=== PATIENT | male | born 1940 | race Caucasian/White ===

== ENCOUNTER 2020-02-09 12:39 | Outpatient (CLI) | payer MEDICARE, OTHER, SELFPAY ==
--- NOTE | ~2020-02-09 | MR_ITS ---
EXAMINATION: MR cervical spine wo con EXAM DATE: 02/09/2020 14:46 INDICATION: Tingling down both arms, progressing. Neck and arm pain. TECHNIQUE: Multi-sequential, multiplanar MR images of the cervical spine were obtained without contra st. Axial T2, axial T2 MERGE sequence. Sagittal T1, T2, T2 fat saturation images also obtained. The re are no prior studies for comparison. FINDINGS: Fused C5-6 vertebral bodies with reversal of normal cervical lordosis. There is moderate d isc disease at C6-7 and mild to moderate C7-T1. The spinal cord signal intensity and intrinsic morpho logy is normal. Cervicomedullary junction is normal in appearance. There are no suspicious marrow sig nal abnormalities. Paraspinal soft tissue is unremarkable. Level by level evaluation: C2-C3: Disc does not extend beyond the endplate margin. Uncovertebral joint arthropathy: None. Facet joint arthropathy: Moderate right, mild to moderate left. Neural foraminal stenosis: Mild to moderate right. Central canal stenosis: No stenosis. C3-C4: There is a mild diffuse disc bulge. Uncovertebral joint arthropathy: Mild to moderate right, mild left. Facet joint arthropathy: Severe right, mild left. Neural foraminal stenosis: Moderate to severe right, mild to moderate left. Central canal stenosis: Minimal. C4-C5: Disc does not extend beyond the endplate margin. Uncovertebral joint arthropathy: Mild to moderate bilateral. Facet joint arthropathy: Severe right, mild left. Neural foraminal stenosis: Mild to moderate right, mild left. Central canal stenosis: No stenosis. C5-C6: This level is fused. Uncovertebral joint arthropathy: Fused, but moderate hypertrophy on the left and mild on the right. Facet joint arthropathy: Mild. Neural foraminal stenosis: Mild left. Central canal stenosis: No stenosis. C6-C7: There is a moderate diffuse disc bulge. Uncovertebral joint arthropathy: Severe. Facet joint arthropathy: Mild to moderate. Neural foraminal stenosis: Moderate to severe bilateral. Central canal stenosis: Mild to moderate . Central canal measures 6-7 mm in mid sagittal AP diameter . C7-T1: There is a moderate diffuse disc bulge. Uncovertebral joint arthropathy: Severe right, moderate to severe left. Facet joint arthropathy: Moderate bilateral. Neural foraminal stenosis: Severe right, moderate to severe left. Central canal stenosis: Mild. IMPRESSION: 1. Advanced arthropathy contributing to significant multilevel neural foraminal stenosis. Reviewed, dictated and finalized at location B. IMPRESSION: 1. Advanced arthropathy contributing to significant multilevel neural foramina l stenosis.
== END 2020-02-09 12:40 | disposition home or self-care (01) ==
LOC: ANHIMG 12:43
PROVIDERS: PCP Internal Medicine
DX: M54.2 Cervicalgia (principal)
CPT/HCPCS: 72141

== ENCOUNTER 2020-05-25 13:34 | Emergency (ER) | payer MEDICARE, OTHER, SELFPAY ==
[2020-05-25 13:46] VITALS: BP 161/87; PULSE 85; RESP 20; TEMP 36.8; O2SAT 99
--- NOTE | 2020-05-25 14:12 | ED.SKABFB ---
HPI - Skin/Abscess/Foreign Bdy General Chief complaint: Skin/Abscess/Foreign Body Stated complaint: rash Time Seen by Provider: 05/25/20 14:05 Source: patient Mode of arrival: ambulatory Limitations: no limitations History of Present Illness HPI narrative: Patient is an 80-year-old male who presents complaining of rash to chest intermittently x2 months, with increased itching starting early a.m. Patient also reports small patch of rash to the left lower leg. He reports using lotion this a.m. without relief. He denies using new soaps, detergents, or lotions. He denies all other complaints. MD complaint: rash Related Data Home Medications Medication Instructions Recorded Confirmed albuterol sulfate 90 mcg/actuation 1 inhalation INHALATION Q4H 07/20/19 03/12/20 aerosol inhaler aspirin 81 mg tablet,delayed 81 mg PO DAILY 07/20/19 03/12/20 release azelastine 137 mcg (0.1 %) nasal 137 mcg NASAL Q12H 07/20/19 03/12/20 spray aerosol clopidogrel 75 mg tablet 75 mg PO DAILY 07/20/19 03/12/20 febuxostat 40 mg tablet 40 mg PO DAILY 07/20/19 03/12/20 nitroglycerin 0.4 mg sublingual 0.4 mg SUBLINGUAL Q5M PRN 07/20/19 03/12/20 tablet pantoprazole 40 mg tablet,delayed 40 mg PO QAM 07/20/19 03/12/20 release pregabalin 75 mg capsule 75 mg PO BID 07/20/19 03/12/20 vit C 250 mg-E 200 unit-zinc 40 1 tablet PO BID 07/20/19 03/12/20 mg-copper 1 sa-lchmuq-ovvxgb capsule metoprolol succinate 50 mg 25 mg PO BID tablet 12/13/19 03/12/20 tablet,extended release 24 hr midodrine 2.5 mg tablet 2.5 mg PO BID tablet 12/13/19 03/12/20 polymyxin B sulfate 10,000 2 drop OPHTHALMIC (EYE) ONCE ml 12/13/19 03/12/20 unit-trimethoprim 1 mg/mL eye drops vbqfuiwxwrzue-hezlsihd-srorloe 500 1 tablet PO .at bedtime PRN tablet 02/08/20 03/12/20 mg-25 mg-15 mg tablet tamsulosin 0.4 mg capsule 0.8 mg PO DAILY cap 02/08/20 03/12/20 Allergies Allergy/AdvReac Type Severity Reaction Status Date / Time Eanoevg-Fxc-Xnv Reductase Allergy Unknown Muscle Verified 05/25/20 14:12 Inhibitor Twitching zolpidem Allergy Unknown Mental Verified 05/25/20 14:12 Status change meperidine AdvReac Unknown Nausea and Verified 05/25/20 14:12 Vomiting Review of Systems Review of Systems: Narrative: CONSTITUTIONAL: Denies fever, chills, or sweats. EYES: Denies visual changes, redness, or discharge. ENT: Denies rhinorrhea, congestion, sore throat, or otalgia. CARDIOVASCULAR: Denies chest pain, palpitations, or edema. RESPIRATORY: Denies cough or dyspnea. GASTROINTESTINAL: Denies abdominal pain, nausea, vomiting, or diarrhea. GENITOURINARY: Denies dysuria or hematuria. SKIN: Reports rash and itching to chest MUSCULOSKELETAL: Denies back pain, joint pain, or myalgia. NEUROLOGIC: Denies headache, numbness, dizziness, or weakness. PSYCHIATRIC: Denies anxiety or depression. [facility] Past Medical History Medical History Heart attack 2012 History of left heart catheterization 2011,2018,2019 History of stroke 2019 Hypothyroidism (acquired) Torn rotator cuff Vitamin D deficiency, unspecified Surgical History Surgical History History of appendectomy 1962 History of back surgery 1986, 1990 History of heart bypass surgery Triple bypass 2018 History of throat surgery History of tonsillectomy Status post trigger finger release Family History Family History Mother Family history of diabetes mellitus in first degree relative Diabetes mellitus Kidney disease Father Family history of congestive heart failure Macular degeneration Sibling Macular degeneration Social History Social History Smoking status: Never smoker Second hand tobacco smoke exposure: No Alcohol intake: current Exam Narrative:
== END 2020-05-25 14:34 | disposition home or self-care (01) ==
LOC: EXPTROY 14:35 → EXPTRAD 06-04 11:45
PROVIDERS: Emergency Provider Nurse Practitioner; PCP Internal Medicine
DX: L25.9 Unspecified contact dermatitis, unspecified cause (principal); I25.2 Old myocardial infarction; Z86.73 Personal history of transient ischemic attack (TIA), and cerebral infarction without residual deficits; E03.9 Hypothyroidism, unspecified; Z95.1 Presence of aortocoronary bypass graft; Z79.82 Long term (current) use of aspirin
CPT/HCPCS: 73030; 99213; G0463

== ENCOUNTER → 2020-06-04 13:34 | Outpatient (CLI) | payer MEDICARE, OTHER, SELFPAY ==
--- NOTE | ~2020-06-04 | XR_ITS ---
CORRECTED REPORT Moved from [id number] to [id number]. 06/11/2020 isaura EXAMINATION: XR shoulder LT min 2V DATE: 06/04/2020 11:55 INDICATION: Left shoulder pain. TECHNIQUE: 4 views of left shoulder were obtained. COMPARISON: None. FINDINGS: Bone alignment is normal. No fracture. There is mild osteoarthritis of glenohumeral joint and severe osteoarthritis of acromioclavicular joint. Median sternotomy wires and mediastinal surgical clips are seen, likely from prior coronary artery bypass grafting. There is a vascular stent in the mediastinum. IMPRESSION: 1. Polyarticular osteoarthritis. Reviewed, dictated and finalized at location A. AMIN MESSINA
== END ==
PROVIDERS: PCP Internal Medicine; Visit Provider Internal Medicine
DX: M19.012 Primary osteoarthritis, left shoulder (principal)
CPT/HCPCS: 73030

== ENCOUNTER 2020-07-16 17:28 | Inpatient (IN) | payer MEDICARE, OTHER, SELFPAY ==
[2020-07-16] VITALS (7 sets, daily range): BP systolic 146–169; BP diastolic 75–86; PULSE 93–108; RESP 20–24; TEMP 36.2–37.8; O2SAT 90–100; BMI 27.3
--- NOTE | ~2020-07-16 | XR_ITS ---
EXAMINATION: XR chest 1V portable DATE: 07/19/2020 18:07 INDICATION: COVID positive. Shortness of breath. TECHNIQUE: frontal view of the chest was obtained. COMPARISON: Chest radiograph dated 07/16/2020 FINDINGS: Improved expansion of the lungs with resolution of prior airspace opacities. No new opacities, pulmon vibha edema, pleural effusion or pneumothorax. The cardiomediastinal silhouette is normal. Median tolliver otomy wires and mediastinal surgical clips are seen, likely from prior coronary artery bypass graftin g. Left pectoral implantable monitor tech. IMPRESSION: 1. Resolution of prior airspace opacities. No evident acute cardiopulmonary disease. Reviewed, dictated and finalized at location A. T DESK ADMIN IMPRESSION: 1. Resolution of prior airspace opacities. No evident acute cardiopulmonary dis ease.
--- NOTE | ~2020-07-16 | XR_ITS ---
EXAMINATION: XR chest 1V portable DATE: 07/16/2020 18:06 INDICATION: COVID positive. Shortness of breath. TECHNIQUE: frontal view of the chest was obtained. COMPARISON: Chest radiograph dated 01/01/[address] dated 02/22/2019 FINDINGS: Subtle airspace opacities in the left mid and lower and right lower lung zones. No pleural effusion o r pneumothorax. The cardiomediastinal silhouette is normal. Median sternotomy wires and mediastinal s urgical clips are seen, likely from prior coronary artery bypass grafting. Left pectoral implantable consumer marketing specialist. IMPRESSION: 1. Subtle opacities in the left mid and bilateral lower lung zones which could represent pneumonia, a telectasis or mild pulmonary edema. Reviewed, dictated and finalized at location A. UAL CLASSROOM MANAGER IMPRESSION: 1. Subtle opacities in the left mid and bilateral lower lung zones which could represent pneumonia, atelectasis or mild pulmonary edema.
--- NOTE | 2020-07-16 17:35 | ECG_ITS ---
Measurements Intervals [place] Rate: 94 P: 10 AL: 172 QRS: -55 QRSD: 98 T: 20 QT: 333 QTc: 418 Interpretive Statements SINUS RHYTHM POSSIBLE LEFT ATRIAL ENLARGEMENT RSR' IN V1 OR V2, CONSIDER RIGHT VENTRICULAR HYPERTROPHY OR RIGHT VCD LEFT ANTERIOR FASCICULAR BLOCK POOR R WAVE PROGRESSION, ANTERIOR LEADS ABNORMAL ECG Electronically Signed On 07-17-2020 6:59:13 RANGE ECOLOGIST by James Sanchez D.O.
--- NOTE | 2020-07-16 18:03 | ED.GENADULT ---
HPI - General Adult General Chief complaint: Shortness of Breath/Dyspnea Stated complaint: covid +, sob Time Seen by Provider: 07/16/20 17:49 Source: patient History of Present Illness HPI narrative: Patient is a 80 y/o male complaining of severe cough starting 2 weeks ago. He states that he has been taking [place] cough drop which did not help. He is not coughing up anything. He also has intermittent fever and SOB. He tested positive for COVID on 07/10. Related Data Home Medications Medication Instructions Recorded Confirmed albuterol sulfate 90 mcg/actuation 1 inhalation INHALATION Q4H 07/20/19 07/05/20 aerosol inhaler aspirin 81 mg tablet,delayed 81 mg PO DAILY 07/20/19 07/05/20 release azelastine 137 mcg (0.1 %) nasal 137 mcg NASAL Q12H 07/20/19 07/05/20 spray aerosol clopidogrel 75 mg tablet 75 mg PO DAILY 07/20/19 07/05/20 febuxostat 40 mg tablet 40 mg PO DAILY 07/20/19 07/05/20 nitroglycerin 0.4 mg sublingual 0.4 mg SUBLINGUAL Q5M PRN 07/20/19 07/05/20 tablet pantoprazole 40 mg tablet,delayed 40 mg PO QAM 07/20/19 07/05/20 release pregabalin 75 mg capsule 75 mg PO BID 07/20/19 07/05/20 metoprolol succinate 50 mg 25 mg PO BID tablet 12/13/19 07/05/20 tablet,extended release 24 hr polymyxin B sulfate 10,000 2 drop OPHTHALMIC (EYE) ONCE ml 12/13/19 07/05/20 unit-trimethoprim 1 mg/mL eye drops ijhywvcafzbsv-uovuvhsc-pjtakdl 500 1 tablet PO .at bedtime PRN tablet 02/08/20 07/05/20 mg-25 mg-15 mg tablet tamsulosin 0.4 mg capsule 0.4 mg PO DAILY cap 02/08/20 07/05/20 acetaminophen 500 mg PO DAILY 05/25/20 07/05/20 insulin aspart U-100 [Novolog 1 sliding scale dose SUBCUT 05/25/20 07/05/20 U-100 Insulin aspart] USEASDIRECTD insulin glargine 34 unit SUBCUT QPM 05/25/20 07/05/20 vit C,H-Uq-hkssw-lutein-zeaxan 1 tablet PO BID 05/25/20 07/05/20 [PreserVision AREDS-2] vitamin B complex [B 1 tablet PO DAILY 05/25/20 07/05/20 Complex-Vitamin B12] midodrine 5 mg tablet 5 mg PO BID tablet 06/04/20 07/05/20 ticagrelor 60 mg tablet 60 mg PO Q12H 07/05/20 07/05/20 Allergies Allergy/AdvReac Type Severity Reaction Status Date / Time Qwqgrqd-Jlj-Ctf Reductase Allergy Unknown Muscle Verified 07/05/20 10:27 Inhibitor Twitching zolpidem Allergy Unknown Mental Verified 07/05/20 10:27 Status change meperidine AdvReac Unknown Nausea and Verified 07/05/20 10:27 Vomiting Review of Systems Constitutional: Constitutional: Denies chills, Reports fever(s), Denies headache(s) and Denies weakness Eyes: Eyes: Denies blurry vision ENT: Denies headache(s) and Denies neck pain Cardiovascular: Cardiovascular: Denies chest pain and Reports dyspnea Respiratory: Respiratory: Reports cough and Reports dyspnea Gastrointestinal: Gastrointestinal: Denies abdominal pain, Denies diarrhea, Denies nausea and Denies vomiting Genitourinary: Genitourinary: Denies hematuria and Denies dysuria Musculoskeletal: Musculoskeletal: Denies back pain and Denies neck pain Neurologic: Denies headache(s) and Denies weakness PMFSH Past Medical History Medical History Heart attack 2012 History of left heart catheterization 2011,2018,2019 History of stroke 2019 Hypothyroidism (acquired) Torn rotator cuff Vitamin D deficiency, unspecified Surgical History Surgical History History of appendectomy 1963 History of back surgery 1986, 1990 History of heart bypass surgery Triple bypass 2018 History of throat surgery History of tonsillectomy Status post trigger finger release Family History Family History Mother Family history of diabetes mellitus in first degree relative Diabetes mellitus Kidney disease Father Family history of congestive heart failure Macular degeneration Sibling Macular degeneration Social History Social History (Review
[2020-07-16 18:27] LABS: Basophils Percent Auto 0.3 % (0.2-1.2); Eosinophils Percent Auto 0.8 % (0-4.4); Hemoglobin 15.4 g/dL (14.0-18.0); Immature Granulocyte Absolute 0.04 K/mm3 (0.00-0.031); Lymphocytes Absolute Auto 0.49 K/mm3 (0.9-3.2); Lymphocytes Percent Auto 12.6 % (18.3-44.2); Mean Corpuscular HGB Conc 32.1 g/dl (32-36); Mean Corpuscular Hemoglobin 27.5 pg (26-34); Mean Corpuscular Volume 85.6 fl (80-100); Mean Platelet Volume 9.4 fl (7.4-10.4); Monocytes Absolute Auto 0.4 K/mm3 (0.1-0.6); Monocytes Percent Auto 9.5 % (2.6-8.5); Neutrophils Percent Auto 75.8 % (45.5-73.1); Platelet Count Result 137 k/mm3 (150-375); Red Blood Count 5.61 M/mm3 (4.6-6.20); Red Cell Distribution Width 19.3 % (11.5-14.5); White Blood Count 3.9 K/mm3 (4.5-10.0)
[2020-07-16 18:36] LABS: Alanine Aminotransferase 19 U/L (4-50); Albumin Level 4.5 g/dL (3.5-5.1); Alkaline Phosphatase 87 U/L (38-126); Anion Gap 12 mmol/L (8-16); Aspartate Amino Transferase 41 U/L (17-59); Bilirubin,Total 0.5 mg/dL (0.2-1.3); Blood Urea Nitrogen 38 mg/dL (9-20); Calcium 8.8 mg/dL (8.4-10.2); Carbon Dioxide 20 mmol/L (22-30); Chloride 103 mmol/L (98-107); Estimated CRCL calculation 18 ml/min; Estimated Glomerular Filt Rate 19; Glucose 136 mg/dL (75-110); Potassium 5.4 mmol/L (3.4-5.0); Sodium 135 mmol/L (137-145)
[2020-07-16 18:59] LABS: Alveolar/Arterial O2 Gradient 48.2 mmHg; Base Excess ABG -8.3 mEq/l (+/-2.0); Fractional Inspired Oxygen 21 %; HCO3 ABG 14.6 mEq/l (22.0-26.0); Oxygen Content ABG 18.7 %vol (16.0-22.0); Oxygen Saturation ABG 94.7 % (95.0-100.0); Oxyhemoglobin 91.6 % THb (90.0-100.0); PCO2 ABG 24.8 mmHg (35.0-45.0); PO2 ABG 71.8 mmHg (80.0-100.0); PO2 FiO2 Ratio Arterial Blood 3.42 %; Total Hemoglobin 14.5 g/dL (12.0-18.0); pH ABG 7.389 (7.350-7.450)
[2020-07-16 19:00] LABS: Device ROOM AIR; Modified Allen's Test Pass; Site Drawn RIGHT RADIAL
--- NOTE | 2020-07-16 19:05 | PC.NURSE ---
report to litzy davis at this time, he has assumed pt care.
[2020-07-16] MEDS: SODIUM CHLORIDE 0.9% IV 1,000 ML 999 ML IV CONT (19:41)
--- NOTE | 2020-07-16 20:50 | PM.IMHP ---
H&P: HPI History of Present Illness Date/Time: 07/16/20 20:50 Chief complaint: Covid pneumonia Narrative: Freddy Ferguson is a 80 year old male with PMHx significant for CAD s/p CABG in 2018, recent PTCI earlier in June of this year, patient attended a wedding a week ago patient states that ever since he has not been feeling well, has had generalized weakness, dry cough, loss of sense of smell and taste, sob, fevers, chills, poor appetite. Patient tested positive for Covid 19 novel virus. Preliminary work up was significant for chest xr with infiltrates. Review of Systems Review of Systems: Narrative: Generalized malaise, generalized weakness, loss of taste and smell. Constitutional: Comments: Fevers, rigors, chills. Eyes: Comments: no vision changes. ENT: Comments: no ear ache, no throat pain. Cardiovascular: Comments: no chest pain. Respiratory: Comments: cough, sob. Gastrointestinal: Comments: n/v/diarrhea, poor appetite. Musculoskeletal: Comments: muscle aches and pains. Integumentary/Breasts: Comments: no rashes. Neurologic: Comments: no sensory motr deficit. Hematologic/Lymphatic: Comments: no LAP. PMFSH Past Medical History Medical History Heart attack 2012 History of left heart catheterization 2011,2018,2019 History of stroke 2019 Hypothyroidism (acquired) Torn rotator cuff Vitamin D deficiency, unspecified Surgical History Surgical History History of appendectomy 1963 History of back surgery 1990 History of heart bypass surgery Triple bypass 2018 History of throat surgery History of tonsillectomy Status post trigger finger release Family History Family History Mother Family history of diabetes mellitus in first degree relative Diabetes mellitus Kidney disease Father Family history of congestive heart failure Macular degeneration Sibling Macular degeneration Social History Social History Smoking status: Never smoker Second hand tobacco smoke exposure: No Alcohol intake: current Gender identity (if verbalized by the patient): Male Meds Home Medications and Allergies Home Medications Medication Instructions Recorded Confirmed Type albuterol sulfate 90 mcg/actuation 1 inhalation INHALATION Q4H PRN 07/20/19 07/16/20 History aerosol inhaler aspirin 81 mg tablet,delayed 81 mg PO DAILY 07/20/19 07/16/20 History release azelastine 137 mcg (0.1 %) nasal 137 mcg NASAL Q12H 07/20/19 07/17/20 History spray aerosol clopidogrel 75 mg tablet 75 mg PO DAILY 07/20/19 07/17/20 History febuxostat 40 mg tablet 40 mg PO DAILY 07/20/19 07/17/20 History nitroglycerin 0.4 mg sublingual 0.4 mg SUBLINGUAL Q5M PRN 07/20/19 07/17/20 History tablet pantoprazole 40 mg tablet,delayed 40 mg PO QAM 07/20/19 07/17/20 History release pregabalin 75 mg capsule 75 mg PO BID 07/20/19 07/17/20 History polyethylene glycol 3350 17 gram 17 gm PO DAILY #1530 each 09/05/19 07/17/20 Rx oral powder packet metoprolol succinate 50 mg 25 mg PO BID tablet 12/13/19 07/17/20 History tablet,extended release 24 hr polymyxin B sulfate 10,000 2 drop OPHTHALMIC (EYE) ONCE ml 12/13/19 07/17/20 History unit-trimethoprim 1 mg/mL eye drops cyanocobalamin (vitamin B-12) 3,000 mcg PO DAILY 90 Days #90 cap 12/20/19 07/17/20 Rx 3,000 mcg capsule svpztnhwesofk-rlmeohcc-koaivtt 500 1 tablet PO .at bedtime PRN tablet 02/08/20 07/16/20 History mg-25 mg-15 mg tablet tamsulosin 0.4 mg capsule 0.4 mg PO DAILY cap 02/08/20 07/17/20 History acetaminophen 500 mg PO DAILY 05/25/20 07/16/20 History insulin aspart U-100 [Novolog 1 sliding scale dose SUBCUT 05/25/20 07/17/20 History U-100 Insulin aspart] USEASDIRECTD insulin glargine 34 unit SUBCUT QPM 05/25/20 07/17/20 History vi
--- NOTE | 2020-07-16 22:00 | ADMGEN ---
This patient, Freddy Ferguson, was admitted to [facility] Surg Room 317-01. Patient/family oriented to hospital policies and general routines including ID bracelet, bed and alarms, visiting hours, pain management, procedures, bathroom and other care routines, personal items, smoking policy, room service/diet, and visiting hours. Information on how to activate the Rapid Response Team has been discussed. Patient/Family are encouraged to report perceived risks to care and to ask questions if they do not understand what they are told or what they should do.
[2020-07-16 23:52] LABS: Alanine Aminotransferase 16 U/L (4-50)
[2020-07-17] VITALS (8 sets, daily range): BP systolic 117–136; BP diastolic 57–77; PULSE 68–91; RESP 16–20; TEMP 36.2–36.8; O2SAT 95–97
[2020-07-17 02:31] LABS: Glucose Point of Care 113 (65-105)
[2020-07-17 06:45] LABS: Alanine Aminotransferase 15 U/L (4-50)
[2020-07-17 06:47] LABS: Sodium 134 mmol/L (137-145)
[2020-07-17 06:50] LABS: Anion Gap 10 mmol/L (8-16); Blood Urea Nitrogen 34 mg/dL (9-20); Calcium 7.8 mg/dL (8.4-10.2); Carbon Dioxide 17 mmol/L (22-30); Chloride 107 mmol/L (98-107); Estimated CRCL calculation 22 ml/min; Estimated Glomerular Filt Rate 25; Glucose 86 mg/dL (75-110); Potassium 4.8 mmol/L (3.4-5.0)
[2020-07-17] MEDS: SODIUM CHLORIDE 0.9% IV 1,000 ML 75 ML IV CONT ×2 (07:07→21:34)
[2020-07-17 09:24] LABS: Hemoglobin A1C 5.9 % (<5.7)
[2020-07-17] MEDS: METOPROLOL SUCCINATE EXT REL 25 MG TABCR PO ×2 (10:19→21:35)
[2020-07-17] MEDS: POLYMYXIN/TRIMETHOPRIM OPHTH 10 ML DROPS 2 DROP EACH EYE (10:20)
[2020-07-17] MEDS: polyethylene glycoL 3350 17 GM POWD.PACK PO (10:20)
[2020-07-17] MEDS: TICAGRELOR 60 MG TABLET PO ×2 (10:21→21:35)
[2020-07-17] MEDS: PANTOPRAZOLE 40 MG TABLET PO (10:21)
[2020-07-17] MEDS: TAMSULOSIN HCL 0.4 MG CAPSULE PO (10:21)
[2020-07-17] MEDS: CYANOCOBALAMIN 1,000 MCG TABLET 3000 MCG PO (10:21)
[2020-07-17] MEDS: VITAMIN B COMPLEX CAPSULE 1 CAP PO (10:22)
[2020-07-17] MEDS: MIDODRINE HCL 2.5 MG TABLET 5 MG PO ×2 (10:22→17:16)
[2020-07-17] MEDS: OPTI-GEN TAB 1 TABLET PO ×2 (10:22→17:16)
[2020-07-17] MEDS: ASPIRIN 81 MG ENTERIC TABLET PO (10:22)
[2020-07-17] MEDS: LEVOTHYROXINE SODIUM 25 MCG TABLET PO (10:22)
[2020-07-17] MEDS: ENOXAPARIN 30 MG/0.3 ML SYRINGE SUB-Q (10:23)
[2020-07-17] MEDS: AZELASTINE HCL NASAL 0.1% 137 MCG/SPR 30 ML BTL 1 SPRAY NASAL ×2 (10:23→21:36)
[2020-07-17] MEDS: DEXAMETHASONE 2 MG TABLET 6 MG PO (10:23)
[2020-07-17] MEDS: ACETAMINOPHEN 500 MG TABLET PO (10:26)
[2020-07-17] MEDS: PREGABALIN (*CRX) 75 MG CAPSULE PO ×2 (10:26→17:15)
[2020-07-17 12:05] LABS: Glucose Point of Care 152 (65-105)
--- NOTE | 2020-07-17 15:55 | PM.IMPN ---
Progress Note: A&P Assessment and Plan (1) COVID-19 virus infection: Code(s): U07.1 - COVID-19 Status: Acute Assessment and Plan: Chest xr with infiltrates, patient with significant PMHx for CAD, T2DM, CABG, recent PTCI. Started on Remdesivir + Dexamethasone (2) Ischemic cardiomyopathy: Code(s): I25.5 - Ischemic cardiomyopathy Status: Acute Assessment and Plan: Continue home meds Stable (3) Chronic atrial fibrillation: Onset Date: 03/08/19 Code(s): I48.20 - Chronic atrial fibrillation, unspecified Status: Acute Assessment and Plan: Rate controlled Not on anticoagulation (4) Chronic diastolic heart failure with preserved ejection fraction: Code(s): I50.32 - Chronic diastolic (congestive) heart failure Status: Acute Assessment and Plan: Stable (5) Chronic gout, unspecified, without tophus (tophi): Code(s): M1A.9XX0 - Chronic gout, unspecified, without tophus (tophi) Status: Chronic Assessment and Plan: Stable (6) Chronic kidney disease, stage 3 (moderate): Onset Date: 03/08/19 Code(s): N18.3 - Chronic kidney disease, stage 3 (moderate) Status: Chronic Assessment and Plan: creat is 2.5 (7) JACK (acute kidney injury): Code(s): N17.9 - Acute kidney failure, unspecified Status: Acute Assessment and Plan: continue hydration, creat is 2.4 Subjective Date/time seen: 07/17/20 15:55 Interval history: 80 year old male with PMHx significant for CAD s/p CABG in 2018, recent PTCI earlier in June of this year, patient attended a wedding a week ago patient states that ever since he has not been feeling well, has had generalized weakness, dry cough, loss of sense of smell and taste, sob, fevers, chills, poor appetite. Patient tested positive for Covid 19 novel virus. Chest hurts and dry cough. no headache. Review of Systems Review of Systems: All systems reviewed & are unremarkable except as noted in HPI and below Exam Narrative: Exam Narrative: pleasant man elderly comfortable off oxygen Resp: Effort & Inspection: normal respiratory effort GI: Inspection: normal to inspection Skin: General skin exam: normal color Lesions: no lesions Rashes: no rashes Neuro: General: patient oriented x3 and CN's II-XI intact bilaterally Cranial nerves: Yes CN's II-XII intact bilaterally and Yes Equal, round and reactive pupils present Cognition (Neuro): normal cognition Speech: normal speech Gait exam (Neuro): Normal gait present Motor exam (neuro): 5/5 motor strength present throughout Extrem: General: other (excoriations on both legs with bandages on ) Objective Data Vital Signs Vital Signs: Vital Signs - 24 hr 07/16/20 17:32 07/16/20 17:51 07/16/20 18:30 Temperature 36.2 C L Pulse Rate 105 H 104 H 93 Respiratory Rate 24 H 20 Blood Pressure 146/81 H 169/86 H Pulse Oximetry 93 90 100 07/16/20 19:02 07/16/20 20:49 07/16/20 22:00 Temperature 37.8 C H Pulse Rate 94 96 97 Respiratory Rate 21 H 22 H 20 Blood Pressure 155/81 H 157/86 H 147/75 H Pulse Oximetry 96 98 96 07/16/20 22:30 07/17/20 00:00 07/17/20 04:00 Temperature 36.8 C 36.6 C Pulse Rate 108 H 91 82 Respiratory Rate 20 20 Blood Pressure 133/77 136/70 Pulse Oximetry 96 95 07/17/20 08:00 07/17/20 10:19 07/17/20 12:00 Temperature 36.3 C L 36.3 C L Pulse Rate 80 82 82 Respiratory Rate 16 18 Blood Pressure 122/66 130/63 Pulse Oximetry 96 97 Intake/Output Intake/Output: Intake & Output 07/14/20 07/15/20 07/16/20 07/17/20 23:59 23:59 23:59 23:59 Intake Total 1000 440 Output Total 300 Balance 1000 140 Meds/Results Medications: Active Medications Generic Name Dose Route Start Last Admin Trade Name Freq PRN Reason Stop Dose Admin Acetaminophen 650 mg 07/16/20 20:52 Acetaminophen 325 Mg Tablet PO Q4H PRN Mild Pain (1-3) or Fever Acetaminoph
[2020-07-17] MEDS: INSULIN GLARGINE (*BKC) 100 UNITS/ML 34 UNITS SUB-Q (17:12)
[2020-07-17] MEDS: LORATADINE 5 MG TABLET PO (17:17)
[2020-07-17 18:18] LABS: Glucose Point of Care 164 (65-105)
[2020-07-17 21:53] LABS: Glucose Point of Care 187 (65-105)
[2020-07-18] VITALS (8 sets, daily range): BP systolic 133–147; BP diastolic 68–83; PULSE 59–103; RESP 16–20; TEMP 36.3–36.7; O2SAT 96–99
[2020-07-18] MEDS: LEVOTHYROXINE SODIUM 25 MCG TABLET PO (05:54)
[2020-07-18 07:12] LABS: Alanine Aminotransferase 19 U/L (4-50)
[2020-07-18] MEDS: DEXAMETHASONE 2 MG TABLET 6 MG PO (07:59)
[2020-07-18 08:12] LABS: Glucose Point of Care 144 (65-105)
[2020-07-18] MEDS: ERGOCALCIFEROL 50,000 UNIT CAPSULE 50000 UNITS PO (08:14)
[2020-07-18] MEDS: PANTOPRAZOLE 40 MG TABLET PO (08:15)
[2020-07-18] MEDS: VITAMIN B COMPLEX CAPSULE 1 CAP PO (08:15)
[2020-07-18] MEDS: CYANOCOBALAMIN 1,000 MCG TABLET 3000 MCG PO (08:15)
[2020-07-18] MEDS: OPTI-GEN TAB 1 TABLET PO ×2 (08:16→16:24)
[2020-07-18] MEDS: POLYMYXIN/TRIMETHOPRIM OPHTH 10 ML DROPS 2 DROP EACH EYE (08:17)
[2020-07-18] MEDS: TAMSULOSIN HCL 0.4 MG CAPSULE PO (08:17)
[2020-07-18] MEDS: ENOXAPARIN 30 MG/0.3 ML SYRINGE SUB-Q (08:17)
[2020-07-18] MEDS: ASPIRIN 81 MG ENTERIC TABLET PO (08:17)
[2020-07-18] MEDS: TICAGRELOR 60 MG TABLET PO ×2 (08:18→20:50)
[2020-07-18] MEDS: MIDODRINE HCL 2.5 MG TABLET 5 MG PO ×2 (08:18→16:24)
[2020-07-18] MEDS: METOPROLOL SUCCINATE EXT REL 25 MG TABCR PO ×2 (08:18→20:50)
[2020-07-18] MEDS: polyethylene glycoL 3350 17 GM POWD.PACK PO (08:19)
[2020-07-18] MEDS: AZELASTINE HCL NASAL 0.1% 137 MCG/SPR 30 ML BTL 1 SPRAY NASAL ×2 (08:43→20:50)
[2020-07-18] MEDS: ACETAMINOPHEN 500 MG TABLET PO (09:12)
[2020-07-18] MEDS: PREGABALIN (*CRX) 75 MG CAPSULE PO ×2 (09:13→16:24)
[2020-07-18 11:47] LABS: Glucose Point of Care 187 (65-105)
[2020-07-18 16:39] LABS: Glucose Point of Care 184 (65-105)
--- NOTE | 2020-07-18 16:48 | PM.IMPN ---
Progress Note: A&P Assessment and Plan (1) COVID-19 virus infection: Code(s): U07.1 - COVID-19 Status: Acute Assessment and Plan: Chest xr with infiltrates, patient with significant PMHx for CAD, T2DM, CABG, recent PTCI. Dexamethasone, Remdesivir was never started because creat was high, creat is high today 2.5 add albuterol and tessalon perles (2) Ischemic cardiomyopathy: Code(s): I25.5 - Ischemic cardiomyopathy Status: Acute Assessment and Plan: Continue home meds Stable (3) Chronic atrial fibrillation: Onset Date: 03/08/19 Code(s): I48.20 - Chronic atrial fibrillation, unspecified Status: Acute Assessment and Plan: Rate controlled Not on anticoagulation (4) Chronic diastolic heart failure with preserved ejection fraction: Code(s): I50.32 - Chronic diastolic (congestive) heart failure Status: Acute Assessment and Plan: Stable (5) Chronic gout, unspecified, without tophus (tophi): Code(s): M1A.9XX0 - Chronic gout, unspecified, without tophus (tophi) Status: Chronic Assessment and Plan: Stable (6) Chronic kidney disease, stage 3 (moderate): Onset Date: 03/08/19 Code(s): N18.3 - Chronic kidney disease, stage 3 (moderate) Status: Chronic Assessment and Plan: creat is 2.5, continue fluids. no perpherial edema ok to continue (7) JACK (acute kidney injury): Code(s): N17.9 - Acute kidney failure, unspecified Status: Acute Assessment and Plan: continue hydration, creat is 2.4 Subjective Date/time seen: 07/18/20 16:48 Interval history: 80 year old male with PMHx significant for CAD s/p CABG in 2018, recent PTCI earlier in June of this year, patient attended a wedding a week ago patient states that ever since he has not been feeling well, has had generalized weakness, dry cough, loss of sense of smell and taste, sob, fevers, chills, poor appetite. Patient tested positive for Covid 19 novel virus. Dry cough, tired and weak Review of Systems Review of Systems: All systems reviewed & are unremarkable except as noted in HPI and below Exam Narrative: Exam Narrative: pleasant man elderly looks unwell, pt has a wet cough Resp: Effort & Inspection: normal respiratory effort GI: Inspection: normal to inspection Skin: General skin exam: normal color Lesions: no lesions Rashes: no rashes Wounds: no wounds Neuro: General: patient oriented x3 and CN's II-XI intact bilaterally Cranial nerves: Yes CN's II-XII intact bilaterally and Yes Equal, round and reactive pupils present Cognition (Neuro): normal cognition Speech: normal speech Gait exam (Neuro): Normal gait present Motor exam (neuro): 5/5 motor strength present throughout Extrem: General: normal to inspection, full ROM and no pedal edema Objective Data Vital Signs Vital Signs: Vital Signs - 24 hr 07/17/20 20:00 07/17/20 21:35 07/18/20 00:00 Temperature 36.6 C 36.7 C Pulse Rate 68 72 64 Respiratory Rate 20 20 Blood Pressure 117/66 147/74 H Pulse Oximetry 96 99 07/18/20 04:00 07/18/20 08:00 07/18/20 08:18 Temperature 36.7 C 36.6 C Pulse Rate 63 67 65 Respiratory Rate 20 18 Blood Pressure 142/76 H 145/75 H Pulse Oximetry 97 99 07/18/20 12:00 Temperature 36.6 C Pulse Rate 66 Respiratory Rate 18 Blood Pressure 136/83 Pulse Oximetry 98 Intake/Output Intake/Output: Intake & Output 07/15/20 07/16/20 07/17/20 07/18/20 23:59 23:59 23:59 23:59 Intake Total 1000 2230 1440 Output Total 420 600 Balance 1000 1810 840 Meds/Results Medications: Active Medications Generic Name Dose Route Start Last Admin Trade Name Freq PRN Reason Stop Dose Admin Acetaminophen 650 mg 07/16/20 20:52 Acetaminophen 325 Mg Tablet PO Q4H PRN Mild Pain (1-3) or Fever Acetaminophen 500 mg 07/17/20 09:00 07/18/20 09:12 Acetaminophen 500 Mg Tablet PO 500 mg DAILY PAULINO
[2020-07-18] MEDS: guaiFENesin 200 MG/10 ML UDC PO (17:03)
[2020-07-18] MEDS: LORATADINE 5 MG TABLET PO (17:05)
[2020-07-18] MEDS: INSULIN GLARGINE (*BKC) 100 UNITS/ML 34 UNITS SUB-Q (17:10)
[2020-07-18] MEDS: SODIUM CHLORIDE 0.9% IV 1,000 ML 75 ML IV CONT (17:11)
[2020-07-18] MEDS: BENZONATATE 100 MG CAPSULE PO (20:55)
[2020-07-18 22:37] LABS: Glucose Point of Care 180 (65-105)
[2020-07-19] VITALS (8 sets, daily range): BP systolic 125–149; BP diastolic 71–87; PULSE 62–76; RESP 16–20; TEMP 36.2–37.1; O2SAT 92–100
[2020-07-19] MEDS: LEVOTHYROXINE SODIUM 25 MCG TABLET PO (06:03)
[2020-07-19] MEDS: SODIUM CHLORIDE 0.9% IV 1,000 ML 75 ML IV CONT ×2 (06:07→16:59)
[2020-07-19 06:24] LABS: Hematocrit 38.8 % (42.0-52.0); Hemoglobin 12.5 g/dL (14.0-18.0); Mean Corpuscular HGB Conc 32.2 g/dl (32-36); Mean Corpuscular Hemoglobin 27.1 pg (26-34); Mean Platelet Volume 10.1 fl (7.4-10.4); Platelet Count Result 150 k/mm3 (150-375); Red Blood Count 4.62 M/mm3 (4.6-6.20); Red Cell Distribution Width 18.9 % (11.5-14.5); White Blood Count 10.4 K/mm3 (4.5-10.0)
[2020-07-19 06:41] LABS: Alanine Aminotransferase 16 U/L (4-50); Anion Gap 11 mmol/L (8-16); Blood Urea Nitrogen 39 mg/dL (9-20); Calcium 8.3 mg/dL (8.4-10.2); Carbon Dioxide 15 mmol/L (22-30); Chloride 111 mmol/L (98-107); Estimated CRCL calculation 28 ml/min; Estimated Glomerular Filt Rate 32; Glucose 128 mg/dL (75-110); Potassium 4.9 mmol/L (3.4-5.0); Sodium 137 mmol/L (137-145)
[2020-07-19] MEDS: VITAMIN B COMPLEX CAPSULE 1 CAP PO (09:39)
[2020-07-19] MEDS: MIDODRINE HCL 2.5 MG TABLET 5 MG PO ×2 (09:39→16:57)
[2020-07-19] MEDS: PANTOPRAZOLE 40 MG TABLET PO (09:39)
[2020-07-19] MEDS: OPTI-GEN TAB 1 TABLET PO ×2 (09:39→16:58)
[2020-07-19] MEDS: METOPROLOL SUCCINATE EXT REL 25 MG TABCR PO ×2 (09:39→21:03)
[2020-07-19] MEDS: CYANOCOBALAMIN 1,000 MCG TABLET 3000 MCG PO (09:40)
[2020-07-19] MEDS: BENZONATATE 100 MG CAPSULE PO ×3 (09:40→16:57)
[2020-07-19] MEDS: DEXAMETHASONE 2 MG TABLET 6 MG PO (09:40)
[2020-07-19] MEDS: TICAGRELOR 60 MG TABLET PO ×2 (09:41→21:03)
[2020-07-19] MEDS: ASPIRIN 81 MG ENTERIC TABLET PO (09:41)
[2020-07-19] MEDS: TAMSULOSIN HCL 0.4 MG CAPSULE PO (09:41)
[2020-07-19] MEDS: ENOXAPARIN 30 MG/0.3 ML SYRINGE SUB-Q (09:42)
[2020-07-19] MEDS: polyethylene glycoL 3350 17 GM POWD.PACK PO (09:42)
[2020-07-19] MEDS: PREGABALIN (*CRX) 75 MG CAPSULE PO ×2 (09:43→16:58)
[2020-07-19] MEDS: ACETAMINOPHEN 500 MG TABLET PO (09:43)
[2020-07-19] MEDS: POLYMYXIN/TRIMETHOPRIM OPHTH 10 ML DROPS 2 DROP EACH EYE (09:44)
[2020-07-19] MEDS: AZELASTINE HCL NASAL 0.1% 137 MCG/SPR 30 ML BTL 1 SPRAY NASAL ×2 (09:44→21:02)
[2020-07-19] MEDS: INSULIN ASPART (*BKC) 100 UNITS/ML SUB-Q (12:17)
[2020-07-19 13:07] LABS: Glucose Point of Care 234 (65-105)
--- NOTE | 2020-07-19 15:43 | PM.IMPN ---
Progress Note: A&P Assessment and Plan (1) COVID-19 virus infection: Code(s): U07.1 - COVID-19 Status: Acute Assessment and Plan: Chest xr with infiltrates, patient with significant PMHx for CAD, T2DM, CABG, recent PTCI. Dexamethasone, Remdesivir was never started because creat was high, creat is high today 2.0 add albuterol and tessalon perles I do not think there is a need for remdesivir (2) Ischemic cardiomyopathy: Code(s): I25.5 - Ischemic cardiomyopathy Status: Acute Assessment and Plan: Continue home meds Stable (3) Chronic atrial fibrillation: Onset Date: 03/08/19 Code(s): I48.20 - Chronic atrial fibrillation, unspecified Status: Acute Assessment and Plan: Rate controlled Not on anticoagulation (4) Chronic diastolic heart failure with preserved ejection fraction: Code(s): I50.32 - Chronic diastolic (congestive) heart failure Status: Acute Assessment and Plan: Stable (5) Chronic gout, unspecified, without tophus (tophi): Code(s): M1A.9XX0 - Chronic gout, unspecified, without tophus (tophi) Status: Chronic Assessment and Plan: Stable (6) Chronic kidney disease, stage 3 (moderate): Onset Date: 03/08/19 Code(s): N18.3 - Chronic kidney disease, stage 3 (moderate) Status: Chronic Assessment and Plan: creat is 2.0, stop fluids to avoid overload. (7) JACK (acute kidney injury): Code(s): N17.9 - Acute kidney failure, unspecified Status: Resolved Assessment and Plan: creat is 2, i believe this is near his baseline Subjective Date/time seen: 07/19/20 15:43 Interval history: 80 year old male with PMHx significant for CAD s/p CABG in 2018, recent PTCI earlier in June of this year, patient attended a wedding a week ago patient states that ever since he has not been feeling well, has had generalized weakness, dry cough, loss of sense of smell and taste, sob, fevers, chills, poor appetite. Patient tested positive for Covid 19 novel virus. Pt is still coughing, dry cough. sats have been good, pt not needing oxygen but feels unwell with persistent cough Review of Systems Review of Systems: All systems reviewed & are unremarkable except as noted in HPI and below Exam Narrative: Exam Narrative: pleasant man elderly looks unwell, pt has a wet cough Resp: Effort & Inspection: normal respiratory effort GI: Inspection: normal to inspection Skin: General skin exam: normal color Lesions: no lesions Rashes: no rashes Wounds: no wounds Neuro: General: patient oriented x3 and CN's II-XI intact bilaterally Cranial nerves: Yes CN's II-XII intact bilaterally and Yes Equal, round and reactive pupils present Cognition (Neuro): normal cognition Speech: normal speech Gait exam (Neuro): Normal gait present Motor exam (neuro): 5/5 motor strength present throughout Extrem: General: normal to inspection, full ROM and no pedal edema Objective Data Vital Signs Vital Signs: Vital Signs - 24 hr 07/18/20 16:00 07/18/20 20:00 07/18/20 20:50 Temperature 36.6 C 36.3 C L Pulse Rate 103 H 63 68 Respiratory Rate 16 18 Blood Pressure 133/68 140/70 Pulse Oximetry 96 99 07/19/20 00:00 07/19/20 04:00 07/19/20 08:00 Temperature 36.5 C 36.2 C L 36.6 C Pulse Rate 74 69 72 Respiratory Rate 18 16 18 Blood Pressure 137/76 138/78 125/81 Pulse Oximetry 97 96 92 07/19/20 09:50 Temperature Pulse Rate Respiratory Rate Blood Pressure Pulse Oximetry 92 Intake/Output Intake/Output: Intake & Output 07/16/20 07/17/20 07/18/20 07/19/20 23:59 23:59 23:59 23:59 Intake Total 1000 2230 2310 1450 Output Total 420 1450 700 Balance 1000 1810 860 750 Meds/Results Medications: Active Medications Generic Name Dose Route Start Last Admin Trade Name Freq PRN Reason Stop Dose Admin Acetaminophen 650 mg 07/16/20 20:52 Acetaminophen 325 Mg Tablet PO Q4H
[2020-07-19] MEDS: LORATADINE 5 MG TABLET PO (16:58)
[2020-07-19] MEDS: INSULIN GLARGINE (*BKC) 100 UNITS/ML 34 UNITS SUB-Q (17:59)
[2020-07-19 21:58] LABS: Glucose Point of Care 206 (65-105)
[2020-07-19 23:23] LABS: Glucose Point of Care 180 (65-105)
[2020-07-19 23:23] LABS: Glucose Point of Care 119 (65-105)
[2020-07-20] VITALS: BP 160/75; PULSE 75; RESP 20; TEMP 36.7; O2SAT 96
[2020-07-20 04:00] VITALS: BP 148/92; PULSE 79; RESP 20; TEMP 36.4; O2SAT 96
[2020-07-20] MEDS: LEVOTHYROXINE SODIUM 25 MCG TABLET PO (05:24)
[2020-07-20 08:00] VITALS: BP 157/74; PULSE 63; RESP 18; TEMP 36.4; O2SAT 94; O2SAT 99
[2020-07-20] MEDS: ASPIRIN 81 MG ENTERIC TABLET PO (08:17)
[2020-07-20] MEDS: PREGABALIN (*CRX) 75 MG CAPSULE PO (08:17)
[2020-07-20] MEDS: OPTI-GEN TAB 1 TABLET PO (08:17)
[2020-07-20] MEDS: CYANOCOBALAMIN 1,000 MCG TABLET 3000 MCG PO (08:17)
[2020-07-20] MEDS: BENZONATATE 100 MG CAPSULE PO ×2 (08:17→13:15)
[2020-07-20] MEDS: MIDODRINE HCL 2.5 MG TABLET 5 MG PO (08:17)
[2020-07-20] MEDS: ENOXAPARIN 30 MG/0.3 ML SYRINGE SUB-Q (08:18)
[2020-07-20] MEDS: AZELASTINE HCL NASAL 0.1% 137 MCG/SPR 30 ML BTL 1 SPRAY NASAL (08:18)
[2020-07-20] MEDS: ACETAMINOPHEN 500 MG TABLET PO (08:18)
[2020-07-20] MEDS: PANTOPRAZOLE 40 MG TABLET PO (08:18)
[2020-07-20] MEDS: TAMSULOSIN HCL 0.4 MG CAPSULE PO (08:18)
[2020-07-20] MEDS: TICAGRELOR 60 MG TABLET PO (08:18)
[2020-07-20] MEDS: METOPROLOL SUCCINATE EXT REL 25 MG TABCR PO (08:18)
[2020-07-20] MEDS: polyethylene glycoL 3350 17 GM POWD.PACK PO (08:19)
[2020-07-20] MEDS: VITAMIN B COMPLEX CAPSULE 1 CAP PO (08:19)
[2020-07-20] MEDS: DEXAMETHASONE SOD PHOS INJ 4 MG/ML VIAL 6 MG IV PUSH (08:19)
[2020-07-20] MEDS: POLYMYXIN/TRIMETHOPRIM OPHTH 10 ML DROPS 2 DROP EACH EYE (08:19)
[2020-07-20 09:41] LABS: Alanine Aminotransferase 23 U/L (4-50); Anion Gap 9 mmol/L (8-16); Blood Urea Nitrogen 39 mg/dL (9-20); Calcium 8.6 mg/dL (8.4-10.2); Carbon Dioxide 19 mmol/L (22-30); Chloride 111 mmol/L (98-107); Estimated CRCL calculation 32 ml/min; Estimated Glomerular Filt Rate 39; Glucose 134 mg/dL (75-110); Potassium 5.1 mmol/L (3.4-5.0); Sodium 139 mmol/L (137-145)
[2020-07-20 09:49] LABS: Glucose Point of Care 110 (65-105)
[2020-07-20 12:00] VITALS: BP 129/62; PULSE 72; RESP 18; TEMP 36.7; O2SAT 100
[2020-07-20 13:03] LABS: Glucose Point of Care 171 (65-105)
[2020-07-20] MEDS: guaiFENesin 200 MG/10 ML UDC PO (13:15)
--- NOTE | 2020-07-20 13:35 | PM.DS ---
DS: Admitting Diagnosis Admitting Diagnosis Admitting Diagnosis: Covid pneumonia DS: Discharge Diagnosis Discharge Diagnosis (1) COVID-19 virus infection: Code(s): U07.1 - COVID-19 Status: Acute Assessment and Plan: Chest xr with infiltrates, patient with significant PMHx for CAD, T2DM, CABG, recent PTCI. Dexamethasone, Remdesivir was never started because creat was high, creat is high today 1.7, pt is already on albuterol and tessalon perles. I do not think there is a need for remdesivir at this stage as pt has never needed oxygen continue oral steroids, and albuterol at home. CXR from yesterday shows significant improvement from admission CXR. Pt never needed oxygen, pt is stable for discharge. (2) Ischemic cardiomyopathy: Code(s): I25.5 - Ischemic cardiomyopathy Status: Acute Assessment and Plan: Continue home meds. Stable (3) Chronic atrial fibrillation: Onset Date: 03/08/19 Code(s): I48.20 - Chronic atrial fibrillation, unspecified Status: Acute Assessment and Plan: Rate controlled. Not on anticoagulation (4) Chronic diastolic heart failure with preserved ejection fraction: Code(s): I50.32 - Chronic diastolic (congestive) heart failure Status: Acute Assessment and Plan: Stable (5) Chronic gout, unspecified, without tophus (tophi): Code(s): M1A.9XX0 - Chronic gout, unspecified, without tophus (tophi) Status: Chronic Assessment and Plan: Stable (6) Chronic kidney disease, stage 3 (moderate): Onset Date: 03/08/19 Code(s): N18.3 - Chronic kidney disease, stage 3 (moderate) Status: Chronic Assessment and Plan: Creat is 1.7 today (7) JACK (acute kidney injury): Code(s): N17.9 - Acute kidney failure, unspecified Status: Resolved Assessment and Plan: Creat is improved from fluid hydration DS: Summary Time Spent with Patient Time attestation: Total time spent providing and/or coordinating discharge services:40 minutes on day of discharge Exam Narrative: Exam Narrative: pleasant man elderly, look unwell, mild cough, on RA Const: Orientation/consciousness: patient oriented x3 Eyes: Pupils: Equal, round and reactive pupils present Resp: Effort & Inspection: normal respiratory effort GI: Inspection: normal to inspection Skin: General skin exam: normal color Lesions: no lesions Rashes: no rashes Wounds: no wounds Neuro: General: patient oriented x3 and CN's II-XI intact bilaterally Cranial nerves: Yes CN's II-XII intact bilaterally and Yes Equal, round and reactive pupils present Cognition (Neuro): normal cognition Speech: normal speech Gait exam (Neuro): Normal gait present Motor exam (neuro): 5/5 motor strength present throughout Extrem: General: normal to inspection, full ROM and no pedal edema DS: Data Data Completed and Pending Labs on day of discharge: Labs from last 24 hours 07/20/20 07/20/20 07/20/20 11:53 08:06 06:07 Sodium 139 Potassium 5.1 H Chloride 111 H Carbon Dioxide 19 L Anion Gap 9 BUN 39 H Creatinine 1.70 H Estim Creat Clear Calc 32 Estimated GFR 39 L Glucose 134 H POC Capillary Glucose 171 H 110 Calcium 8.6 ALT 23 07/20/20 07/19/20 07/19/20 06:07 20:59 17:48 Sodium Potassium Chloride Carbon Dioxide Anion Gap BUN Creatinine Estim Creat Clear Calc Estimated GFR Glucose POC Capillary Glucose 206 H 180 H Calcium ALT Cancelled 07/19/20 07:56 Sodium Potassium Chloride Carbon Dioxide Anion Gap BUN Creatinine Estim Creat Clear Calc Estimated GFR Glucose POC Capillary Glucose 119 H Calcium ALT Discharge Plan Discharge Attending physician on discharge: Debra Montalvo Discharging Clinician: Debra Montalvo Anticipated Discharge Date/Time: 07/20/20 16:00 Patient Disposition: Home, Self-
--- NOTE | 2020-07-20 15:54 | PC.NURSE ---
Pt has been discharged. Pt has had IV removed, and discharge paperwork reviewed. Opportunity for questions provided. Pt exhibited good understanding of discharge instructions. Pt was assisted to the front of the building by staff.
== END 2020-07-20 16:08 | disposition home or self-care (01) | DRG 177 ==
LOC: ANHED 18:41 → ANH3MEDSUR 20:28
PROVIDERS: Admitting Provider Internal Medicine; Emergency Provider Emergency Medicine; PCP Internal Medicine; Visit Provider Family Medicine
DX: U07.1 COVID-19 (principal); J12.89 Other viral pneumonia; N17.9 Acute kidney failure, unspecified; I13.0 Hypertensive heart and chronic kidney disease with heart failure and stage 1 through stage 4 chronic kidney disease, or unspecified chronic kidney disease; I50.32 Chronic diastolic (congestive) heart failure; I48.20 Chronic atrial fibrillation, unspecified; I25.10 Atherosclerotic heart disease of native coronary artery without angina pectoris; N18.30 Chronic kidney disease, stage 3 unspecified; M10.9 Gout, unspecified
CPT/HCPCS: 36415; 36600; 71045; 80048; 80053; 82805; 83036; 84460; 85025; 85027; 93005; 96360; 97110; 97116; 97161; 97166; 97530; 99285; A9270; G0378; J1100; J1650; J1815; J7030; J8540

== ENCOUNTER 2020-09-03 08:52 | Outpatient (CLI) | payer MEDICARE, OTHER, SELFPAY ==
--- NOTE | ~2020-09-03 | MR_ITS ---
EXAMINATION: MR shoulder RT wo con DATE: 09/03/2020 10:11 INDICATION: Right shoulder derangement presenting with right shoulder pain. TECHNIQUE: Magnetic resonance imaging (MRI) of the right shoulder was performed without intravenous c ontrast. Sequences included axial PD-weighted FS FSE, coronal oblique PD-weighted FS FSE, coronal obl ique T2-weighted FS FSE, sagittal PD-weighted FS FSE, and sagittal T1-weighted SE. COMPARISON: 04/20/2019 FINDINGS: Coracoacromial arch: The acromion undersurface is curved in morphology (type II). The coracoacromial ligament is normal. S evere acromioclavicular osteoarthritis. Rotator cuff: Moderate supraspinatus and severe infraspinatus tendinopathy without discrete tear. The teres minor t endon is normal. Mild subscapularis tendinopathy. No interval change in a complete tear involving the cephalad two thirds of the lesser tuberosity footplate of the subscapularis tendon. The bursal side of the tendon remains intact and contiguous with the transverse humeral ligament. The caudal third of the subscapularis tendon as well as its muscular attachments remain intact. Interval development of mild atrophy without fatty replacement of the subscapularis muscle belly. Biceps tendon, glenoid labrum and glenohumeral cartilage: Complete tear versus tiny none meeting of the long head of the biceps tendon with the tear/tenotomy m argin retracted to just inferior to the intertubercular groove. Glenoid humeral cartilage remains rel atively preserved. Again seen is a linear tear at the 9-10:00 position of the posterior labrum. There has been progression of the irregular degenerative tearing of the superior to posterior superior gle noid labrum. Fluid: Decrease in size of a now small glenohumeral joint effusion. No loose osteochondral bodies. Persisten t mild increased fluid signal in the subacromial/subdeltoid bursa consistent with mild bursitis. Bones: Bone alignment is normal. No fracture or pathologic marrow replacing process. Kensinger mild hypertro phic change at the lesser tuberosity. IMPRESSION: 1. No interval change in appearance of a tear involving the cephalad two thirds of the lesser tuberos ity footplate of the subscapularis tendon. Per provided history there has been prior rotator cuff rep air suggesting recurrence although no definitive postoperative changes are seen at the lesser tuberos ity along the subscapularis tendon. Correlate with details of surgical history. 2. Full-thickness tear versus tenotomy of the intra-articular long head biceps tendon. Correlate with surgical history. 3. Tear at the posterior glenoid labrum with progression of more irregular degenerative tearing of th e superior to posterior superior labrum. 4. Severe acromioclavicular osteoarthritis with mild underlying subacromial/subdeltoid bursitis. 5. Decreased now small glenohumeral joint effusion. Reviewed, dictated and finalized at location A. [employer] [employer] IMPRESSION: 1. No interval change in appearance of a tear involving the cephalad two thirds of the lesser tuberosity footplate of the subscapularis tendon. Per provided h istory there has been prior rotator cuff repair suggesting recurrence although no definitive postoperative changes are seen at the lesser tuberosity along the subscapularis tendon. Correlate with details of surgical history. 2. Full-thickness tear versus tenotomy of the intra-articular long head biceps tendon. Correlate with surgical history. 3. Tear at the posterior glenoid labrum with progression of more irregular dege nerative tearing of the superior to posterior superior labrum. 4. Severe acromioclavicular osteoarthritis with mild underlying subacromial/sub deltoid bursitis. 5. Decreased now small glenohumeral joint effusion.
== END 2020-09-03 08:53 | disposition home or self-care (01) ==
LOC: ANHIMG 08:55
PROVIDERS: PCP Internal Medicine; Visit Provider Internal Medicine
DX: M24.811 Other specific joint derangements of right shoulder, not elsewhere classified (principal); M75.111 Incomplete rotator cuff tear or rupture of right shoulder, not specified as traumatic; M19.011 Primary osteoarthritis, right shoulder; S43.431A Superior glenoid labrum lesion of right shoulder, initial encounter; X58.XXXA Exposure to other specified factors, initial encounter
CPT/HCPCS: 73221

== ENCOUNTER 2020-10-27 12:57 | Inpatient (IN) | payer MEDICARE, OTHER, SELFPAY ==
[2020-10-27] VITALS (13 sets, daily range): BP systolic 113–141; BP diastolic 64–84; PULSE 101–127; RESP 16–24; TEMP 36.3–37.3; O2SAT 94–98; BMI 26.2
--- NOTE | ~2020-10-27 | XR_ITS ---
EXAMINATION: XR chest 1V portable DATE: 10/27/2020 13:35 INDICATION: Fever and cough. TECHNIQUE: A single frontal view of the chest was obtained. COMPARISON: Chest single view 07/19/2020, chest CT 02/22/2019 FINDINGS: There is mild atelectasis in right mid and lower lung zones. No pleural effusion or pneumot horax. The heart size is normal. Median sternotomy wires and mediastinal surgical clips are seen, lik alexsander from prior coronary artery bypass grafting. There is an electronic implant in left chest wall. IMPRESSION: 1. Mild atelectasis in right mid and lower lung zones. Reviewed, dictated and finalized at location A. TBAND SEPARATOR
--- NOTE | ~2020-10-27 | CT_ITS ---
EXAMINATION: CTA chest PE protocol DATE: 10/27/2020 14:52 QUALITY ASSURANCE GROUP LEADER INDICATION: Shortness of breath TECHNIQUE: Computed tomographic angiography (CTA) of the chest was performed with 100 mL Omnipaque-35 0 intravenous contrast. The dose-length product was 492.49 mGy-cm. Maximum intensity projection 3D-re constructions of the aorta and other arteries were constructed by the technologist on a separate work station. Automated exposure control and iterative reconstruction technique were employed. COMPARISON: CT dated 02/22/2019. FINDINGS: Study is technically adequate for evaluation of the main and central pulmonary arteries. Pe ripheral pulmonary artery evaluation limited by motion artifact. No large central pulmonary embolism is identified. No significant pleural or pericardial effusion. Cardiomegaly. There is atherosclerosis . Status post median sternotomy for CABG. No evidence for aortic dissection. There has been developme nt of coarse peripheral interstitial infiltrates with subpleural lines and areas of interlobular sept al thickening, suspicious for chronic fibrosis. No endobronchial lesions. No thoracic lymphadenopathy . 12 mm cystic lesion in the spleen, likely benign. Otherwise, the visualized aspects of the upper ab domen are unremarkable. IMPRESSION: 1. No evidence for large central pulmonary embolism. Evaluation of peripheral pulmonary arteries limi carlin by motion artifact. 2: Interval development of peripheral interstitial lung disease, likely developing pulmonary fibrosi s. Reviewed, dictated and finalized at location A. ITY ASSURANCE GROUP LEADER IMPRESSION: 1. No evidence for large central pulmonary embolism. Evaluation of peripheral p ulmonary arteries limited by motion artifact. 2: Interval development of peripheral interstitial lung disease, likely develo ping pulmonary fibrosis.
[2020-10-27 13:21] LABS: Basophils Percent Auto 0.2 % (0.2-1.2); Eosinophils Absolute Auto 0.6 K/mm3 (0-0.3); Eosinophils Percent Auto 12.8 % (0-4.4); Hematocrit 38.9 % (42.0-52.0); Hemoglobin 12.7 g/dL (14.0-18.0); Immature Granulocyte Absolute 0.01 K/mm3 (0.00-0.031); Immature Granulocyte Percent A 0.2 % (0-0.5); Lymphocytes Absolute Auto 1.36 K/mm3 (0.9-3.2); Lymphocytes Percent Auto 30.4 % (18.3-44.2); Mean Corpuscular HGB Conc 32.6 g/dl (32-36); Mean Corpuscular Volume 91.7 fl (80-100); Mean Platelet Volume 9.4 fl (7.4-10.4); Monocytes Absolute Auto 0.7 K/mm3 (0.1-0.6); Monocytes Percent Auto 16.1 % (2.6-8.5); Neutrophils Absolute Auto 1.8 K/mm3 (1.3-6.7); Neutrophils Percent Auto 40.3 % (45.5-73.1); Platelet Count Result 253 k/mm3 (150-375); Red Blood Count 4.24 M/mm3 (4.6-6.20); Red Cell Distribution Width 14.9 % (11.5-14.5); White Blood Count 4.5 K/mm3 (4.5-10.0)
--- NOTE | 2020-10-27 13:27 | ED.URI ---
HPI - URI/Sore Throat General Chief Complaint: Upper Respiratory Infection Stated Complaint: Fever, Cough Time Seen by Provider: 10/27/20 13:17 History of Present Illness HPI Narrative: 80 yo male w/ h/o CAD, COVID-19 presents to the ED for fever and cough. He reports that he never fully recovered after COVID-19 more than 1 month ago. He continued to cough ever since. Then over the past 48 hours the cough has gotten worse. He developed a fever yesterday. And today he had a few brief episodes of left sided chest pain. He reports that he has chronic SOB, not sure if it is any worse. Related Data Home Medications Medication Instructions Recorded Confirmed albuterol sulfate 90 mcg/actuation 1 inhalation INHALATION Q4H PRN 07/20/19 10/27/20 aerosol inhaler aspirin 81 mg tablet,delayed 81 mg PO DAILY 07/20/19 10/27/20 release azelastine 137 mcg (0.1 %) nasal 137 mcg NASAL Q12H 07/20/19 10/27/20 spray aerosol febuxostat 40 mg tablet 40 mg PO DAILY 07/20/19 10/27/20 nitroglycerin 0.4 mg sublingual 0.4 mg SUBLINGUAL Q5M PRN 07/20/19 10/27/20 tablet pantoprazole 40 mg tablet,delayed 40 mg PO QAM 07/20/19 10/27/20 release pregabalin 75 mg capsule 75 mg PO BID 07/20/19 10/27/20 polymyxin B sulfate 10,000 2 drop OPHTHALMIC (EYE) ONCE ml 12/13/19 10/27/20 unit-trimethoprim 1 mg/mL eye drops ltkivbogukfjf-ksenoppr-dzlaijx 500 1 tablet PO .at bedtime PRN tablet 02/08/20 10/27/20 mg-25 mg-15 mg tablet PreserVision AREDS-2 1 tablet PO BID 05/25/20 10/27/20 acetaminophen 500 mg PO DAILY 05/25/20 10/27/20 insulin aspart U-100 [Novolog 1 sliding scale dose SUBCUT 05/25/20 10/27/20 U-100 Insulin aspart] USEASDIRECTD insulin glargine 34 unit SUBCUT HS 05/25/20 10/27/20 vitamin B complex [B 1 tablet PO DAILY 05/25/20 10/27/20 Complex-Vitamin B12] triamcinolone acetonide 1 applic TOPICAL BID PRN 07/17/20 10/27/20 midodrine 5 mg tablet 10 mg PO BID tablet 08/20/20 10/27/20 benzonatate 100 mg PO TID PRN 10/27/20 10/27/20 clopidogrel 75 mg PO DAILY 10/27/20 10/27/20 levocetirizine 5 mg PO HS 10/27/20 10/27/20 metoprolol succinate 25 mg PO DAILY 10/27/20 10/27/20 tamsulosin 0.4 mg PO HS 10/27/20 10/27/20 Allergies Allergy/AdvReac Type Severity Reaction Status Date / Time Yqmmxdb-Gay-Buf Reductase Allergy Unknown Muscle Verified 10/27/20 13:12 Inhibitor Twitching zolpidem Allergy Unknown Mental Verified 10/27/20 13:12 Status change Review of Systems Constitutional: Constitutional: Reports chills, Reports fatigue and Reports fever(s) Eyes: Eyes: Reports no additional eye complaints ENT: Reports system reviewed and no additional complaints, except as documented Cardiovascular: Cardiovascular: Reports chest pain Respiratory: Respiratory: Reports chest congestion, Reports cough and Reports dyspnea Gastrointestinal: Gastrointestinal: Denies abdominal pain Genitourinary: Genitourinary: Reports no additional male genitourinary complaints Neurologic: Reports system reviewed and no additional complaints, except as documented [facility] Past Medical History Medical History Adrenal insufficiency ([place]'s disease) JACK (acute kidney injury) Carpal tunnel syndrome on both sides Essential (primary) hypertension Heart attack 2011 History of left heart catheterization 2011,2017,2019 History of stroke 2019 Hx of halfway use of blood thinners Hypothyroidism (acquired) Left carpal tunnel syndrome Numbness of left hand Numbness of right hand Right carpal tunnel syndrome Torn rotator cuff Vitamin D deficiency, unspecified Weakness of left hand Weakness of right hand Surgical History Surgical History History of appendectomy 1963 History of back surgery 1986, 1990 History of heart bypass surgery Triple bypass 2018 History of throat surgery History of tonsillectomy Status post trigger finger r
[2020-10-27 13:33] LABS: Anion Gap 9 mmol/L (8-16); Blood Urea Nitrogen 19 mg/dL (9-20); Calcium 9.3 mg/dL (8.4-10.2); Carbon Dioxide 24 mmol/L (22-30); Chloride 104 mmol/L (98-107); Estimated CRCL calculation 29 ml/min; Estimated Glomerular Filt Rate 34; Glucose 153 mg/dL (75-110); Potassium 4.5 mmol/L (3.4-5.0); Sodium 137 mmol/L (137-145)
[2020-10-27] MEDS: ALBUTEROL SULFATE NEB 2.5 MG/0.5 ML INH 5 MG INHALATION (13:37)
[2020-10-27] MEDS: IPRATROPIUM BR 0.02% INH SOLN 0.5 MG/2.5 ML VIAL INHALATION (13:37)
[2020-10-27 13:48] LABS: Alanine Aminotransferase 16 U/L (4-50); Albumin Level 4.5 g/dL (3.5-5.1); Alkaline Phosphatase 114 U/L (38-126); Aspartate Amino Transferase 25 U/L (17-59); Bilirubin,Total 0.5 mg/dL (0.2-1.3)
[2020-10-27 13:49] LABS: CRP 2.5 mg/dL (<1.0)
[2020-10-27 13:51] LABS: Prothrombin Time 13.7 Seconds (11.1-14.7)
[2020-10-27 13:51] LABS: Lactic Acid Reflex 2.4 mmol/L (0.7-2.1)
[2020-10-27 13:52] LABS: Partial Thromboplastin Time 37.6 SECONDS (22.3-36.8)
[2020-10-27 14:04] LABS: NT Pro B Type Natriuretic Pept 349 PG/ML (5-100); Troponin I 0.053 ng/mL (0.000-0.034)
[2020-10-27] MEDS: SODIUM CHLORIDE 0.9% IV 500 ML 999 ML IV CONT (14:18)
[2020-10-27] MEDS: METOPROLOL TARTRATE INJ 5 MG/5 ML VIAL IV PUSH (16:13)
[2020-10-27 16:38] LABS: Reflex Lactic Acid Yes or No Add Lactic
[2020-10-27 16:56] LABS: Troponin I 0.054 ng/mL (0.000-0.034)
--- NOTE | 2020-10-27 17:13 | ADMGEN ---
This patient, Freddy Ferguson, was admitted to IMU Room 204-01. Patient/family oriented to hospital policies and general routines including ID bracelet, bed and alarms, visiting hours, pain management, procedures, bathroom and other care routines, personal items, smoking policy, room service/diet, and visiting hours. Information on how to activate the Rapid Response Team has been discussed. Patient/Family are encouraged to report perceived risks to care and to ask questions if they do not understand what they are told or what they should do.
[2020-10-27 17:31] LABS: Lactic Acid 1.5 mmol/L (0.7-2.1)
--- NOTE | 2020-10-27 20:04 | ECG_ITS ---
Measurements Intervals [place] Rate: 113 P: 18 MN: 196 QRS: -55 QRSD: 81 T: 20 QT: 322 QTc: 442 Interpretive Statements SINUS TACHYCARDIA LEFT AXIS DEVIATION VOLTAGE CRITERIA FOR LVH POOR R WAVE PROGRESSION, ANTERIOR LEADS BORDERLINE T WAVE ABNORMALITY- INFERIOR LEADS BASELINE ARTIFACT- II, III, AVR, AVL, AVF, V1 ABNORMAL ECG Electronically Signed On 10-31-2020 13:12:44 CDT by James Sanchez D.O.
[2020-10-27 20:25] LABS: Troponin I 0.067 ng/mL (0.000-0.034)
--- NOTE | 2020-10-27 20:34 | PM.IMHP ---
H&P: HPI History of Present Illness Date/Time: 10/27/20 20:34 Chief Complaint: Chest pain Narrative: This is a pleasant 80 year old male with known COPD, CAD+ s/p CABG x3, s/p multiple stents placed who presented to the hospital with a complaint of ongoing intermitted chest pain that he has had for several weeks. The patient has had a nonproductive hacking cough which he says has been worsening since he had COVID pneumonia 3 months ago. His chest pain has been very bothersome over the past few days and typically occurs when he is coughing. He describes it as across the front of his chest and radiating up towards his shoulders. His chest pain normally does not last long. Associated symptoms include diaphoresis and nausea. He denies any significant shortness of breath, palpitations, fevers, chills, or dizziness. The patient was evaluated in the ER today and found to have a mildly elevated troponin of 0.053. CTA Chest was performed which did not demonstrate any pulmonary embolism but did show interval development of peripheral interstitial lung disease, likely developing pulmonary fibrosis. Cardiology was consulted by ER provider. The patient was admitted to the hospital for chest pain rule out. No other complaints. Review of Systems Review of Systems: All systems reviewed & are unremarkable except as noted in HPI and below PMFSH Past Medical History Medical History Adrenal insufficiency ([place]'s disease) JACK (acute kidney injury) Carpal tunnel syndrome on both sides Essential (primary) hypertension Heart attack 2012 History of left heart catheterization 2011,2018,2019 History of stroke 2019 Hx of nursing home use of blood thinners Hypothyroidism (acquired) Left carpal tunnel syndrome Numbness of left hand Numbness of right hand Right carpal tunnel syndrome Torn rotator cuff Vitamin D deficiency, unspecified Weakness of left hand Weakness of right hand Surgical History Surgical History History of appendectomy 1963 History of back surgery 1986, 1990 History of heart bypass surgery Triple bypass 2018 History of throat surgery History of tonsillectomy Status post trigger finger release Family History Family History Mother Family history of diabetes mellitus in first degree relative Diabetes mellitus Kidney disease Father Family history of congestive heart failure Macular degeneration Sibling Macular degeneration Social History Social History Smoking status: Never smoker Second hand tobacco smoke exposure: No Alcohol intake: current Drinks per week: 1 Substance use: never Substance use type: does not use Gender identity (if verbalized by the patient): Male Spiritual care concerns: No Meds Home Medications and Allergies Home Medications Medication Instructions Recorded Confirmed Type albuterol sulfate 90 mcg/actuation 1 inhalation INHALATION Q4H PRN 07/20/19 10/27/20 History aerosol inhaler aspirin 81 mg tablet,delayed 81 mg PO DAILY 07/20/19 10/27/20 History release azelastine 137 mcg (0.1 %) nasal 137 mcg NASAL Q12H 07/20/19 10/27/20 History spray aerosol febuxostat 40 mg tablet 40 mg PO DAILY 07/20/19 10/27/20 History nitroglycerin 0.4 mg sublingual 0.4 mg SUBLINGUAL Q5M PRN 07/20/19 10/27/20 History tablet pantoprazole 40 mg tablet,delayed 40 mg PO QAM 07/20/19 10/27/20 History release pregabalin 75 mg capsule 75 mg PO BID 07/20/19 10/27/20 History polyethylene glycol 3350 17 gram 17 gm PO DAILY #1530 each 09/05/19 10/27/20 Rx oral powder packet polymyxin B sulfate 10,000 2 drop OPHTHALMIC (EYE) ONCE ml 12/13/19 10/27/20 History unit-trimethoprim 1 mg/mL eye drops cyanocobalamin (vitamin B-12) 3,000 mcg PO DAILY 90 Days #90 cap 05/0
[2020-10-27] MEDS: guaiFENesin/DEXTROMETHORPHAN 10 ML UDC 5 ML PO (20:54)
[2020-10-27 21:06] LABS: Glucose Point of Care 140 (65-105)
[2020-10-27] MEDS: INSULIN GLARGINE (*BKC) 100 UNITS/ML 34 UNITS SUB-Q (21:55)
[2020-10-27] MEDS: AZELASTINE HCL NASAL 0.1% 137 MCG/SPR 30 ML BTL 1 SPRAY NASAL (21:56)
[2020-10-27] MEDS: TAMSULOSIN HCL 0.4 MG CAPSULE PO (21:56)
[2020-10-27] MEDS: PREGABALIN (*CRX) 75 MG CAPSULE PO (23:49)
[2020-10-28] VITALS (24 sets, daily range): BP systolic 123–144; BP diastolic 68–80; PULSE 99–134; RESP 18–22; TEMP 36.4–37.4; O2SAT 93–100
--- NOTE | 2020-10-28 03:06 | PC.NURSE ---
Daylight Savings Time For Daylight Savings Time Ending in the Fall - Clocks are moved back. For Daylight Savings Time Beginning in the Spring - Clocks are moved ahead. For [facility], the time of change occurs at 0200 hrs. Time is taken from the doll repairer. This entry on the patient's chart recognizes the change in time reflected during documentation. Example: 2 entries for vital signs may be charted for 0200 hrs.
[2020-10-28] MEDS: guaiFENesin/DEXTROMETHORPHAN 10 ML UDC 5 ML PO ×4 (04:22→21:11)
[2020-10-28 04:58] LABS: Basophils Percent Auto 0.2 % (0.2-1.2); Eosinophils Absolute Auto 0.5 K/mm3 (0-0.3); Eosinophils Percent Auto 10.8 % (0-4.4); Hematocrit 35.3 % (42.0-52.0); Hemoglobin 11.5 g/dL (14.0-18.0); Immature Granulocyte Absolute 0.01 K/mm3 (0.00-0.031); Immature Granulocyte Percent A 0.2 % (0-0.5); Lymphocytes Absolute Auto 1.95 K/mm3 (0.9-3.2); Mean Corpuscular HGB Conc 32.6 g/dl (32-36); Mean Corpuscular Hemoglobin 30.1 pg (26-34); Mean Corpuscular Volume 92.4 fl (80-100); Mean Platelet Volume 9.4 fl (7.4-10.4); Monocytes Absolute Auto 0.9 K/mm3 (0.1-0.6); Monocytes Percent Auto 18.8 % (2.6-8.5); Neutrophils Absolute Auto 1.2 K/mm3 (1.3-6.7); Platelet Count Result 211 k/mm3 (150-375); Red Blood Count 3.82 M/mm3 (4.6-6.20); Red Cell Distribution Width 14.9 % (11.5-14.5); White Blood Count 4.5 K/mm3 (4.5-10.0)
[2020-10-28 05:13] LABS: Anion Gap 11 mmol/L (8-16); Blood Urea Nitrogen 17 mg/dL (9-20); Calcium 9.3 mg/dL (8.4-10.2); Carbon Dioxide 23 mmol/L (22-30); Chloride 105 mmol/L (98-107); Estimated CRCL calculation 31 ml/min; Estimated Glomerular Filt Rate 36; Glucose 112 mg/dL (75-110); Magnesium 1.9 mg/dL (1.6-2.3); Potassium 3.9 mmol/L (3.4-5.0); Sodium 139 mmol/L (137-145)
[2020-10-28 05:35] LABS: Troponin I 0.068 ng/mL (0.000-0.034)
[2020-10-28] MEDS: LEVOTHYROXINE SODIUM 25 MCG TABLET PO (06:01)
[2020-10-28 08:05] LABS: Glucose Point of Care 118 (65-105)
[2020-10-28] MEDS: VITAMIN B COMPLEX CAPSULE 1 CAP PO (08:38)
[2020-10-28] MEDS: POLYMYXIN/TRIMETHOPRIM OPHTH 10 ML DROPS 1 DROP EACH EYE (08:38)
[2020-10-28] MEDS: PANTOPRAZOLE 40 MG TABLET PO (08:38)
[2020-10-28] MEDS: OPTI-GEN TAB 1 TABLET PO ×2 (08:38→16:35)
[2020-10-28] MEDS: polyethylene glycoL 3350 17 GM POWD.PACK PO (08:38)
[2020-10-28] MEDS: PREGABALIN (*CRX) 75 MG CAPSULE PO ×2 (08:38→16:34)
[2020-10-28] MEDS: MIDODRINE HCL 2.5 MG TABLET 10 MG PO ×2 (08:38→16:34)
[2020-10-28] MEDS: FEBUXOSTAT 40 MG TABLET PO (08:39)
[2020-10-28] MEDS: METOPROLOL SUCCINATE EXT REL 25 MG TABCR PO (08:39)
[2020-10-28] MEDS: LORATADINE 10 MG TABLET PO (08:39)
[2020-10-28] MEDS: CYANOCOBALAMIN 1,000 MCG TABLET 3000 MCG PO (08:40)
[2020-10-28] MEDS: AZELASTINE HCL NASAL 0.1% 137 MCG/SPR 30 ML BTL 1 SPRAY NASAL ×2 (08:40→21:06)
[2020-10-28] MEDS: CLOPIDOGREL BISULFATE 75 MG TABLET PO (08:40)
[2020-10-28] MEDS: ASPIRIN 81 MG ENTERIC TABLET PO (08:40)
[2020-10-28 12:30] LABS: Glucose Point of Care 125 (65-105)
--- NOTE | 2020-10-28 13:48 | PM.CNPUL ---
Assessment and Plan Assessment and plan (1) Pulmonary fibrosis: Code(s): J84.10 - Pulmonary fibrosis, unspecified Status: Acute Assessment and Plan: He has peripheral interstitial infiltrates and subpleural lines and interlobular septal thickening. This has occurred since 02/22/2019. He had COVID in June, which may be the cause for this finding. He does not have a known collagen vascular disease, and no recent exposure to a known environmental trigger, however there are many. He is not working, has been disabled since 1986. 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 Has not had chemotherapy. This is likely from COVID as a diagnosis of exclusion. We will check a collagen vascular panel and hypersensitivity panel to exclude causes of pulmonary fibrosis, plan on a PFT as an out patient and walk study prior to discharge. He is getting treated for CHF with diuresis. There is not consensus guideline for treatment of COVID pulmonary fibrosis at this time. He might be unfortunate to have survived COVID yet have one of its lingering side effects, pulmonary fibrosis. (2) History of COVID-19: Code(s): Z86.16 - Personal history of COVID-19 Status: Acute Assessment and Plan: June 2020 with admission here for 5 days, has not been back to normal since. He was able to walk, go up a flight of stairs, perform household activities prior to COVID. He will need PFT, home O2 evaluation and nocturnal assessment for O2 with sleep. History of Present Illness History of Present Illness Consult date: 10/28/20 Requesting physician: Gilles Travis MD Reason for consult: dyspnea Chief complaint: Chest Pain, Cough, SOB Narrative: NEW: Freddy Ferguson is an 80 year old man who had COVID in June after his grandson's wedding. He was really sick, spent 5 days in the hospital, and has had a dry cough and shortness of breath since then. His CTA chest showed no PE, however he has peripheral fibrosis in both bases. He has a long complex cardiac history, CABG x 3 in 2018, stents, He still has loss of smell. He is a nonsmoker. 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 He has nasal allergies, used Flonase. He has had significant sputum production for years without recurrent infections. Family: father smoked 40 years, at age 86 with emphysema and CHF. Brother : childhood asthma. Review of Systems Review of Systems: Narrative: No rashes, no change in nails recently. Has vertical ridges in nails and brittle nails for a few years. Constitutional: Constitutional: Reports fatigue, Reports fever(s), Reports lethargy, Denies weight gain and Denies weight loss Eyes: Eyes: Reports no additional eye complaints ENT: Denies dysphagia Respiratory: Respiratory: Denies change in phlegm color, Reports cough, Denies excessive phlegm production, Reports dyspnea, Reports dyspnea on exertion and Denies wheezing Gastrointestinal: Gastrointestinal: Denies abdominal pain and Denies constipation Genitourinary: Genitourinary: Reports no additional male genitourinary complaints Musculoskeletal: Musculoskeletal: Denies arthralgias, Denies joint swelling and Denies muscle weakness Integumentary/Breasts: Skin/Breast: Reports system reviewed and no additional complaints, except as docu Endocrine: Endocrine: Reports no additional endocrine complaints Allergic/Immu
--- NOTE | 2020-10-28 13:53 | PM.IMPN ---
Progress Note: A&P Assessment and Plan (1) Cough: Code(s): R05 - Cough Status: Acute Assessment and Plan: Patient with persistent cough after having Covid 19 in 07/06 Breathing treatments Pulmonology consult. (2) Chronic obstructive pulmonary disease, unspecified: Qualifiers: COPD type: unspecified COPD Qualified Code(s): J44.9 - Chronic obstructive pulmonary disease, unspecified Code(s): J44.9 - Chronic obstructive pulmonary disease, unspecified Status: Chronic Assessment and Plan: No wheezes Does not appear to be exacerbated (3) Elevated troponin: Code(s): R77.8 - Other specified abnormalities of plasma proteins Status: Acute Assessment and Plan: Continue to monitor Cardiology has been consulted. On Plavix and ASA (4) CAD (coronary artery disease): Qualifiers: Associated angina: with unspecified angina Coronary Disease-Associated Artery/Lesion type: bypass graft [place] vs. transplanted heart: [place] heart Qualified Code(s): I25.709 - Atherosclerosis of coronary artery bypass graft(s), unspecified, with unspecified angina pectoris Code(s): I25.10 - Atherosclerotic heart disease of [place] coronary artery without angina pectoris Status: Chronic Assessment and Plan: Elevated Trop likely to be due to type ii [place] Continue home meds. (5) Ischemic cardiomyopathy: Code(s): I25.5 - Ischemic cardiomyopathy Status: Chronic Assessment and Plan: Will obtain 2DECHO (6) Primary osteoarthritis of both shoulders: Code(s): M19.011 - Primary osteoarthritis, right shoulder; M19.012 - Primary osteoarthritis, left shoulder Status: Chronic Assessment and Plan: Tylenol as needed (7) Chronic diastolic heart failure with preserved ejection fraction: Code(s): I50.32 - Chronic diastolic (congestive) heart failure Status: Chronic Assessment and Plan: BNP minimally elevated. (8) Chronic kidney disease, stage 3 (moderate): Onset Date: 03/08/19 Qualifiers: Chronic kidney disease stage 3 subtype: stage 3b (GFR 30-44) Qualified Code(s): N18.32 - Chronic kidney disease, stage 3b Code(s): N18.3 - Chronic kidney disease, stage 3 (moderate) Status: Chronic Assessment and Plan: Continue to monitor (9) Gastro-esophageal reflux disease without esophagitis: Onset Date: 03/08/19 Code(s): K21.9 - Gastro-esophageal reflux disease without esophagitis Status: Chronic Assessment and Plan: PPI (10) Essential (primary) hypertension: Code(s): I10 - Essential (primary) hypertension Status: Chronic Assessment and Plan: Continue home meds. Subjective Date/time seen: 10/28/20 13:53 Patient states that he feels very fatigued even at rest and has a persistent cough ever since he had Covid. Review of Systems Review of Systems: Narrative: Fatigue, persistent cough, productive of scanty white sputum at times. Constitutional: Comments: no chills, no rigors, no fevers. Cardiovascular: Comments: chest pain at the level of the sternum xiphoid process. Respiratory: Comments: persistent cough, sob. Gastrointestinal: Comments: no n/v/abdominal pain. Musculoskeletal: Comments: shoulder pain. Integumentary/Breasts: Comments: no rashes. Neurologic: Comments: no sensory motor deficit Exam Narrative: Exam Narrative: Sitting in bed Const: General: comfortable, no acute distress, alert and awake Nutritional Appearance: thin Orientation/consciousness: patient oriented x3 HENMT: Head: normal to inspection and normocephalic Ears: hearing grossly normal bilaterally General nose exam: Normal external nose present Face and sinus: normal facial exam Eyes: General: appearance normal, both eyes and all related structures Pupils: Equal, round and reactive pupils present EOM: EOMs intact bilaterally Neck: Neck: no lympha
--- NOTE | 2020-10-28 14:02 | PM.CNCAR ---
Assessment and Plan Assessment and plan (1) Elevated troponin: Code(s): R77.8 - Other specified abnormalities of plasma proteins Status: Acute Assessment and Plan: Flat, indeterminate not secondary to acute coronary syndrome and/or plaque rupture. Demand ischemia secondary to underlying CAD, CKD, sinus tachycardia which is compensatory due to severe exertional dyspnea, intractable cough. 2D echo in a.m.. To assess LV function, chamber size, valve pathology pulmonary pressures. EF 60% on left heart catheterization June 2020. Twelve EKG sinus tachycardia without acute ischemic changes. Continue aspirin and clopidogrel. Patient is intolerant to all statins attempted as well as Zetia. Unable to afford PCSK9 inhibitor therapy. (2) Cough: Code(s): R05 - Cough Status: Acute Assessment and Plan: Likely sequelae from COVID-19 in June. Evidence of developing pulmonary fibrosis on CT angiogram which is highly concerning. Patient does not appear to be in decompensated heart failure. (3) ALDRIDGE (dyspnea on exertion): Code(s): R06.00 - Dyspnea, unspecified Status: Acute Assessment and Plan: Severe, progressive interfering with quality of life. Patient is not in decompensated heart failure. Pulmonary consultation strongly advised. Unfortunately, unless another explanation is found I am concerned this is a progressive complication from COVID-19. Evaluation for systemic inflammatory condition and/or mixed connective tissue disease reasonable such as sarcoidosis. Continue to KHAI treatment with CPAP. (4) Pulmonary fibrosis: Code(s): J84.10 - Pulmonary fibrosis, unspecified Status: Acute Assessment and Plan: CT angiogram reveals interval development of pulmonary fibrosis likely explanation for shortness of breath, cough, and chest pain. Most likely explanation is sequelae from COVID-19 pneumonia. (5) CAD (coronary artery disease): Qualifiers: Coronary Disease-Associated Artery/Lesion type: bypass graft [place] vs. transplanted heart: [place] heart Associated angina: with unspecified angina Qualified Code(s): I25.709 - Atherosclerosis of coronary artery bypass graft(s), unspecified, with unspecified angina pectoris Code(s): I25.10 - Atherosclerotic heart disease of [place] coronary artery without angina pectoris Status: Chronic Assessment and Plan: As above, continue current medical therapy with aspirin, clopidogrel, beta-neris as tolerated. Limited medical options given history. Current chest pain is atypical, noncardiac in different from his historical angina. Compensatory sinus tachycardia. No evidence of SVT and/o atrial fibrillation to date. Continue telemetry. Complicated history with multiple previously placed stents, NSTEMI, CABG 3 vessel January 2018 MOHAMUD to LAD, SVG to OM1, SVG to OM3, history of previously placed stents in LAD, diagonal branch, left circumflex with most recent 2.75 x 38 mm and 2.5 by 12 mm everolimus drug-eluting stent overlapping mid to distal segment of proximal and mid to distal SVG to OM3, 3.0 x 24 mm everolimus drug-eluting stent proximal segment of the graft 06/21/2020. -residual coronary anatomy at that time 100% InStent restenoses mid segment LAD, patent MOHAMUD to LAD, circumflex multiple high-grade stenosis 0 in 3 distal 90% stenosis, RCA nondominant small vessel with moderate to severe diffuse disease, EF 60% bypass grafts patent with exception of SVG to OM3 with 70-80% diffuse stenosis mid to distal segment. Must remain on dual antiplatelet therapy given recent drug-eluting stent implantation x3 06/21/2028 [facility]. (6) Orthostatic hypotension: Code(s): I95.1 - Orthostatic hypotension Status: Acute Assessment and Plan: Secondary to autonomic dysfunction related to diabetes mellitus. Continue midodrine. Monitor volume status. If not taking oral intake adequately IV flui
--- NOTE | 2020-10-28 14:07 | ECG_ITS ---
Measurements Intervals [place] Rate: 106 P: 24 NC: 214 QRS: -59 QRSD: 88 T: 29 QT: 330 QTc: 439 Interpretive Statements SINUS TACHYCARDIA WITH FIRST DEGREE AV BLOCK LEFT ANTERIOR FASCICULAR BLOCK VOLTAGE CRITERIA FOR LVH POOR R WAVE PROGRESSION, ANTERIOR LEADS BASELINE ARTIFACT- II, III, AVR, AVL, AVF, V1 ABNORMAL ECG Electronically Signed On 10-28-2020 17:21:07 CDT by James Sanchez D.O.
[2020-10-28 17:02] LABS: Glucose Point of Care 148 (65-105)
[2020-10-28 20:58] LABS: Glucose Point of Care 147 (65-105)
[2020-10-28] MEDS: TAMSULOSIN HCL 0.4 MG CAPSULE PO (21:06)
[2020-10-28] MEDS: INSULIN GLARGINE (*BKC) 100 UNITS/ML 34 UNITS SUB-Q (21:06)
[2020-10-29] VITALS (31 sets, daily range): BP systolic 89–165; BP diastolic 45–95; PULSE 92–137; RESP 18–21; TEMP 36.6–37.3; O2SAT 93–98; BMI 25.9
[2020-10-29] MEDS: LEVOTHYROXINE SODIUM 25 MCG TABLET PO (06:05)
[2020-10-29 07:36] LABS: Thyroid Stimulating Hormone Reflex 0.718 uIU/mL (0.465-4.68)
[2020-10-29] MEDS: CYANOCOBALAMIN 1,000 MCG TABLET 3000 MCG PO (08:10)
[2020-10-29] MEDS: PREGABALIN (*CRX) 75 MG CAPSULE PO ×2 (08:10→16:20)
[2020-10-29] MEDS: MIDODRINE HCL 2.5 MG TABLET 10 MG PO ×2 (08:10→16:20)
[2020-10-29] MEDS: METOPROLOL SUCCINATE EXT REL 25 MG TABCR PO (08:10)
[2020-10-29] MEDS: PANTOPRAZOLE 40 MG TABLET PO (08:10)
[2020-10-29 08:11] LABS: Glucose Point of Care 132 (65-105)
[2020-10-29] MEDS: FEBUXOSTAT 40 MG TABLET PO (08:11)
[2020-10-29] MEDS: VITAMIN B COMPLEX CAPSULE 1 CAP PO (08:11)
[2020-10-29] MEDS: OPTI-GEN TAB 1 TABLET PO ×2 (08:11→16:20)
[2020-10-29] MEDS: polyethylene glycoL 3350 17 GM POWD.PACK PO (08:11)
[2020-10-29] MEDS: CLOPIDOGREL BISULFATE 75 MG TABLET PO (08:11)
[2020-10-29] MEDS: LORATADINE 10 MG TABLET PO (08:11)
[2020-10-29] MEDS: AZELASTINE HCL NASAL 0.1% 137 MCG/SPR 30 ML BTL 1 SPRAY NASAL ×2 (08:11→20:40)
[2020-10-29] MEDS: ASPIRIN 81 MG ENTERIC TABLET PO (08:11)
[2020-10-29] MEDS: POLYMYXIN/TRIMETHOPRIM OPHTH 10 ML DROPS 1 DROP EACH EYE (08:11)
--- NOTE | 2020-10-29 10:00 | PM.PNCARD ---
Progress Note: A&P Assessment and Plan (1) Elevated troponin: Code(s): R77.8 - Other specified abnormalities of plasma proteins Status: Acute Assessment and Plan: Flat, indeterminate not secondary to acute coronary syndrome and/or plaque rupture. Demand ischemia secondary to underlying CAD, CKD, sinus tachycardia which is compensatory due to severe exertional dyspnea, intractable cough. 2D echo pending. Recommendations after review. Degree of his sinus tachycardia out of proportion to pulmonary findings, absence of hypoxia as he is not in decompensated heart failure or any acute distress. If significant LV dysfunction this would also explain persistent tachycardia on a compensatory basis. Otherwise appears likely explanation due to respiratory compensation, however, he is in no distress at rest, on room air and is not hypoxic. To assess LV function, chamber size, valve pathology pulmonary pressures. EF 60% on left heart catheterization June 2020. Continue aspirin and clopidogrel. Patient is intolerant to all statins attempted as well as Zetia. Unable to afford PCSK9 inhibitor therapy. (2) Cough: Code(s): R05 - Cough Status: Acute Assessment and Plan: Likely sequelae from COVID-19 in June. Evidence of developing pulmonary fibrosis on CT angiogram which is highly concerning. Severity of symptoms out of proportion to mild scarring noted on CT thus far in the absence of hypoxia. Greatly appreciated pulmonology involvement. Patient does not appear to be in decompensated heart failure. Certainly, if he has severe LV dysfunction and or LV enlargement may also contribute to cough. Caution about strong cough suppressants. I agree with pulmonology in that dextromethorphan and or benzonatate a strong was would be recommended. Avoid codeine based agents or other strong suppressants. (3) ALDRIDGE (dyspnea on exertion): Code(s): R06.00 - Dyspnea, unspecified Status: Acute Assessment and Plan: Severe, out of proportion to scarring particularly in the absence of hypoxia. Bronchodilator therapy per pulmonology. No clear treatment established in this regard. No clear evidence of decompensated heart failure. Collagen vascular disease and or systemic inflammatory condition workup underway although thought to be secondary to pulmonary fibrosis as a late complication from COVID-19. Continue to KHAI treatment with CPAP. Outpatient pulmonary function testing and close follow-up. (4) Pulmonary fibrosis: Code(s): J84.10 - Pulmonary fibrosis, unspecified Status: Acute Assessment and Plan: CT angiogram reveals interval development of pulmonary fibrosis, albeit mild in severity as above likely explanation for shortness of breath, cough, and chest pain. Most likely explanation is sequelae from COVID-19 pneumonia. Prognosis is guarded in this regard and uncertain. (5) CAD (coronary artery disease): Qualifiers: Coronary Disease-Associated Artery/Lesion type: bypass graft [place] vs. transplanted heart: [place] heart Associated angina: with unspecified angina Qualified Code(s): I25.709 - Atherosclerosis of coronary artery bypass graft(s), unspecified, with unspecified angina pectoris Code(s): I25.10 - Atherosclerotic heart disease of [place] coronary artery without angina pectoris Status: Chronic Assessment and Plan: As above, continue current medical therapy with aspirin, clopidogrel, beta-neris as tolerated. Limited medical options given history. Current chest pain is atypical, noncardiac in different from his historical angina. Compensatory sinus tachycardia. No evidence of SVT and/o atrial fibrillation to date. Continue telemetry. Complicated history with multiple previously placed stents, NSTEMI, CABG 3 vessel January 2018 MOHAMUD to LAD, SVG to OM1, SVG to OM3, history of previously placed stents in LAD, diagonal branch, left circumfl
[2020-10-29] MEDS: PERFLUTREN LIPID MICROSPHERES 1.5 ML VIAL DILUTED TO 10 ML TOTAL VOLUME IV PUSH (10:05)
--- NOTE | 2020-10-29 11:39 | PM.PNPUL ---
Progress Note: A&P Assessment and Plan (1) Pulmonary fibrosis: Code(s): J84.10 - Pulmonary fibrosis, unspecified Status: Acute Assessment and Plan: 10/28 He has peripheral interstitial infiltrates and subpleural lines and interlobular septal thickening. This has occurred since 02/22/2019. He had COVID in June, which may be the cause for this finding. He does not have a known collagen vascular disease, and no recent exposure to a known environmental trigger, however there are many. He is not working, has been disabled since 1986. 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 Has not had chemotherapy. This is likely from COVID as a diagnosis of exclusion. We will check a collagen vascular panel and hypersensitivity panel to exclude causes of pulmonary fibrosis, plan on a PFT as an out patient and walk study prior to discharge. He is getting treated for CHF with diuresis. There is not consensus guideline for treatment of COVID pulmonary fibrosis at this time. He might be unfortunate to have survived COVID yet have one of its lingering side effects, pulmonary fibrosis. 10/29 RA sats 97%. VIVIEN with autoantibody screen pending, hypersensitivity panel pending. (2) History of COVID-19: Code(s): Z86.16 - Personal history of COVID-19 Status: Acute Assessment and Plan: 30 June 2020 with admission here for 5 days, has not been back to normal since. He was able to walk, go up a flight of stairs, perform household activities prior to COVID. He will need PFT, home O2 evaluation and nocturnal assessment for O2 with sleep. 10/29 I will order apnea link tonight on RA and home O2 assessmen. Will change levalbuterol to SEVEN for now given tachycardia. Cough suppressants with robitussin DM and tessilon pearls. Subjective Date/time seen: 10/29/20 11:39 Interval history: 10/28 Narrative: NEW: Freddy Ferguson is an 80 year old man who had COVID in June after his grandson's wedding. He was really sick, spent 5 days in the hospital, and has had a dry cough and shortness of breath since then. His CTA chest showed no PE, however he has peripheral fibrosis in both bases. He has a long complex cardiac history, CABG x 3 in 2018, stents, He still has loss of smell. He is a nonsmoker. 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 He has nasal allergies, used Flonase. He has had significant sputum production for years without recurrent infections. Family: father smoked 40 years, at age 86 with emphysema and CHF. Brother : childhood asthma. 10/29 Patient states he is breathing at baseline from post his COVID penumonia. On room air with sats 97%. Some ALDRIDGE and cough persists. Remains tachycardiac. Cardiology following. I will DC levalbuterol as this can still cause tachycardia, for now and place on ipratroprium neb 0.5 neb as he states levabuterol helps him. Review of Systems Constitutional: Constitutional: Reports fatigue, Reports fever(s), Reports lethargy, Denies weight gain and Denies weight loss Eyes: Eyes: Reports no additional eye complaints ENT: Denies dysphagia Cardiovascular: Cardiovascular: Reports dyspnea and Reports dyspnea on exertion Respiratory: Respiratory: Denies change in phlegm color, Reports cough, Denies excessive phlegm production, Reports dyspnea, Reports dyspnea on exertion and Denies wheezing Gastrointestinal: Gastrointestinal: Denies abdominal pain, Denies constipation and Denies dysphagia Genitourinary: Genitourinary: Reports no additional male genitourinary complaints Musculoskeletal: Musculoskeleta
[2020-10-29 12:43] LABS: Glucose Point of Care 142 (65-105)
--- NOTE | 2020-10-29 12:45 | PCNSR ---
On 10/29/20, the student, Juliana Aldana, provided care and completed [facility] documentation on this patient. I have reviewed the student's documentation and agree with the findings.
[2020-10-29] MEDS: BENZONATATE 100 MG CAPSULE 200 MG PO ×2 (13:21→16:20)
--- NOTE | 2020-10-29 14:07 | ECHO_ITS ---
Patient Info Name: Freddy Ferguson Age: 80 years : 1940 Gender: Male Ht: 70 in Wt: 182 lbs BSA: 2.03 m2 HR: 119 bpm BP: 133 / 70 mmHg Heart Rhythm: Tachycardia Technical Quality: Good Exam Date: 10/29/2020 9:56 AM Exam Location: [facility] Pulmonary Patient Status: Inpatient Admit Date: 10/28/2020 Staff Ordering Physician: Socrates Spence MD Protective Services Social Worker: Luiz Marinelli, MARAL, RT Attending Provider: Manny Doran MD Referring Physician: Bebe DOTY; Exam Type: CA echo doppler color flow Study Info Indications Z98.61 - Coronary angioplasty status Summary 1. Left ventricular systolic function is hyperdynamic with ejection fraction estimated at 75%. 2. There is mildly increased left ventricular wall thickness. 3. The left ventricular diastolic function is grade I diastolic dysfunction. 4. There is no aortic valve stenosis. 5. There is mild mitral valve regurgitation. 6. Unable to estimate PA systolic pressure due to poor spectral resolution of tricuspid regurgitant jet velocity. 7. Normal inferior vena cava with >50% collapse upon inspiration consistent with normal right atrial pressure, 5 mmHg. 8. There is trivial pericardial effusion. Left Ventricle Left ventricular chamber dimension is normal. Left ventricular systolic function is hyperdynamic with ejection fraction estimated at 75%. There is mildly increased left ventricular wall thickness. The left ventricular diastolic function is grade I diastolic dysfunction. Right Ventricle Right ventricular chamber dimension is normal. Right ventricular systolic function is normal. Left Atria Left atrial chamber dimension is normal. Right Atria Right atrial chamber dimension is normal. Aortic Valve The aortic valve is probable trileaflet. There is no aortic valve stenosis. There is mild aortic valve calcification. Pulmonic Valve The pulmonic valve is not well visualized. Mitral Valve The mitral valve has normal leaflets. There is mild mitral valve regurgitation. The mitral valve annulus is moderately calcified. Tricuspid Valve The tricuspid valve leaflets are normal. There is trace tricuspid valve regurgitation. Unable to estimate PA systolic pressure due to poor spectral resolution of tricuspid regurgitant jet velocity. Pericardium/Pleural The pericardium appears normal. There is trivial pericardial effusion. Inferior Vena Cava Normal inferior vena cava with >50% collapse upon inspiration consistent with normal right atrial pressure, 5 mmHg. Aorta The aortic root size at the sinus of Valsalva is normal. There is mild aortic atherosclerosis. Left Ventricular Outflow Tract Name Value Normal LVOT 2D LVOT Diameter 2.1 cm LVOT Doppler LVOT Peak Gradient 4 mmHg LVOT Mean Gradient 2 mmHg LVOT VTI 14 cm LVOT VTI/AV VTI Ratio 1.0 LVOT Stroke Volume 49 ml LVOT CO 6.1 l/min LVOT CI 3.0 l/min/m2 Mi
[2020-10-29] MEDS: IPRATROPIUM BR 0.02% INH SOLN 0.5 MG/2.5 ML VIAL INHALATION ×2 (14:46→20:31)
--- NOTE | 2020-10-29 15:44 | PM.IMPN ---
Progress Note: A&P Assessment and Plan (1) Orthostatic hypotension: Code(s): I95.1 - Orthostatic hypotension Status: Acute Assessment and Plan: Likely secondary to patient's heart disease Of note patient is on Midrodine chronically (2) ALDRIDGE (dyspnea on exertion): Code(s): R06.00 - Dyspnea, unspecified Status: Acute Assessment and Plan: Likely secondary to pulmonary fibrosis and deconditioning also patient known to have severe cardiomyopathy with multiple stentes/CABG Continue home meds Recent L heart cath as well Appears to be compensated other that tachycardia and sob with exertion Planning fo outpatient work up Appreciate Cardiology note (3) Pulmonary fibrosis: Code(s): J84.10 - Pulmonary fibrosis, unspecified Status: Acute Assessment and Plan: Likely secondary to Covid 19 novel virus infection aftermath Supportive care Breathing treatments On room air Appreciate Pulmonology note (4) Essential (primary) hypertension: Code(s): I10 - Essential (primary) hypertension Status: Chronic Assessment and Plan: Continue home meds Continue to monitor (5) CAD (coronary artery disease): Qualifiers: Associated angina: with unspecified angina Coronary Disease-Associated Artery/Lesion type: bypass graft [place] vs. transplanted heart: [place] heart Qualified Code(s): I25.709 - Atherosclerosis of coronary artery bypass graft(s), unspecified, with unspecified angina pectoris Code(s): I25.10 - Atherosclerotic heart disease of [place] coronary artery without angina pectoris Status: Chronic Assessment and Plan: S/p multiple stents/CABG Continue home meds (6) Elevated troponin: Code(s): R77.8 - Other specified abnormalities of plasma proteins Status: Acute Assessment and Plan: Likely type ii [place] (7) Ischemic cardiomyopathy: Code(s): I25.5 - Ischemic cardiomyopathy Status: Chronic Assessment and Plan: Follow up in the outpatient setting. (8) Chronic atrial fibrillation: Onset Date: 03/08/19 Code(s): I48.20 - Chronic atrial fibrillation, unspecified Status: Chronic Assessment and Plan: On beta blockade however tachycardic will defer to Cardiology (9) Chronic kidney disease, stage 3 (moderate): Onset Date: 03/08/19 Qualifiers: Chronic kidney disease stage 3 subtype: stage 3b (GFR 30-44) Qualified Code(s): N18.32 - Chronic kidney disease, stage 3b Code(s): N18.3 - Chronic kidney disease, stage 3 (moderate) Status: Chronic Assessment and Plan: Continue to monitor (10) Gastro-esophageal reflux disease without esophagitis: Onset Date: 03/08/19 Code(s): K21.9 - Gastro-esophageal reflux disease without esophagitis Status: Chronic Assessment and Plan: PPI Subjective Date/time seen: 10/29/20 15:44 Patient states that he feels fine. Review of Systems Review of Systems: Narrative: sob mainly with activity Constitutional: Constitutional: Reports fatigue Comments: no fevers, no chills, no rigors. Cardiovascular: Comments: no chest pain, no leg swelling. Respiratory: Comments: sob, dry cough mostly Gastrointestinal: Comments: no n/v/abdominal pain. Musculoskeletal: Comments: no muscle aches, no joint pain. Integumentary/Breasts: Comments: no rashes Neurologic: Comments: no sensory motor deficit Exam Narrative: Exam Narrative: Lying in bed Const: General: no acute distress, well developed, alert and awake Nutritional Appearance: thin Orientation/consciousness: patient oriented x3 HENMT: Head: normocephalic Ears: hearing grossly normal bilaterally General nose exam: Normal external nose present Face and sinus: normal facial exam Mouth: Yes Normal oral and palatal mucosa present Eyes: General: appearance normal, both eyes and all related structures Pupils: Equal, round and reactive pupils
--- NOTE | 2020-10-29 15:51 | PCRCNOTE ---
Home Oxygen Evaluation RC: Home Oxygen (O2) Evaluation Start: 10/29/20 11:54 Freq: ONCE Status: Active Protocol: RPE Activity Type Activity Date Activity User E-Sign Co-Sign Detail Recorded Client Recorded Date Recorded By Document 10/29/20 15:40 [facility] [email or web address] 10/29/20 15:51 [facility] Document 10/29/20 15:41 T[facility] [email or web address] 10/29/20 15:51 [facility] Document 10/29/20 15:42 [place] [email or web address] 10/29/20 15:51 [facility] Document 10/29/20 15:43 TN [email or web address] 10/29/20 15:51 [facility] Document 10/29/20 15:45 TN [email or web address] 10/29/20 15:51 [facility] Document 10/29/20 15:47 TN [email or web address] 10/29/20 15:51 [facility] 10/29/20 10/29/20 10/29/20 15:40 15:41 15:42 Home O2 Evaluation Test Phase Resting Exercise Exercise Oxygen Delivery Room Air Room Air Room Air Pulse Oximetry (90-100 %) 98 97 96 Pulse Rate (60-100 beats/min) 121 H 126 H 125 H Activity Tolerance Good Good Good Rating of Perceived Dyspnea (PD) +1 Mild, +2 Mild, Some Noticeable to Difficulty, the Participant Noticeable to but Not to an the Observer Observer Rate of Perceived Exertion (PE) 8 Ambulation Distance (feet) 30 50 Treatment Charges O2 Evaluation - Inpatient 10/29/20 10/29/20 10/29/20 15:43 15:45 15:47 Home O2 Evaluation Test Phase Exercise Exercise Resting Oxygen Delivery Room Air Room Air Room Air Pulse Oximetry (90-100 %) 98 97 93 Pulse Rate (60-100 beats/min) 124 H 137 H 130 H Activity Tolerance Fair Fair Fair Rating of Perceived Dyspnea (PD) +2 Mild, Some +2 Mild, Some +2 Mild, Some Difficulty, Difficulty, Difficulty, Noticeable to Noticeable to Noticeable to the Observer the Observer the Observer Rate of Perceived Exertion (PE) 9 Very light 11 Fairly light 11 Fairly light Ambulation Distance (feet) 75 100 Treatment Charges
[2020-10-29 16:48] LABS: Glucose Point of Care 193 (65-105)
[2020-10-29] MEDS: TAMSULOSIN HCL 0.4 MG CAPSULE PO (20:40)
[2020-10-29] MEDS: INSULIN GLARGINE (*BKC) 100 UNITS/ML 34 UNITS SUB-Q (20:41)
[2020-10-29 20:50] LABS: Glucose Point of Care 128 (65-105)
[2020-10-30] VITALS (18 sets, daily range): BP systolic 103–146; BP diastolic 62–90; PULSE 98–138; RESP 16–20; TEMP 36.4–36.8; O2SAT 94–100
[2020-10-30] MEDS: LEVOTHYROXINE SODIUM 25 MCG TABLET PO (06:20)
[2020-10-30] MEDS: PREGABALIN (*CRX) 75 MG CAPSULE PO (08:01)
[2020-10-30] MEDS: POLYMYXIN/TRIMETHOPRIM OPHTH 10 ML DROPS 1 DROP EACH EYE (08:01)
[2020-10-30] MEDS: OPTI-GEN TAB 1 TABLET PO (08:02)
[2020-10-30] MEDS: AZELASTINE HCL NASAL 0.1% 137 MCG/SPR 30 ML BTL 1 SPRAY NASAL (08:02)
[2020-10-30] MEDS: ASPIRIN 81 MG ENTERIC TABLET PO (08:02)
[2020-10-30] MEDS: CYANOCOBALAMIN 1,000 MCG TABLET 3000 MCG PO (08:03)
[2020-10-30] MEDS: METOPROLOL SUCCINATE EXT REL 25 MG TABCR PO ×2 (08:03→11:41)
[2020-10-30] MEDS: VITAMIN B COMPLEX CAPSULE 1 CAP PO (08:03)
[2020-10-30] MEDS: PANTOPRAZOLE 40 MG TABLET PO (08:03)
[2020-10-30] MEDS: CLOPIDOGREL BISULFATE 75 MG TABLET PO (08:03)
[2020-10-30] MEDS: LORATADINE 10 MG TABLET PO (08:03)
[2020-10-30] MEDS: MIDODRINE HCL 2.5 MG TABLET 10 MG PO (08:03)
[2020-10-30] MEDS: FEBUXOSTAT 40 MG TABLET PO (08:04)
[2020-10-30] MEDS: BENZONATATE 100 MG CAPSULE 200 MG PO ×2 (08:04→12:50)
[2020-10-30] MEDS: polyethylene glycoL 3350 17 GM POWD.PACK PO (08:04)
[2020-10-30] MEDS: IPRATROPIUM BR 0.02% INH SOLN 0.5 MG/2.5 ML VIAL INHALATION ×2 (08:07→14:28)
[2020-10-30 08:40] LABS: Glucose Point of Care 115 (65-105)
--- NOTE | 2020-10-30 10:10 | PM.PNPUL ---
Progress Note: A&P Assessment and Plan (1) Pulmonary fibrosis: Code(s): J84.10 - Pulmonary fibrosis, unspecified Status: Acute Assessment and Plan: 10/28 He has peripheral interstitial infiltrates and subpleural lines and interlobular septal thickening. This has occurred since 02/22/2019. He had COVID in June, which may be the cause for this finding. He does not have a known collagen vascular disease, and no recent exposure to a known environmental trigger, however there are many. He is not working, has been disabled since 1986. 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 Has not had chemotherapy. This is likely from COVID as a diagnosis of exclusion. We will check a collagen vascular panel and hypersensitivity panel to exclude causes of pulmonary fibrosis, plan on a PFT as an out patient and walk study prior to discharge. He is getting treated for CHF with diuresis. There is not consensus guideline for treatment of COVID pulmonary fibrosis at this time. He might be unfortunate to have survived COVID yet have one of its lingering side effects, pulmonary fibrosis. 10/29 RA sats 97%. VIVIEN with autoantibody screen pending, hypersensitivity panel pending. 10/30 RA sats 98-100%, awaiting studies. (2) History of COVID-19: Code(s): Z86.16 - Personal history of COVID-19 Status: Acute Assessment and Plan: 30 June 2020 with admission here for 5 days, has not been back to normal since. He was able to walk, go up a flight of stairs, perform household activities prior to COVID. He will need PFT, home O2 evaluation and nocturnal assessment for O2 with sleep. 10/29 I will order apnea link tonight on RA and home O2 assessmen. Will change levalbuterol to SEVEN for now given tachycardia. Cough suppressants with robitussin DM and tessilon pearls. 10/30 States minimal improvement in cough with robitussin DM and tessilon pearls. Cough persists. Continue. States inhalers help him and I would continue antimuscarinic antagonists that his insurance will cover on discharge (atrovent 2 puffs Q 6 HR, incruse ellipta 62.5 at 1 puffs Q day, spireva 18 mics at 1 puff Q day or spireva respimat 2.5 mics at 1 puff Q day) Patient with a history of COVID diagnosed 07/23/2019 he was symptomatic and went to the emergency room twice but never was admitted to the hospital. He had initially infiltrates on his right lung and repeat CT scan on 08/21/2020 shows multilobar ground-glass infiltrates consistent with COVID pneumonia. Patient has improved especially over the last week and has now regained his taste, regained his smell, headaches have resolved denies fever phlegm or hemoptysis. His oxygen saturations are better on room air. His activity is improved but he still remains dyspneic and weak. I do not feel that he has any complicating respiratory issues that need to be addressed at this time. At this point is that it it is unclear if patient will recover completely from a respiratory viewpoint. Since some of the other symptoms have resolved and the respiratory symptoms have improved so I am hopeful to see continued improvement. I explained that we do not have any additional testing that will give us a an idea about the prognosis for complete recover. The patient should continue to remain active as long as they are comfortable from a respiratory viewpoint. Patient can be followed up by his primary physician who can refer back to us if any new pulmonary issues arise. Will sign off, discussed with Dr. Oconnor, please call for any questions. (3) KHAI (obstructive sleep apnea): Code(s): G47.33 - Obstructive sleep apnea (adult) (pediatric) Status: Acute Assessment and Plan: Patient has a history of obstructive sleep apnea diagnosed 8-10 years ago for which he wears a full face mask and room air. uses his machine regularly at night and get supplies every 3 months from his DME comp
--- NOTE | 2020-10-30 10:49 | PM.PNCARD ---
Progress Note: A&P Assessment and Plan (1) Sinus tachycardia: Code(s): R00.0 - Tachycardia, unspecified Status: Acute Assessment and Plan: Persistent, exacerbated with activity. Asymptomatic. No evidence of atrial flutter, SVT and or atrial fibrillation. Tolerating Toprol XL 25 mg daily, however, given history of significant orthostatic hypotension due to autonomic dysfunction has not previously tolerated escalations in beta-neris dosing. However, given pronounced tachycardia if orthostatics negative increased to 50 mg daily and observe tolerance. Check orthostatics with vital signs. Ambulate with extreme caution. -If stable and tolerating change in medication,l disposition per hospitalist service. -Follow-up as an outpatient as scheduled or in 1 month. -echocardiogram personally reviewed and discussed EF normal, no other new significant pathology identified. Mild LVH no obvious LVOT obstruction. No explanation by echo for persistence of sinus tachycardia. (2) Elevated troponin: Code(s): R77.8 - Other specified abnormalities of plasma proteins Status: Acute Assessment and Plan: Flat, indeterminate not secondary to acute coronary syndrome and/or plaque rupture. Demand ischemia secondary to underlying CAD, CKD, sinus tachycardia which is compensatory due to severe exertional dyspnea, intractable cough. 2D echo pending. Recommendations after review. Degree of his sinus tachycardia out of proportion to pulmonary findings, absence of hypoxia as he is not in decompensated heart failure or any acute distress. If significant LV dysfunction this would also explain persistent tachycardia on a compensatory basis. Otherwise appears likely explanation due to respiratory compensation, however, he is in no distress at rest, on room air and is not hypoxic. To assess LV function, chamber size, valve pathology pulmonary pressures. EF 60% on left heart catheterization June 2020. Continue aspirin and clopidogrel. Patient is intolerant to all statins attempted as well as Zetia. Unable to afford PCSK9 inhibitor therapy. (3) Cough: Code(s): R05 - Cough Status: Acute Assessment and Plan: Likely sequelae from COVID-19 in June. Evidence of developing pulmonary fibrosis on CT angiogram which is highly concerning. Severity of symptoms out of proportion to mild scarring noted on CT thus far in the absence of hypoxia. Greatly appreciated pulmonology involvement. Patient does not appear to be in decompensated heart failure. Certainly, if he has severe LV dysfunction and or LV enlargement may also contribute to cough. Caution about strong cough suppressants. (4) ALDRIDGE (dyspnea on exertion): Code(s): R06.00 - Dyspnea, unspecified Status: Acute Assessment and Plan: Severe, out of proportion to scarring particularly in the absence of hypoxia. Bronchodilator therapy per pulmonology. No clear treatment established in this regard. No clear evidence of decompensated heart failure. Collagen vascular disease and or systemic inflammatory condition workup underway although thought to be secondary to pulmonary fibrosis as a late complication from COVID-19. Continue to KHAI treatment with CPAP. Outpatient pulmonary function testing and close follow-up. (5) Pulmonary fibrosis: Code(s): J84.10 - Pulmonary fibrosis, unspecified Status: Acute Assessment and Plan: CT angiogram reveals interval development of pulmonary fibrosis, albeit mild in severity as above likely explanation for shortness of breath, cough, and chest pain. Most likely explanation is sequelae from COVID-19 pneumonia. Prognosis is guarded in this regard and uncertain. (6) CAD (coronary artery disease): Qualifiers: Associated angina: with unspecified angina Coronary Disease-Associated Artery/Lesion type: bypass graft [place] vs. transplanted heart: [place] heart Qualified Cod
[2020-10-30 12:36] LABS: Glucose Point of Care 107 (65-105)
--- NOTE | 2020-10-30 14:44 | PM.DS ---
DS: Admitting Diagnosis Admitting Diagnosis Admitting Diagnosis: (1) Chest pain at rest: (2) Elevated troponin: (3) Chronic anemia: (4) Chronic kidney disease, stage 3 (moderate): (5) Chronic obstructive pulmonary disease, unspecified: (6) Hypothyroidism (acquired): (7) Type 2 diabetes mellitus with other diabetic kidney complication: Code(s): (8) CAD (coronary artery disease): (9) Essential (primary) hypertension: DS: Discharge Diagnosis Discharge Diagnosis (1) Pulmonary fibrosis: Code(s): J84.10 - Pulmonary fibrosis, unspecified Status: Acute Assessment and Plan: Will follow up in the outpatient setting. (2) Sinus tachycardia: Code(s): R00.0 - Tachycardia, unspecified Status: Acute Assessment and Plan: Increased his Metoprolol (3) Orthostatic hypotension: Code(s): I95.1 - Orthostatic hypotension Status: Acute Assessment and Plan: On Midodrine Autonomic disregulation. (4) CAD (coronary artery disease): Qualifiers: Coronary Disease-Associated Artery/Lesion type: bypass graft [place] vs. transplanted heart: [place] heart Associated angina: with unspecified angina Qualified Code(s): I25.709 - Atherosclerosis of coronary artery bypass graft(s), unspecified, with unspecified angina pectoris Code(s): I25.10 - Atherosclerotic heart disease of [place] coronary artery without angina pectoris Status: Chronic Assessment and Plan: Stable Continue present management. (5) Elevated troponin: Code(s): R77.8 - Other specified abnormalities of plasma proteins Status: Acute Assessment and Plan: Basically flat felt to be due to demand ischemia. (6) Chest pain at rest: Code(s): R07.9 - Chest pain, unspecified Status: Acute Assessment and Plan: Resolved. (7) Ischemic cardiomyopathy: Code(s): I25.5 - Ischemic cardiomyopathy Status: Chronic Assessment and Plan: S/p CABG and multiple stents (8) Essential (primary) hypertension: Code(s): I10 - Essential (primary) hypertension Status: Chronic Assessment and Plan: Stable Well controlled (9) KHAI (obstructive sleep apnea): Code(s): G47.33 - Obstructive sleep apnea (adult) (pediatric) Status: Acute Assessment and Plan: Continue CPAP at night time. (10) Chronic anemia: Code(s): D64.9 - Anemia, unspecified Status: Chronic Assessment and Plan: Follow up in the outpatient setting. DS: Summary Hospital Course Reason for hospitalization: SOB Hospital Course: This is an 80 year old man with known COPD, CAD+ s/p CABG x3, s/p multiple stents placed who came to the hospital with a complaint of ongoing intermitted chest pain that he has had for several weeks and worsening SOB with activity. Has had a nonproductive hacking cough which he says has been worsening since he had COVID pneumonia 3 months ago in June of 2020. His chest pain has been very bothersome over the past few days and typically occurs when he is coughing. He describes it as across the front of his chest and radiating up towards his shoulders. Associated symptoms include diaphoresis and nausea. He denies any significant shortness of breath, palpitations, fevers, chills, or dizziness. In the ER today and found to have a mildly elevated troponin of 0.053. CTA Chest was performed which did not demonstrate any pulmonary embolism but did show interval development of peripheral interstitial lung disease, likely developing pulmonary fibrosis. Cardiology was consulted by ER provider. The patient was admitted to the hospital for chest pain rule out. No other complaints. Consults obtained 1-Cardiology 2-Pulmonology Patient had recent extensive cardiac work up as recent as July last 2019. It was felt that no ACS was present and likely was demand ischemia. He
[2020-10-31 09:39] LABS: ANA Cascade Screen Negative (Negative)
== END 2020-10-30 15:21 | disposition home or self-care (01) | DRG 197 ==
LOC: ANHED 13:34 → ANHIMU 16:06
PROVIDERS: Family Medicine; Internal Medicine Cardiovascular Disease; Internal Medicine Critical Care Medicine; Admitting Provider Internal Medicine; Emergency Provider Emergency Medicine; PCP Internal Medicine; Visit Provider Internal Medicine
DX: J84.10 Pulmonary fibrosis, unspecified (principal); I13.0 Hypertensive heart and chronic kidney disease with heart failure and stage 1 through stage 4 chronic kidney disease, or unspecified chronic kidney disease; I50.32 Chronic diastolic (congestive) heart failure; I24.8 Other forms of acute ischemic heart disease; B94.8 Sequelae of other specified infectious and parasitic diseases; E11.29 Type 2 diabetes mellitus with other diabetic kidney complication; N18.32 Chronic kidney disease, stage 3b; I95.1 Orthostatic hypotension; I25.10 Atherosclerotic heart disease of native coronary artery without angina pectoris; I25.5 Ischemic cardiomyopathy; G47.33 Obstructive sleep apnea (adult) (pediatric); J44.9 Chronic obstructive pulmonary disease, unspecified; D63.1 Anemia in chronic kidney disease; E03.9 Hypothyroidism, unspecified; R00.0 Tachycardia, unspecified; E55.9 Vitamin D deficiency, unspecified; K21.9 Gastro-esophageal reflux disease without esophagitis; M19.011 Primary osteoarthritis, right shoulder; M19.012 Primary osteoarthritis, left shoulder; Z95.5 Presence of coronary angioplasty implant and graft; Z90.49 Acquired absence of other specified parts of digestive tract; I25.2 Old myocardial infarction; Z86.73 Personal history of transient ischemic attack (TIA), and cerebral infarction without residual deficits
CPT/HCPCS: 36415; 71045; 71275; 80048; 80076; 82948; 83605; 83735; 83880; 84443; 84484; 85025; 85610; 85730; 86038; 86140; 86331; 86606; 86609; 87040; 93005; 93306; 94618; 94640; 96374; 97110; 97116; 97161; 97166; 97530; 97535; 99285; A9270; G0378; J1815; J7040; Q9957; Q9967

== ENCOUNTER 2021-03-09 07:09 | Emergency (ER) | payer MEDICARE, SELFPAY ==
--- NOTE | ~2021-03-09 | XR_ITS ---
XR chest 2V DATE: 03/09/2021 07:35 INDICATION: Weakness TECHNIQUE: AP and lateral views COMPARISON: 10/27/2020 CT pulmonary scan 10/27/2020 portable AP chest FINDINGS: Status post sternotomy/coronary bypass graft surgery. There may be coronary artery stents. Heart size is within normal range. There is mild aortic calcification and tortuosity. No hilar or med iastinal enlargement is detected. No pulmonary infiltrate or consolidation, pleural effusion or pulmonary vascular congestion or pneumo thorax is detected. IMPRESSION: Status post sternotomy/CABG No active cardiopulmonary disease Reviewed, dictated and finalized at location A.
[2021-03-09 07:18] VITALS: BP 148/80; PULSE 66; RESP 18; TEMP 36.7; O2SAT 97
--- NOTE | 2021-03-09 07:18 | ECG_ITS ---
Measurements Intervals [place] Rate: 66 P: -14 UT: 201 QRS: -52 QRSD: 97 T: 7 QT: 413 QTc: 436 Interpretive Statements SINUS RHYTHM BORDERLINE AV CONDUCTION DELAY INCOMPLETE RIGHT BUNDLE BRANCH BLOCK LEFT ANTERIOR FASCICULAR BLOCK BORDERLINE T WAVE ABNORMALITY- INFERIOR LEADS BASELINE ARTIFACT- V1, V3-V5 ABNORMAL ECG Electronically Signed On 03-09-2021 17:02:20 CDT by James Sanchez D.O.
--- NOTE | 2021-03-09 07:29 | ED.WEAKNESS ---
HPI - Weakness General Chief complaint: Weakness Stated complaint: back pain History of Present Illness HPI Narrative: When he got up this morning he felt light headed. He was worried that he was going to pass out, so he lowered himself to the ground. He checked his BP and it was 60/40. When EMS arrived his BP was actually elevated. On arrival here he continues to feel weak. He has a h/o low blood pressure, which he is on midodrine for. No CP, SOB, nausea. Related Data Home Medications Medication Instructions Recorded Confirmed aspirin 81 mg tablet,delayed 81 mg PO DAILY 07/20/19 12/20/20 release febuxostat 40 mg tablet 40 mg PO DAILY 07/20/19 12/20/20 nitroglycerin 0.4 mg sublingual 0.4 mg SUBLINGUAL Q5M PRN 07/20/19 12/20/20 tablet pantoprazole 40 mg tablet,delayed 40 mg PO QAM 07/20/19 12/20/20 release pregabalin 75 mg capsule 75 mg PO BID 07/20/19 12/20/20 polymyxin B sulfate 10,000 2 drop OPHTHALMIC (EYE) ONCE ml 12/13/19 12/20/20 unit-trimethoprim 1 mg/mL eye drops zbahrxfadmccd-jdwehtqn-uprxgra 500 1 tablet PO .at bedtime PRN tablet 02/08/20 12/20/20 mg-25 mg-15 mg tablet PreserVision AREDS-2 1 tablet PO BID 05/25/20 12/20/20 acetaminophen 500 mg PO DAILY 05/25/20 12/20/20 insulin aspart U-100 [Novolog 1 sliding scale dose SUBCUT 05/25/20 12/20/20 U-100 Insulin aspart] USEASDIRECTD insulin glargine 34 unit SUBCUT HS 05/25/20 12/20/20 vitamin B complex [B 1 tablet PO DAILY 05/25/20 12/20/20 Complex-Vitamin B12] triamcinolone acetonide 1 applic TOPICAL BID PRN 07/17/20 12/20/20 midodrine 5 mg tablet 10 mg PO BID tablet 08/20/20 12/20/20 clopidogrel 75 mg PO DAILY 10/27/20 12/20/20 tamsulosin 0.4 mg PO HS 10/27/20 12/20/20 Allergies Allergy/AdvReac Type Severity Reaction Status Date / Time Dbemurs-Pzc-Gir Reductase Allergy Unknown Muscle Verified 03/09/21 07:23 Inhibitor Twitching zolpidem Allergy Unknown Mental Verified 03/09/21 07:23 Status change Review of Systems Review of Systems: All systems reviewed & are unremarkable except as noted in HPI and below Constitutional: Constitutional: Denies chills and Denies fever(s) Eyes: Eyes: Reports no additional eye complaints ENT: Denies vertigo Cardiovascular: Cardiovascular: Denies chest pain Respiratory: Respiratory: Denies dyspnea Gastrointestinal: Gastrointestinal: Denies abdominal pain and Denies nausea Neurologic: Reports dizziness, Denies syncope, Denies numbness and Denies weakness Psychiatric: Psychiatric: Denies anxiety PMFSH Past Medical History Medical History Adrenal insufficiency (Lisandro's disease) JACK (acute kidney injury) Carpal tunnel syndrome on both sides Chronic kidney disease due to diabetes mellitus COVID-19 Essential (primary) hypertension Heart attack 2012 History of left heart catheterization 2011,2018,2019 History of stroke 2019 Hx of roasterman use of blood thinners Hypothyroidism (acquired) Left carpal tunnel syndrome Numbness of left hand Numbness of right hand Right carpal tunnel syndrome Torn rotator cuff Vitamin D deficiency, unspecified Weakness of left hand Weakness of right hand Surgical History Surgical History History of appendectomy 1962 History of back surgery 1986, 1990 History of heart bypass surgery Triple bypass 2018 History of throat surgery History of tonsillectomy Status post trigger finger release Family History Family History Mother Family history of diabetes mellitus in first degree relative Diabetes mellitus Kidney disease Father Family history of congestive heart failure Macular degeneration Sibling Macular degeneration Social History Social History Social History: Smoking status: Never smoker Sec
[2021-03-09 07:57] LABS: Basophils Percent Auto 0.6 % (0.2-1.2); Eosinophils Absolute Auto 0.2 K/mm3 (0-0.3); Eosinophils Percent Auto 6.5 % (0-4.4); Hematocrit 36.1 % (42.0-52.0); Hemoglobin 12.4 g/dL (14.0-18.0); Immature Granulocyte Absolute 0.01 K/mm3 (0.00-0.031); Immature Granulocyte Percent A 0.3 % (0-0.5); Lymphocytes Percent Auto 32.7 % (18.3-44.2); Mean Corpuscular HGB Conc 34.3 g/dl (32-36); Mean Corpuscular Hemoglobin 30.4 pg (26-34); Mean Corpuscular Volume 88.5 fl (80-100); Mean Platelet Volume 9.7 fl (7.4-10.4); Monocytes Absolute Auto 0.4 K/mm3 (0.1-0.6); Neutrophils Absolute Auto 1.6 K/mm3 (1.3-6.7); Neutrophils Percent Auto 48.9 % (45.5-73.1); Platelet Count Result 173 k/mm3 (150-375); Red Blood Count 4.08 M/mm3 (4.6-6.20); Red Cell Distribution Width 14.9 % (11.5-14.5); White Blood Count 3.4 K/mm3 (4.5-10.0)
[2021-03-09 08:08] LABS: Add Urine Microscopic? YES; Appearance Urine Clear (Clear); Bilirubin Urine Negative (Negative); Blood Urine Negative (Negative); Color Urine Yellow (Yellow); Glucose Urine UA Negative (Negative); Ketones Urine Negative (Negative); Leukocyte Esterase Ur Negative LEU/UL (Negative); Nitrate Urine Negative (Negative); Protein Urine Negative (Negative); RBC Urine 0-2 /hpf (0-2); Specific Grav Ur 1.009 (1.001-1.035); Urobilinogen Urine Negative mg/dL (<2.0); WBC Urine 0-3 /hpf
[2021-03-09 08:08] LABS: Alanine Aminotransferase 19 U/L (4-50); Albumin Level 4.7 g/dL (3.5-5.1); Alkaline Phosphatase 82 U/L (38-126); Anion Gap 13 mmol/L (8-16); Aspartate Amino Transferase 26 U/L (17-59); Bilirubin,Total 0.6 mg/dL (0.2-1.3); Blood Urea Nitrogen 20 mg/dL (9-20); Calcium 10.1 mg/dL (8.4-10.2); Carbon Dioxide 20 mmol/L (22-30); Chloride 104 mmol/L (98-107); Estimated CRCL calculation 29 ml/min; Estimated Glomerular Filt Rate 34; Glucose 135 mg/dL (65-110); Potassium 4.3 mmol/L (3.4-5.0); Sodium 137 mmol/L (137-145)
[2021-03-09] MEDS: SODIUM CHLORIDE 0.9% IV 500 ML 999 ML IV CONT (09:36)
[2021-03-09 10:53] VITALS: BP 132/74; PULSE 68; RESP 18; O2SAT 99
== END 2021-03-09 10:55 | disposition home or self-care (01) ==
PROVIDERS: Emergency Provider Emergency Medicine; PCP Family Medicine
DX: R55 Syncope and collapse (principal); E11.22 Type 2 diabetes mellitus with diabetic chronic kidney disease; I12.9 Hypertensive chronic kidney disease with stage 1 through stage 4 chronic kidney disease, or unspecified chronic kidney disease; N18.9 Chronic kidney disease, unspecified; I25.2 Old myocardial infarction; E27.1 Primary adrenocortical insufficiency; E03.9 Hypothyroidism, unspecified; E55.9 Vitamin D deficiency, unspecified; Z86.16 Personal history of COVID-19; Z86.73 Personal history of transient ischemic attack (TIA), and cerebral infarction without residual deficits; Z79.4 Long term (current) use of insulin; Z79.82 Long term (current) use of aspirin; Z95.1 Presence of aortocoronary bypass graft; Z95.5 Presence of coronary angioplasty implant and graft; I45.2 Bifascicular block; R94.31 Abnormal electrocardiogram [ECG] [EKG]
CPT/HCPCS: 36415; 71046; 80053; 81001; 85025; 93005; 99283; J7040

== ENCOUNTER 2021-08-25 11:56 | Observation (INO) | payer MEDICARE, OTHER, SELFPAY ==
[2021-08-25] VITALS (10 sets, daily range): BP systolic 132–159; BP diastolic 74–88; PULSE 54–71; RESP 13–17; TEMP 36.2–36.9; O2SAT 97–100; BMI 24.2
--- NOTE | ~2021-08-25 | XR_ITS ---
EXAMINATION: XR chest 2V 08/25/2021 12:34 INDICATION: Chest pain. PROCEDURE: 2 view chest COMPARISON: Comparison to multiple prior studies sequentially, with oldest reviewed study dated 06/19. FINDINGS: The lungs are clear. The cardiomediastinal silhouette is within normal limits. There are no pleural effusions. There is no pneumothorax suspected. Status post median sternotomy for CABG. IMPRESSION: 1: NO ACUTE CARDIOPULMONARY DISEASE. Reviewed, dictated and finalized at location A. R OFF
--- NOTE | 2021-08-25 12:03 | ED.CHESTPAIN ---
HPI - Chest Pain General Chief Complaint: Chest Pain Stated Complaint: CP Time Seen by Provider: 08/25/21 12:03 Source: patient and EMS Mode of arrival: ambulatory Limitations: no limitations History of Present Illness HPI narrative: Patient is an 81 yo male with a history of HTN, HLD, Type II DM, presenting for evaluation of chest pain. Pain is in the center of his chest with radiation to the bilateral arms. Pt with associated dyspnea and palpitations. Pt feels generally weak. Pt reports the pain is burning in nature. Denies abdominal pain, nausea or vomiting. Pt reports taking upwards of 5-6 mg of Nitroglycerin at home last night and today which did improve his symptoms. Pt is taking clopidogrel. He has been compliant with his medications. Pt also took ASA this morning. Of note, patient with a hospitalization in November of this year for a heart attack for which patient received 1 stent which occurred while the patient was in [place] visiting family. With that hospitalization, patient developed acute cholecystitis and had a drain placed. At that time because the patient was on clopidogrel, decision was made to do conservative therapy only. Patient was discharged from that facility in December, returned back to [place] where he typically is followed at the [facility]. Patient has had follow-up with a general surgeon with repeat scans who did not plan to do any additional operations as the patient has been asymptomatic from a gallbladder standpoint. Patient denies any current abdominal pain. No nausea or vomiting. Related Data Home Medications Medication Instructions Recorded Confirmed febuxostat 40 mg tablet 40 mg PO DAILY 07/20/19 08/20/21 nitroglycerin 0.4 mg sublingual 0.4 mg SUBLINGUAL Q5M PRN 07/20/19 08/20/21 tablet pantoprazole 40 mg tablet,delayed 40 mg PO QAM 07/20/19 08/20/21 release polymyxin B sulfate 10,000 2 drop OPHTHALMIC (EYE) ONCE ml 12/13/19 08/20/21 unit-trimethoprim 1 mg/mL eye drops PreserVision AREDS-2 1 tablet PO BID 05/25/20 08/20/21 insulin aspart U-100 [Novolog 1 sliding scale dose SUBCUT 05/25/20 08/20/21 U-100 Insulin aspart] USEASDIRECTD insulin glargine 34 unit SUBCUT HS 05/25/20 08/20/21 vitamin B complex [B 1 tablet PO DAILY 05/25/20 08/20/21 Complex-Vitamin B12] triamcinolone acetonide 1 applic TOPICAL BID PRN 07/17/20 08/20/21 midodrine 5 mg tablet 10 mg PO BID tablet 08/20/20 08/20/21 clopidogrel 75 mg PO DAILY 10/27/20 08/20/21 tamsulosin 0.4 mg PO HS 10/27/20 08/20/21 alirocumab 75 mg/mL subcutaneous 75 mg SUBCUT ONCE 07/16/21 08/20/21 pen injector benzonatate 200 mg capsule 200 mg PO TID 07/16/21 08/20/21 isosorbide mononitrate 30 mg 30 mg PO DAILY 07/16/21 08/20/21 tablet,extended release 24 hr sodium bicarbonate 650 mg tablet 650 mg PO QID PRN 07/16/21 08/20/21 trazodone 50 mg tablet 25 mg PO QHS PRN 07/16/21 08/20/21 Allergies Allergy/AdvReac Type Severity Reaction Status Date / Time Wcrkqnc-GYN-DmL Reductase Allergy Unknown Muscle Verified 08/25/21 12:04 Inhibitor Twitching [Nfrttsd-Zfw-Kmc Reductase Inhibitor] zolpidem Allergy Unknown Mental Verified 08/25/21 12:04 Status change Review of Systems Review of Systems: CONSTITUTIONAL: Denies fever, chills, or sweats. EYES: Denies visual changes, redness, or discharge. ENT: Denies rhinorrhea, congestion, sore throat, or otalgia. CARDIOVASCULAR: Reports chest pain, palpitations, denies edema RESPIRATORY: Denies cough, reports mild dyspnea at times, denies current dyspnea GASTROINTESTINAL: Denies abdominal pain, nausea, vomiting, or diarrhea. GENITOURINARY: Denies dysuria or hematuria. SKIN: Denies rash or itching. MUSCULOSKELETAL: Denies back pain, joint pain, or myalgia. NEUROLOGIC: Denies headache, numbness, or weakness. [facility] Past Medical History Medical History Adrenal insufficiency ([place]'s disease) JACK (acute kidney injury) Ca
--- NOTE | 2021-08-25 12:06 | ECG_ITS ---
Measurements Intervals [place] Rate: 63 P: 2 MD: 181 QRS: -53 QRSD: 95 T: 14 QT: 418 QTc: 431 Interpretive Statements SINUS RHYTHM ATRIAL PREMATURE COMPLEXES LEFT ANTERIOR FASCICULAR BLOCK VOLTAGE CRITERIA FOR LVH POOR R WAVE PROGRESSION, ANTERIOR LEADS BORDERLINE T WAVE ABNORMALITY- INFERIOR LEADS BASELINE ARTIFACT- II, AVR, AVL, V3-V5 ABNORMAL ECG Electronically Signed On 08-25-2021 16:05:37 EXAMINATION GRADER by James Sanchez D.O.
[2021-08-25] MEDS: ASPIRIN 81 MG CHEWABLE TABLET 324 MG PO (12:19)
--- NOTE | 2021-08-25 12:19 | PC.NURSE ---
pt did take one dose of aspirin 81 mg lighter captain to ED
[2021-08-25 12:30] LABS: Basophils Percent Auto 0.1 % (0.2-1.2); Eosinophils Percent Auto 0.1 % (0-4.4); Hematocrit 40.1 % (42.0-52.0); Hemoglobin 13.7 g/dL (14.0-18.0); Immature Granulocyte Absolute 0.09 K/mm3 (0.00-0.031); Lymphocytes Absolute Auto 1.92 K/mm3 (0.9-3.2); Lymphocytes Percent Auto 20.6 % (18.3-44.2); Mean Corpuscular HGB Conc 34.2 g/dl (32-36); Mean Corpuscular Hemoglobin 31.1 pg (26-34); Mean Corpuscular Volume 91.1 fl (80-100); Mean Platelet Volume 9.8 fl (7.4-10.4); Monocytes Absolute Auto 0.8 K/mm3 (0.1-0.6); Monocytes Percent Auto 8.5 % (2.6-8.5); Neutrophils Absolute Auto 6.5 K/mm3 (1.3-6.7); Neutrophils Percent Auto 69.7 % (45.5-73.1); Platelet Count Result 202 k/mm3 (150-375); Red Cell Distribution Width 12.3 % (11.5-14.5); White Blood Count 9.3 K/mm3 (4.5-10.0)
[2021-08-25 12:40] LABS: Alanine Aminotransferase 26 U/L (4-50); Albumin Level 4.5 g/dL (3.5-5.1); Alkaline Phosphatase 59 U/L (38-126); Anion Gap 11 mmol/L (8-16); Aspartate Amino Transferase 24 U/L (17-59); Bilirubin,Total 0.5 mg/dL (0.2-1.3); Blood Urea Nitrogen 36 mg/dL (9-20); Calcium 9.5 mg/dL (8.4-10.2); Carbon Dioxide 26 mmol/L (22-30); Chloride 96 mmol/L (98-107); Estimated CRCL calculation 29 ml/min; Estimated Glomerular Filt Rate 34; Glucose 175 mg/dL (65-110); Lipase 460 U/L (23-300); Potassium 4.3 mmol/L (3.4-5.0); Sodium 133 mmol/L (137-145)
[2021-08-25 12:48] LABS: Prothrombin Time 13.5 Seconds (11.1-14.7)
[2021-08-25 12:49] LABS: Partial Thromboplastin Time 28.1 SECONDS (22.3-36.8)
[2021-08-25 12:52] LABS: Troponin I 0.026 ng/mL (0.000-0.034)
[2021-08-25 13:34] LABS: Basophils Percent Auto 0.2 % (0.2-1.2); Eosinophils Percent Auto 0.1 % (0-4.4); Hematocrit 39.2 % (42.0-52.0); Hemoglobin 13.6 g/dL (14.0-18.0); Immature Granulocyte Absolute 0.08 K/mm3 (0.00-0.031); Immature Granulocyte Percent A 0.8 % (0-0.5); Lymphocytes Absolute Auto 1.93 K/mm3 (0.9-3.2); Lymphocytes Percent Auto 19.8 % (18.3-44.2); Mean Corpuscular HGB Conc 34.7 g/dl (32-36); Mean Corpuscular Hemoglobin 31.1 pg (26-34); Mean Corpuscular Volume 89.5 fl (80-100); Mean Platelet Volume 9.8 fl (7.4-10.4); Monocytes Absolute Auto 0.8 K/mm3 (0.1-0.6); Monocytes Percent Auto 8.5 % (2.6-8.5); Neutrophils Absolute Auto 6.9 K/mm3 (1.3-6.7); Neutrophils Percent Auto 70.6 % (45.5-73.1); Platelet Count Result 198 k/mm3 (150-375); Red Blood Count 4.38 M/mm3 (4.6-6.20); Red Cell Distribution Width 12.2 % (11.5-14.5); White Blood Count 9.7 K/mm3 (4.5-10.0)
[2021-08-25 13:45] LABS: Alanine Aminotransferase 25 U/L (4-50); Albumin Level 4.5 g/dL (3.5-5.1); Alkaline Phosphatase 60 U/L (38-126); Anion Gap 11 mmol/L (8-16); Aspartate Amino Transferase 23 U/L (17-59); Bilirubin,Total 0.4 mg/dL (0.2-1.3); Blood Urea Nitrogen 35 mg/dL (9-20); Calcium 9.4 mg/dL (8.4-10.2); Carbon Dioxide 25 mmol/L (22-30); Chloride 97 mmol/L (98-107); Estimated CRCL calculation 29 ml/min; Estimated Glomerular Filt Rate 34; Glucose 143 mg/dL (65-110); Potassium 4.1 mmol/L (3.4-5.0); Sodium 133 mmol/L (137-145)
[2021-08-25 13:46] LABS: INR 1.1; Prothrombin Time 13.6 Seconds (11.1-14.7)
[2021-08-25 13:47] LABS: Partial Thromboplastin Time 26.9 SECONDS (22.3-36.8)
[2021-08-25 13:52] LABS: D Dimer 0.27 ug/mL (<0.48)
[2021-08-25 13:55] LABS: Troponin I 0.025 ng/mL (0.000-0.034)
[2021-08-25 16:24] LABS: Troponin I 0.023 ng/mL (0.000-0.034)
--- NOTE | 2021-08-25 16:35 | PC.NURSE ---
This patient, Freddy Ferguson, was admitted to IMU Room 206-01. Patient/family oriented to hospital policies and general routines including ID bracelet, bed and alarms, visiting hours, pain management, procedures, bathroom and other care routines, personal items, smoking policy, room service/diet, and visiting hours. Information on how to activate the Rapid Response Team has been discussed. Patient/Family are encouraged to report perceived risks to care and to ask questions if they do not understand what they are told or what they should do.
--- NOTE | 2021-08-25 19:00 | PM.IMHP ---
H&P: HPI History of Present Illness Date/Time: 08/25/21 19:00 Chief Complaint: Chest pain. Narrative: This is a very pleasant 81-year-old male with multiple medical problems including coronary artery disease with history of stents and 3 vessel bypass, hypertension, dyslipidemia, insulin-dependent type 2 diabetes mellitus, chronic kidney disease, paroxysmal atrial fibrillation, and several other comorbidities who presented to the emergency department earlier today via EMS from home for evaluation of chest pain. It is not unusual for him to have intermittent chest discomfort with activity and he has nitroglycerin at home as needed. In fact yesterday he had midsternal chest heaviness which improved with nitroglycerin. This morning he once again developed heaviness and even a burning sensation in the mid chest which radiated into the throat and jaw, associated with mild shortness of breath. He took upwards of 4 to 5 mg of nitroglycerin today though it did not seem to help his discomfort. These feelings are similar to those he has experienced with previous MIs. The patient's last cardiac catheterization with intervention was in November 2020 while visiting family in [place]. At the same time he had acute cholecystitis and he was thought to be too high risk for surgery and a cholecystostomy tube was placed with improvement in his symptoms. In fact he had a follow-up appointment at the [facility] just last week for a in upper quadrant ultrasound and HIDA scan though he does not yet have the results. He denies that his discomfort today is similar to that he felt with the cholecystitis and he has not had any gallbladder attacks since last spring. At the time my evaluation he still has intermittent heaviness however on exam he has some reproducible tenderness in the left lower anterior chest as well. His abdominal exam is benign and he denies epigastric and abdominal pain, nausea, and vomiting. Review of Systems Review of Systems: Twelve systems were reviewed. No fever, chills, or sweats. No recent cold or flu symptoms. No cough. No sick contacts. He denies nausea, vomiting, and diarrhea. No history of pancreatitis. He has a remote history of peptic ulcers. Patient was recently started on a prednisone taper for sciatica. He has noticed that his glucose has been running a bit high with that. Except as documented, all other systems were reviewed and are negative. [facility] Past Medical History Medical History (Updated 08/25/21 @ 23:40 by Renata Gudino PA-C) Adrenal insufficiency ([place]'s disease) Anemia Benign prostatic hyperplasia Cerebrovascular accident (2019) Chronic kidney disease due to diabetes mellitus Chronic obstructive pulmonary disease, unspecified Coronary artery disease History of multiple stents and CABG. COVID-19 Degenerative disc disease Essential hypertension Gastroesophageal reflux disease GI bleed (11/2018) Presumed to be diverticular in origin. Gout Hypothyroidism Insulin dependent type 2 diabetes mellitus Ischemic cardiomyopathy Macular degeneration Mixed hyperlipidemia Myocardial infarction Obstructive sleep apnea on CPAP Osteoarthritis Paroxysmal atrial fibrillation Peptic ulcer Peripheral vascular disease due to secondary diabetes Vitamin D deficiency Surgical History Surgical History (Updated 08/25/21 @ 23:35 by Renata Gudino PA-C) History of appendectomy (1963) History of bilateral cataract extraction History of cardiac catheterization 2011, 2017, 2018 History of colonoscopy with polypectomy History of coronary artery bypass graft x 3 (01/2018) History of fusion of cervical spine History of heart artery stent History of loop recorder History of lumbar discectomy History of throat surgery History of tonsillectomy History of transurethral resection of prostate Status post trigger finger release Family History Family History Mother Family history of diabetes
[2021-08-25 20:22] LABS: Troponin I 0.025 ng/mL (0.000-0.034)
[2021-08-25 22:22] LABS: Troponin I 0.024 ng/mL (0.000-0.034)
[2021-08-26] VITALS (8 sets, daily range): BP systolic 98–142; BP diastolic 68–82; PULSE 54–92; RESP 16; TEMP 35.8–36.9; O2SAT 96–98; BMI 24.2
[2021-08-26 00:14] LABS: Glucose Point of Care 137 mg/dl (65-105)
[2021-08-26 04:19] LABS: Alanine Aminotransferase 39 U/L (4-50); Albumin Level 4.1 g/dL (3.5-5.1); Alkaline Phosphatase 65 U/L (38-126); Anion Gap 9 mmol/L (8-16); Aspartate Amino Transferase 33 U/L (17-59); Bilirubin,Total 0.5 mg/dL (0.2-1.3); Blood Urea Nitrogen 36 mg/dL (9-20); Calcium 9.1 mg/dL (8.4-10.2); Carbon Dioxide 26 mmol/L (22-30); Chloride 95 mmol/L (98-107); Estimated CRCL calculation 29 ml/min; Estimated Glomerular Filt Rate 34; Glucose 144 mg/dL (65-110); Lipase 290 U/L (23-300); Potassium 4.4 mmol/L (3.4-5.0); Sodium 130 mmol/L (137-145)
[2021-08-26 04:26] LABS: Hemoglobin A1C 6.3 % (<5.7)
[2021-08-26] MEDS: LEVOTHYROXINE SODIUM 25 MCG TABLET PO (06:11)
--- NOTE | 2021-08-26 08:45 | PM.CNCAR ---
Assessment and Plan Additional Plan This is an 81-year-old man with long history of multivessel coronary disease with previous surgical and percutaneous revascularization. His most recent PCI was done of in [place] earlier in 2020 and by his history and we do not have any of those details at this time. He enters the hospital with a chest pain syndrome that of course will always create concern in this gentleman's case however in the face of this is troponin levels are obviously negative for acute coronary syndrome and he is relatively comfortable appearing this morning. I am going to recommend resuming the isosorbide that was on his medical regimen earlier starting with Imdur 60 mg daily. Given his history of diffuse multivessel disease but the absence of any evidence of acute coronary syndrome it would be my tendency at this point not to recommend another angiogram for this gentleman at this time. Constantine Barahona MD [facility] History of Present Illness History of Present Illness Consult date/time: 08/26/21 08:45 Consult reason: chest pain Reason For Visit: Atypical chest pain Narrative: This is an 81-year-old patient with coronary artery disease of seeing at the request of the hospitalist this morning because of chest pain with which he was admitted to the hospital yesterday. This is a patient known to Dr. Spence of our practice with chronic coronary artery disease. The patient not uncommonly experiences chest pain that is nitrate responsive according to the history I received from him today in reviewing several years of office notes. He is used to this and does not become alarmed by it generally speaking but he became concerned over this past weekend when he was having chest pain episodes that were not easily responsive to nitrates he thinks he took about 5 doses of nitroglycerin on Thursday and a couple more on Thursday and then he came to the hospital. He describes this as a burning low substernal pain that does not really radiate anywhere it was not associated with diaphoresis nausea or vomiting. Despite the symptoms and ongoing since symptoms he came to the emergency room where his ECG did not show any acute ST segment changes. Since admission to the hospital he has had 5 troponins samples done that are all normal. He is relatively comfortable this morning still has some persistent mild discomfort. His history of coronary artery disease goes back a number of years. He underwent PCI and then for multivessel disease underwent coronary bypass grafting in 2018 at [facility]. His surgery consisted of a MOHAMUD graft to the LAD and vein grafts to OM1 and OM3. Apparently he has been to the research laboratory manager a number of times for evaluation of chest pain. It looks like in 2019 there is a note in the chart that he underwent stenting of the vein graft to OM3. Even after that intervention he was still having symptoms of chest pain intermittently that would occur in an unpredictable fashion but were typically nitrate responsive. He was traveling visiting family members in the spring/early summer of 2020 up in [place] and had some chest pain he describes being brought to the emergency room in [facility] where his troponin levels were found to be elevated and he underwent an and a another PCI. He can not really tell me which vessel or graft was involved. Despite all of this he is known to have relatively good left ventricular systolic function by previous echoes that are in the record. He seems to be comfortable seeing him today. He sees both Dr. Spence as well as a cisco unified communications engineer at the [facility]. He did state that during a recent appointment his cisco unified communications engineer at the [facility] discontinued his isosorbide that he was previously taking as part of his antianginal regimen. Continues on a regimen of dual anti-platelet therapy with aspirin and clopidogrel he also takes metoprolol succinate 50 mg daily the chart reports him to be allergic/intolerant to statins
--- NOTE | 2021-08-26 09:08 | PM.IMPN ---
Progress Note: A&P Assessment and Plan (1) Chest pain: Code(s): R07.9 - Chest pain, unspecified Status: Acute Assessment and Plan: He has ruled out for acute coronary syndrome by serial troponins. Given his history and report that his symptoms are similar to those he has experienced with previous MIs, I will ask Dr. Manzanares or 1 of his partners to see him in consultation. The patient does however have some reproducible tenderness to palpation over the left anterior chest wall. Cannot rule out GI etiology given elevated lipase and history of cholecystitis last spring however his abdominal exam is benign at the time my evaluation. (2) Elevated lipase: Code(s): R74.8 - Abnormal levels of other serum enzymes Status: Acute Assessment and Plan: Patient had a right upper quadrant ultrasound and HIDA scan done at the [facility] earlier last week. Records have been requested for review. Abdominal exam is benign thus I do not feel CT is indicated. Will continue to trend lipase. (3) Coronary artery disease: Code(s): I25.10 - Atherosclerotic heart disease of [place] coronary artery without angina pectoris Status: Acute Assessment and Plan: Continue Plavix and beta-neris. (4) Insulin dependent type 2 diabetes mellitus: Code(s): E11.9 - Type 2 diabetes mellitus without complications; Z79.4 - correction (current) use of insulin Status: Acute Assessment and Plan: Continue basal insulin. Initiate sliding scale insulin, Accu-Cheks, and hypoglycemic protocol. Check hemoglobin A1c. (5) Mixed hyperlipidemia: Code(s): E78.2 - Mixed hyperlipidemia Status: Chronic Assessment and Plan: Continue alirocumab. (6) Essential hypertension: Code(s): I10 - Essential (primary) hypertension Status: Acute Assessment and Plan: Blood pressures were reviewed and they are reasonable. Continue antihypertensives and monitor closely. (7) Ischemic cardiomyopathy: Code(s): I25.5 - Ischemic cardiomyopathy Status: Chronic Assessment and Plan: Patient appears euvolemic. (8) Obstructive sleep apnea on CPAP: Code(s): G47.33 - Obstructive sleep apnea (adult) (pediatric); Z99.89 - Dependence on other enabling machines and devices Status: Acute Assessment and Plan: CPAP is available for the patient to use while hospitalized. (9) Hypothyroidism: Code(s): E03.9 - Hypothyroidism, unspecified Status: Acute Assessment and Plan: Continue levothyroxine and check TSH. (10) Chronic kidney disease due to diabetes mellitus: Code(s): E11.22 - Type 2 diabetes mellitus with diabetic chronic kidney disease Status: Acute Assessment and Plan: Creatinine is stable on review of previous labs. Additional Plan 08/26/2021 Will continue current plan of care and treatment. Cardiology on consult. Subjective Date/time seen: 08/26/21 09:08 Patient was seen during the morning rounds today. Mild chest pain, no shortness of breath. No abdominal pain, nausea, no vomiting, mood stable. Review of Systems Review of Systems: All systems reviewed & are unremarkable except as noted in HPI and below (the history and physical examination.) Exam Narrative: General: Well-developed elderly gentleman in the semi-Tapia position. Weight: 76.5 kg. BMI: 24.2. HEENT: Normocephalic, atraumatic. He is wearing corrective lenses. PERRL, EOMI. Sclerae anicteric. Oral mucosa moist. Oropharynx clear. Neck: Supple. No jugular venous distention. Respiratory: Lungs are clear to auscultation bilaterally. Cardiovascular: Regular rate and rhythm with S1-S2. Chest: He has tenderness to palpation on the left lower anterior chest wall. Well-healed sternotomy. Gastrointestinal: Abdomen is soft, nontender, and nondistended with positive bowel sounds. Negative Marinelli sign. No guarding or rebound tenderness.
[2021-08-26 09:36] LABS: Glucose Point of Care 119 mg/dl (65-105)
[2021-08-26] MEDS: predniSONE 10 MG TABLET PO (09:54)
[2021-08-26] MEDS: FEBUXOSTAT 40 MG TABLET PO (09:54)
[2021-08-26] MEDS: ISOSORBIDE MONONITRATE 60 MG TAB.ER.24H PO (09:54)
[2021-08-26] MEDS: PREGABALIN (*CRX) 75 MG CAPSULE 150 MG PO (09:55)
[2021-08-26] MEDS: CYANOCOBALAMIN 1,000 MCG TABLET 3000 MCG PO (09:55)
[2021-08-26] MEDS: CLOPIDOGREL BISULFATE 75 MG TABLET PO (09:55)
[2021-08-26] MEDS: BENZONATATE 100 MG CAPSULE 200 MG PO ×2 (09:55→14:00)
[2021-08-26] MEDS: SODIUM BICARBONATE TAB 650 MG TABLET PO ×2 (09:56→14:01)
[2021-08-26] MEDS: OPTI-GEN TAB 1 TABLET PO (09:56)
[2021-08-26] MEDS: VITAMIN B COMPLEX CAPSULE 1 CAP PO (09:56)
[2021-08-26] MEDS: METOPROLOL SUCCINATE EXT REL 50 MG TABCR PO (09:56)
[2021-08-26] MEDS: POLYSACCHARIDE IRON COMPLEX 150 MG CAPSULE PO (09:57)
[2021-08-26] MEDS: PANTOPRAZOLE 40 MG TABLET PO (09:57)
[2021-08-26] MEDS: oxyCODONE HCL (*CRX) 5 MG TAB IR PO ×2 (09:57→14:01)
--- NOTE | 2021-08-26 13:03 | PM.DS ---
DS: Admitting Diagnosis Discharge Date 08/26/2021 Admitting Diagnosis Chest pain DS: Discharge Diagnosis Discharge Diagnosis (1) Chest pain: Code(s): R07.9 - Chest pain, unspecified Status: Acute Assessment and Plan: He has ruled out for acute coronary syndrome by serial troponins. Given his history and report that his symptoms are similar to those he has experienced with previous MIs, I will ask Dr. Manzanares or 1 of his partners to see him in consultation. The patient does however have some reproducible tenderness to palpation over the left anterior chest wall. Cannot rule out GI etiology given elevated lipase and history of cholecystitis last spring however his abdominal exam is benign at the time my evaluation. (2) Elevated lipase: Code(s): R74.8 - Abnormal levels of other serum enzymes Status: Acute Assessment and Plan: Patient had a right upper quadrant ultrasound and HIDA scan done at the [facility] earlier last week. Records have been requested for review. Abdominal exam is benign thus I do not feel CT is indicated. Will continue to trend lipase. (3) Coronary artery disease: Code(s): I25.10 - Atherosclerotic heart disease of [place] coronary artery without angina pectoris Status: Acute Assessment and Plan: Continue Plavix and beta-neris. (4) Insulin dependent type 2 diabetes mellitus: Code(s): E11.9 - Type 2 diabetes mellitus without complications; Z79.4 - residential (current) use of insulin Status: Acute Assessment and Plan: Continue basal insulin. Initiate sliding scale insulin, Accu-Cheks, and hypoglycemic protocol. Check hemoglobin A1c. (5) Mixed hyperlipidemia: Code(s): E78.2 - Mixed hyperlipidemia Status: Chronic Assessment and Plan: Continue alirocumab. (6) Essential hypertension: Code(s): I10 - Essential (primary) hypertension Status: Acute Assessment and Plan: Blood pressures were reviewed and they are reasonable. Continue antihypertensives and monitor closely. (7) Ischemic cardiomyopathy: Code(s): I25.5 - Ischemic cardiomyopathy Status: Chronic Assessment and Plan: Patient appears euvolemic. (8) Obstructive sleep apnea on CPAP: Code(s): G47.33 - Obstructive sleep apnea (adult) (pediatric); Z99.89 - Dependence on other enabling machines and devices Status: Acute Assessment and Plan: CPAP is available for the patient to use while hospitalized. (9) Hypothyroidism: Code(s): E03.9 - Hypothyroidism, unspecified Status: Acute Assessment and Plan: Continue levothyroxine and check TSH. (10) Chronic kidney disease due to diabetes mellitus: Code(s): E11.22 - Type 2 diabetes mellitus with diabetic chronic kidney disease Status: Acute Assessment and Plan: Creatinine is stable on review of previous labs. DS: Summary Hospital Course Reason for hospitalization: Chest pain Hospital Course: Patient is 81 years old male was admitted complained of chest pain. Patient is at low cardiac enzymes were negative. Patient physical examination normal today. Cardiology saw the patient clear for discharge. Patient was discharged home in stable condition. Follow-up with primary care physician and Cardiology outpatient next week. Time spent discussing smoking cessation with patient: 3 to 10 minutes Status at Discharge Cognitive/behavioral status at discharge: Stable Functional status at discharge: independent ambulation Time Spent with Patient Time attestation: Total time spent providing and/or coordinating discharge services: Time spent: Less than 30 minutes Exam Const: General: cooperative and no acute distress Orientation/consciousness: oriented to person, oriented to place, oriented to time and patient oriented x3 HENMT: Head: normal to inspection Ears: hearing grossly normal bilaterally and external ear
[2021-08-26 13:12] LABS: Glucose Point of Care 187 mg/dl (65-105)
== END 2021-08-26 14:50 | disposition home or self-care (01) ==
LOC: ANHED 14:35 → ANHIMU 08-26 13:02
PROVIDERS: Physician Assistant; Admitting Provider Family Medicine; Emergency Provider Emergency Medicine; PCP Family Medicine; Visit Provider Internal Medicine
DX: R07.9 Chest pain, unspecified (principal); R74.8 Abnormal levels of other serum enzymes; I25.10 Atherosclerotic heart disease of native coronary artery without angina pectoris; R06.00 Dyspnea, unspecified; I25.5 Ischemic cardiomyopathy; I12.9 Hypertensive chronic kidney disease with stage 1 through stage 4 chronic kidney disease, or unspecified chronic kidney disease; E11.22 Type 2 diabetes mellitus with diabetic chronic kidney disease; N18.9 Chronic kidney disease, unspecified; E11.51 Type 2 diabetes mellitus with diabetic peripheral angiopathy without gangrene; E27.1 Primary adrenocortical insufficiency; I25.2 Old myocardial infarction; E03.9 Hypothyroidism, unspecified; E55.9 Vitamin D deficiency, unspecified; I48.0 Paroxysmal atrial fibrillation; E78.2 Mixed hyperlipidemia; G47.33 Obstructive sleep apnea (adult) (pediatric); J44.9 Chronic obstructive pulmonary disease, unspecified; N40.0 Benign prostatic hyperplasia without lower urinary tract symptoms; K21.9 Gastro-esophageal reflux disease without esophagitis; H35.30 Unspecified macular degeneration; Z79.4 Long term (current) use of insulin; Z79.02 Long term (current) use of antithrombotics/antiplatelets; Z95.1 Presence of aortocoronary bypass graft; Z95.5 Presence of coronary angioplasty implant and graft; Z86.16 Personal history of COVID-19; Z86.73 Personal history of transient ischemic attack (TIA), and cerebral infarction without residual deficits; Z98.1 Arthrodesis status
CPT/HCPCS: 36415; 71046; 80053; 82948; 83036; 83690; 84484; 85025; 85380; 85610; 85730; 93005; 99285; A9270; G0378; J7512

== ENCOUNTER 2021-08-27 09:51 | Outpatient (CLI) | payer MEDICARE, OTHER, SELFPAY ==
--- NOTE | ~2021-08-27 | MR_ITS ---
EXAMINATION: MR lumbar spine wo con EXAM DATE: 08/27/2021 11:44 INDICATION: M54.16 - Radiculopathy, lumbar region. TECHNIQUE: Multi-sequential, multiplanar MR images of the lumbar spine were obtained without contrast . Sagittal T1, T2, T2 fat saturation images. Axial T2 weighted images. Comparison is made to prior examination from 11/02/2015. FINDINGS: There is mild thoracolumbar dextroscoliosis. Paraspinal soft tissue is unremarkable. Modera te to severe loss of the L5-S1 disc height, moderate at L4-5, mild to moderate at L1-2. The conus med ullaris terminates at the L1/2 level and has normal signal intensity and morphology. There is 3 mm re trolisthesis L5 on S1 T12. There are some degenerative endplate signal changes L5-S1. There are no s uspicious focal vertebral signal abnormalities identified. Level by level evaluation: T12-L1: Disc does not extend beyond the endplate margin. Facet arthropathy: Mild. Neural foraminal stenosis: No stenosis. Central canal stenosis: No stenosis. L1-L2: There is a mild diffuse disc bulge. Facet arthropathy: Mild to moderate. Neural foraminal stenosis: Mild to moderate right, mild left. Central canal stenosis: Mild. L2-L3: There is a moderate diffuse disc bulge. Facet arthropathy: Moderate . Ligamentum flavum enlargement. Neural foraminal stenosis: Mild to moderate left, mild right. Central canal stenosis: Mild to moderate. L3-L4: There is a mild to moderate diffuse disc bulge. Facet arthropathy: Mild to moderate. Neural foraminal stenosis: Mild to moderate bilateral. Central canal stenosis: Mild. L4-L5: There is a moderate diffuse disc bulge asymmetric to the right Facet arthropathy: Moderate. Neural foraminal stenosis: Moderate left, mild to moderate right. Central canal stenosis: Mild to moderate, right lateral recess narrowing. L5-S1: There is a moderate diffuse disc bulge. Facet arthropathy: Mild to moderate. Neural foraminal stenosis: Moderate to severe right, moderate left. Central canal stenosis: Mild to moderate. In spondylosis compared to 2016. IMPRESSION: 1. Overall moderate lumbar spondylosis as detailed above. Reviewed, dictated and finalized at location A. [employer]
== END 2021-08-27 09:52 | disposition home or self-care (01) ==
LOC: ANHIMG 09:56
PROVIDERS: PCP Family Medicine; Visit Provider Family Medicine
DX: M48.061 Spinal stenosis, lumbar region without neurogenic claudication (principal); M47.26 Other spondylosis with radiculopathy, lumbar region
CPT/HCPCS: 72148

== ENCOUNTER 2021-09-24 11:56 | Inpatient (IN) | payer MEDICARE, OTHER, SELFPAY ==
[2021-09-24] VITALS (24 sets, daily range): BP systolic 117–176; BP diastolic 65–86; PULSE 86–144; RESP 14–24; TEMP 37.9–38.5; O2SAT 97–98; BMI 24.2
--- NOTE | ~2021-09-24 | US_ITS ---
EXAMINATION: US venous doppler [facility] DATE: 09/29/2021 10:41 INDICATION: Deep vein thrombosis. TECHNIQUE: Grayscale ultrasound images without and with compression and Doppler ultrasound images of the bilateral lower extremity veins were obtained. COMPARISON: None. FINDINGS: The visualized portions of right common femoral vein, profunda (deep) femoral vein, femoral vein, pop liteal vein, peroneal veins, posterior tibial veins, and greater saphenous vein outflow are patent. The visualized portions of left common femoral vein, profunda femoral vein, femoral vein, popliteal v ein, peroneal veins, posterior tibial veins, and greater saphenous vein outflow are patent. IMPRESSION: 1. No deep venous thrombosis. Reviewed, dictated and finalized at location A. TAL MARKETING PROGRAM MANAGER
--- NOTE | ~2021-09-24 | XR_ITS ---
EXAMINATION: XR chest 1V portable DATE: 09/24/2021 12:20 INDICATION: Chest pain TECHNIQUE: frontal view of the chest was obtained. COMPARISON: Chest radiograph dated 08/25/2021 FINDINGS: The lungs are clear with no focal airspace opacities, pulmonary edema, pleural effusion or pneumothor ax. The cardiomediastinal silhouette is normal. Median sternotomy wires and mediastinal surgical clip s are seen, likely from prior coronary artery bypass grafting. Coronary artery stenting. Left pectora l implantable manager cardiac. IMPRESSION: 1. No acute cardiopulmonary disease. Reviewed, dictated and finalized at location A. EN PRINTING PASTER
--- NOTE | ~2021-09-24 | CT_ITS ---
EXAMINATION: CT abd pelvis lumbar wo con EXAM DATE: 09/27/2021 08:07 INDICATION: Pain fever . TECHNIQUE: Spiral CT of the abdomen and pelvis, and lumbar spine was performed without contrast . Ax ial, coronal and sagittal images of the abdomen and pelvis were reviewed. Spiral CT of the lumbar sp ine was performed with same injection of contrast. Axial, coronal and sagittal images lumbar spine w ere reviewed. The dose-length product (DLP) for this examination was 446.07 mGy-cm. The exposure w as tailored according to patient size (auto mA exposure control), and iterative reconstruction (ASIR) was used as additional dose reduction technique. Comparison is made to prior examination from 019. FINDINGS: ABDOMEN PELVIS: There is a 1.8 cm splenic hypodensity which was not present or not evident in 2019. M ost splenic lesions are benign. The liver, spleen, adrenal glands and pancreas are otherwise unremar kable. Gallbladder is unremarkable. No biliary obstruction. Punctate right superior calyceal stone . No ureteral stones or obstructive hydronephrosis. The prostate is unremarkable. The bladder is un remarkable. There is no retroperitoneal or pelvic lymphadenopathy. There is moderate scattered art eriosclerotic disease. There are no findings to suggest appendicitis. The stomach and small bowel are unremarkable. There is moderate amount of colonic stool. No free intraperitoneal gas. Sternotomy wires. Cardiac monit oring device. Borderline heart size. Basilar dependent subpleural banding probably subsegmental atel ectasis. Mild basilar bronchiectasis. There are no osteoblastic or osteolytic lesions identified. LUMBAR SPINE: There is no evidence of acute lumbar fracture. There is no disc space widening or trau matic vertebral body subluxation suspected. There are no bony erosions identified. Paraspinal soft tissue is unremarkable. The vertebral bodies are aligned in the AP dimension. There is moderate to se charley L5-S1 disc disease, moderate at L1-2 and L4-5, mild to moderate at L2-3. Mild diffuse loss of ve rtebral body height, without fracture line. Level by level evaluation: T12-L1: There is a mild diffuse disc bulge. Facet arthropathy: Mild. Neural foraminal stenosis: No stenosis. Central canal stenosis: No stenosis. L1-L2: There is a mild diffuse disc bulge. Facet arthropathy: Mild to moderate. Neural foraminal stenosis: Mild to moderate right, mild left. Central canal stenosis: Mild. L2-L3: There is a moderate diffuse disc bulge. Facet arthropathy: Mild to moderate. Neural foraminal stenosis: Moderate left, mild to moderate right. Central canal stenosis: Mild to moderate. L3-L4: There is a moderate diffuse disc bulge. Facet arthropathy: Moderate. Neural foraminal stenosis: Mild to moderate bilateral. Central canal stenosis: Mild to moderate. L4-L5: There is a moderate diffuse disc bulge. Facet arthropathy: Moderate to severe. Neural foraminal stenosis: Moderate to severe left, mild to moderate right. Central canal stenosis: Moderate. L5-S1: There is a moderate diffuse disc bulge. Facet arthropathy: Moderate. Neural foraminal stenosis: Moderate to severe right, moderate left. Central canal stenosis: Mild to moderate. IMPRESSION: 1. Moderate amount of colonic stool. 2. Moderate to severe lumbar spondylosis. 3. Punctate right nephrolithiasis. 4. Basilar subpleural banding. 5. Nonspecific splenic hypodensity, could be granulomatous process or hemangioma. Solitary splenic a bscess, lymphoma, or metastatic disease is rare. Reviewed, dictated and finalized at location B. NER FIXER
--- NOTE | ~2021-09-24 | NM_ITS ---
EXAMINATION: NM bone scan whole body DATE: 09/30/2021 15:02 INDICATION: Fever of unknown origin TECHNIQUE: 25.1 mCi Tc-99m HDP was administered intravenously. Delayed whole-body scintigrams were o btained. COMPARISON: CT abdomen and pelvis dated 09/27/[address] chest dated 10/27/2020 FINDINGS: Mild likely degenerative joint centered uptake at the bilateral acromioclavicular joints. Additional mild likely degenerative uptake at the lower cervical spine. Severe degenerative disc disease evident on CT dated 10/27/2020. Mild uptake along the midline of the sternum corresponding to a prior median sternotomy. No other suspicious foci of abnormal bone uptake to suggest malignancy or osteomyelitis. IMPRESSION: 1. No bone lesions suspicious for malignancy/metastatic disease or osteomyelitis. Reviewed, dictated and finalized at location A. SPRAYER IMPRESSION: 1. No bone lesions suspicious for malignancy/metastatic disease or osteomyeliti s.
--- NOTE | ~2021-09-24 | CT_ITS ---
EXAMINATION:CT diagnostic chest wo con DATE: 09/25/2021 17:12 INDICATION: Fever. Sepsis. TECHNIQUE: Computed tomography (CT) of the chest was performed without intravenous contrast. Automate d exposure control and iterative reconstruction technique were employed. The dose-length product (DLP ) was 201.59 mGy-cm. COMPARISON: Chest CT 10/27/2020 FINDINGS: There is mild scarring at the lung apices. Again seen are scattered mild groundglass opacit ies throughout the lungs with a peripheral predominance. There are chronic subpleural bands in the lo wer lobes. There is mild bronchiectasis in the inferior lungs. No honeycombing. No pleural effusion. There is a stent in proximal left subclavian artery. The heart size is normal. There are coronary art mercedez calcifications. No pericardial effusion. There are changes of coronary artery bypass grafting. Ca lcifications in the spleen are consistent with old granulomatous disease. There is mild thoracic spon dylosis. There is mild chronic anterior wedging of multiple vertebral bodies. There is severe cervica l spondylosis. IMPRESSION: 1. Stable chronic interstitial lung disease in a pattern of nonspecific interstitial pneumonia (NSIP) . Reviewed, dictated and finalized at location E. OSURGICAL NURSE IMPRESSION: 1. Stable chronic interstitial lung disease in a pattern of nonspecific interst itial pneumonia (NSIP).
--- NOTE | ~2021-09-24 | XR_ITS ---
EXAMINATION: XR chest 1V portable DATE: 09/27/2021 06:42 INDICATION: Fever TECHNIQUE: frontal view of the chest was obtained. COMPARISON: Chest radiograph dated 09/24/2021 FINDINGS: Unchanged mild linear discoid atelectasis in the right mid and lower lung zones. No pulmonary edema, pleural effusion or pneumothorax. The cardiomediastinal silhouette is normal. Median sternotomy wires and mediastinal surgical clips are seen, likely from prior coronary artery bypass grafting. Coronary artery stenting. Left pectoral implantable cardiac catheterization technician. IMPRESSION: 1. Unchanged mild linear discoid atelectasis in the right mid and lower lung zones. Reviewed, dictated and finalized at location A. ICULTURAL WORKER IMPRESSION: 1. Unchanged mild linear discoid atelectasis in the right mid and lower lung zo leon.
--- NOTE | ~2021-09-24 | US_ITS ---
EXAMINATION: US abdomen limited DATE: 09/25/2021 18:38 INDICATION: Fever. Cholecystitis. TECHNIQUE: Multiple grayscale and Doppler ultrasound images of the abdomen were obtained. COMPARISON: CT abdomen and pelvis 12/10/2018, chest CT 09/25/2021 FINDINGS: The visualized portion of the head of the pancreas is normal. The liver is normal without f ocal lesion. There is normal flow in main portal vein. The gallbladder is normal in size. No gallston es. Gallbladder wall thickening is noted. There was no sonographic Marinelli sign. The common duct is no rmal and measures 3 mm. IMPRESSION: 1. Gallbladder wall thickening, which may be seen with chronic cholecystitis, chronic liver disease, or interstitial edema. Reviewed, dictated and finalized at location A. ASSOCIATE IMPRESSION: 1. Gallbladder wall thickening, which may be seen with chronic cholecystitis, c hronic liver disease, or interstitial edema.
--- NOTE | ~2021-09-24 | XR_ITS ---
EXAMINATION: XR shoulder RT min 2V INDICATION: Right shoulder pain TECHNIQUE: Four views of the right shoulder are submitted. COMPARISON: 03/07/2019 FINDINGS: There is mild cranial migration of the humeral head, consistent with rotator cuff tear. The re is severe acromioclavicular osteoarthritis and mild glenohumeral osteoarthritis. There is no fract ure. Soft tissues are unremarkable. IMPRESSION: 1. No acute osseous abnormality. Reviewed, dictated and finalized at location F. NESS PROCESS EXPERT
--- NOTE | 2021-09-24 12:02 | ECG_ITS ---
Measurements Intervals Spring Rate: 113 P: 21 WV: 183 QRS: 9 QRSD: 93 T: 47 QT: 339 QTc: 466 Interpretive Statements SINUS TACHYCARDIA LOW QRS VOLTAGE IN PRECORDIAL LEADS POOR R WAVE PROGRESSION, ANTERIOR LEADS BASELINE ARTIFACT- I, II, III, AVR, AVL, AVF, V1-V6 ABNORMAL ECG Electronically Signed On 09-24-2021 12:20:06 MATERIALS INTERN by James Sanchez D.O.
--- NOTE | 2021-09-24 12:16 | ED.GENADULT ---
HPI - General Adult General Chief complaint: Arrhythmia/Palpitations Stated complaint: Low blood pressure, high HR Time Seen by Provider: 09/24/21 12:15 Source: RN notes reviewed History of Present Illness HPI narrative: Patient presents emergency department from home for rapid heart rate. Patient states for the past 2 weeks has been having rapid heart rate as well as fluctuating blood pressures that have been running low in the 80s and 90s systolically. States that these episodes been going on for the past 2 weeks since he had a stent placed at the [facility] he currently is followed by both Dr. Spence as well as cardiology at the [facility] as he is in the process of moving over he states he was taken off his metoprolol by his [facility] physician approximately a week ago patient states that he has been having some intermittent left upper chest pain that is very short lasting proximally 1 second and sharp and stabbing and resolved starting this morning denies any fevers or chills shortness of breath or any other sign Related Data Home Medications Medication Instructions Recorded Confirmed febuxostat 40 mg tablet 40 mg PO DAILY 07/20/19 08/25/21 nitroglycerin 0.4 mg sublingual 0.4 mg SUBLINGUAL Q5M PRN 07/20/19 08/25/21 tablet pantoprazole 40 mg tablet,delayed 40 mg PO QAM 07/20/19 08/25/21 release polymyxin B sulfate 10,000 2 drop OPHTHALMIC (EYE) ONCE ml 12/13/19 08/25/21 unit-trimethoprim 1 mg/mL eye drops PreserVision AREDS-2 1 tablet PO BID 05/25/20 08/25/21 insulin aspart U-100 [Novolog 1 sliding scale dose SUBCUT 05/25/20 08/25/21 U-100 Insulin aspart] USEASDIRECTD insulin glargine 34 unit SUBCUT HS 05/25/20 08/25/21 vitamin B complex [B 1 tablet PO DAILY 05/25/20 08/25/21 Complex-Vitamin B12] triamcinolone acetonide 1 applic TOPICAL BID PRN 07/17/20 08/25/21 clopidogrel 75 mg PO DAILY 10/27/20 08/25/21 alirocumab 75 mg/mL subcutaneous 75 mg SUBCUT ONCE 07/16/21 08/25/21 pen injector benzonatate 200 mg capsule 200 mg PO TID 07/16/21 08/25/21 sodium bicarbonate 650 mg tablet 650 mg PO QID 07/16/21 08/25/21 trazodone 50 mg tablet 25 mg PO QHS 07/16/21 08/25/21 Allergies Allergy/AdvReac Type Severity Reaction Status Date / Time Mcuxwpj-GWH-ApW Reductase Allergy Unknown Muscle Verified 08/25/21 12:04 Inhibitor Twitching [Cyxvevf-Brs-Gpd Reductase Inhibitor] zolpidem Allergy Unknown Mental Verified 08/25/21 12:04 Status change Review of Systems Review of Systems: Gen.: Denies fevers or chills ENT: Denies congestion Respiratory: Denies shortness of breath or cough CV: See HPI GI: Denies abdominal pain nausea, emesis or diarrhea denies burning, urgency, frequency or hematuria Musculoskeletal: Denies back pain or muscle pain Neuro: Denies numbness, tingling, weakness or focal weakness Skin: Denies rash Except as documented, all other systems reviewed and negative PMFSH Past Medical History Medical History Adrenal insufficiency (Blaine's disease) Anemia Benign prostatic hyperplasia Cerebrovascular accident (2018) Chronic kidney disease due to diabetes mellitus Chronic obstructive pulmonary disease, unspecified Coronary artery disease History of multiple stents and CABG. COVID-19 Degenerative disc disease Essential hypertension Gastroesophageal reflux disease GI bleed (11/2018) Presumed to be diverticular in origin. Gout Hypothyroidism Insulin dependent type 2 diabetes mellitus Ischemic cardiomyopathy Macular degeneration Mixed hyperlipidemia Myocardial infarction Obstructive sleep apnea on CPAP Osteoarthritis Paroxysmal atrial fibrillation Peptic ulcer Peripheral vascular disease due to secondary diabetes Vitamin D deficiency Surgical History Surgical History (Updated 08/25/21 @ 23:35 by Renata Gudino PA-C) History of appendectomy (1962) History of bilateral cataract extraction History of cardiac catheterization 2011, 201
[2021-09-24 12:25] LABS: Basophils Percent Auto 0.3 % (0.2-1.2); Eosinophils Absolute Auto 0.3 K/mm3 (0-0.3); Eosinophils Percent Auto 6.5 % (0-4.4); Hematocrit 36.4 % (42.0-52.0); Hemoglobin 12.4 g/dL (14.0-18.0); Immature Granulocyte Absolute 0.02 K/mm3 (0.00-0.031); Immature Granulocyte Percent A 0.5 % (0-0.5); Lymphocytes Absolute Auto 0.91 K/mm3 (0.9-3.2); Lymphocytes Percent Auto 22.8 % (18.3-44.2); Mean Corpuscular HGB Conc 34.1 g/dl (32-36); Mean Platelet Volume 9.4 fl (7.4-10.4); Monocytes Absolute Auto 0.7 K/mm3 (0.1-0.6); Monocytes Percent Auto 16.5 % (2.6-8.5); Neutrophils Absolute Auto 2.1 K/mm3 (1.3-6.7); Neutrophils Percent Auto 53.4 % (45.5-73.1); Platelet Count Result 194 k/mm3 (150-375); Red Cell Distribution Width 13.5 % (11.5-14.5)
[2021-09-24 12:39] LABS: INR 1.1; Prothrombin Time 13.8 Seconds (11.1-14.7)
[2021-09-24 12:40] LABS: Partial Thromboplastin Time 36.8 SECONDS (22.3-36.8)
[2021-09-24 12:42] LABS: Alanine Aminotransferase 20 U/L (4-50); Albumin Level 4.3 g/dL (3.5-5.1); Alkaline Phosphatase 99 U/L (38-126); Anion Gap 10 mmol/L (8-16); Aspartate Amino Transferase 25 U/L (17-59); Bilirubin,Total 0.6 mg/dL (0.2-1.3); Blood Urea Nitrogen 21 mg/dL (9-20); Calcium 9.2 mg/dL (8.4-10.2); Carbon Dioxide 25 mmol/L (22-30); Chloride 94 mmol/L (98-107); Estimated CRCL calculation 29 ml/min; Estimated Glomerular Filt Rate 34; Glucose 195 mg/dL (65-110); Lipase 260 U/L (23-300); Sodium 129 mmol/L (137-145)
[2021-09-24 13:11] LABS: NT Pro B Type Natriuretic Pept 641 pg/mL (5-100); Troponin I 0.041 ng/mL (0.000-0.034)
[2021-09-24] MEDS: ASPIRIN 81 MG CHEWABLE TABLET 324 MG PO (13:48)
--- NOTE | 2021-09-24 15:20 | PM.IMHP ---
H&P: HPI History of Present Illness Date/Time: 09/24/21 15:20 Chief Complaint: Low blood pressure and high pulse. Narrative: This is a pleasant 81-year-old male with coronary artery disease with history of stents and bypass, hypertension, dyslipidemia, insulin-dependent type 2 diabetes mellitus, chronic kidney disease, paroxysmal atrial fibrillation, and several other comorbidities who presented to the emergency department for evaluation of low blood pressure, high heart rate and chest pain. It is not unusual for him to have intermittent chest discomfort with activity and that has typically been nitrate responsive. He was recently admitted here overnight on 08/25/2021 with chest pain at which time we learned that he was taken off of his isosorbide for unclear reasons. He ruled out for acute coronary syndrome and wished to follow-up with his preventive medicine specialist [facility]. Isosorbide was resumed on discharge. Per patient report, he continued to have chest pain and he had a cardiac catheterization with stent placement on 09/13/2021 at the [facility]. Since that time he has been experiencing low blood pressures with feelings of lightheadedness and dizziness and reportedly he was instructed to stop taking his isosorbide and metoprolol approximately 1 week ago. He has been diligent about monitoring his vital signs since that time and produces a log today. It is noted that his baseline heart rate is typically between the 70s to low 80s however since stopping metoprolol it has been in the 100s up to 120s. Blood pressures have also been low and he reports a reading of 60s/40s this morning, prompting the visit today. He also continues to have intermittent left anterior chest pain. Since arrival, his blood pressures have been stable between 118 and 149 systolic. He is also mildly tachycardic in the 90s to low 120s. His blood pressure cuff has been checked at the [facility] recently and readings have reportedly been comparable. Of note the patient's chart lists a history of adrenal insufficiency though the patient denies this diagnosis. He was recently on a 2 to 3 week prednisone taper for sciatica though he states compliance with the taper and he finished that several weeks ago. Review of Systems Review of Systems: Twelve systems were reviewed. No fever, chills, or sweats. No sinus congestion, rhinorrhea, otalgia, or odynophagia. He denies pleuritic pain. No nausea, vomiting, or diarrhea. No dysuria. He has not had any falls but reports feeling ?wobbly.? Except as documented, all other systems were reviewed and are negative. [facility] Past Medical History Medical History (Updated 09/24/21 @ 22:27 by Renata Gudino PA-C) Adrenal insufficiency (Benzie's disease) Poorly documented, patient denies. Anemia Benign prostatic hyperplasia Cerebrovascular accident (2019) Chronic kidney disease due to diabetes mellitus Chronic obstructive pulmonary disease, unspecified Coronary artery disease History of multiple stents and CABG. COVID-19 Degenerative disc disease Essential hypertension Gastroesophageal reflux disease GI bleed (11/2018) Presumed to be diverticular in origin. Gout Hypothyroidism Insulin dependent type 2 diabetes mellitus Ischemic cardiomyopathy Macular degeneration Mixed hyperlipidemia Myocardial infarction Obstructive sleep apnea on CPAP Osteoarthritis Paroxysmal atrial fibrillation Peptic ulcer Peripheral vascular disease due to secondary diabetes Vitamin D deficiency Surgical History Surgical History (Updated 09/24/21 @ 22:24 by Renata Gudino PA-C) History of appendectomy (1962) History of bilateral cataract extraction History of cardiac catheterization Multiple over the years History of colonoscopy with polypectomy History of coronary artery bypass graft x 3 (01/2018) MOHAMUD graft to LAD and vein graft to OM1 and OM3. Done at [facility]. History of fusion of cervical spine History of heart artery stent History of loop recorder History of lumbar dis
--- NOTE | 2021-09-24 16:02 | PC.NURSE ---
This patient, Freddy Ferguson, was admitted to IMU Room 210-01. Patient/family oriented to hospital policies and general routines including ID bracelet, bed and alarms, visiting hours, pain management, procedures, bathroom and other care routines, personal items, smoking policy, room service/diet, and visiting hours. Information on how to activate the Rapid Response Team has been discussed. Patient/Family are encouraged to report perceived risks to care and to ask questions if they do not understand what they are told or what they should do.
[2021-09-24 16:15] LABS: Magnesium 2.1 mg/dL (1.6-2.3)
[2021-09-24 16:35] LABS: Troponin I 0.047 ng/mL (0.000-0.034)
[2021-09-24 17:45] LABS: Cortisol Random 5.97 ug/dL
[2021-09-24 20:40] LABS: Troponin I 0.055 ng/mL (0.000-0.034)
[2021-09-24] MEDS: SODIUM CHLORIDE 0.9% IV 1,000 ML 999 ML IV CONT (23:31)
[2021-09-24] MEDS: ACETAMINOPHEN 325 MG TABLET 650 MG PO (23:32)
[2021-09-24 23:40] LABS: Add Urine Microscopic? YES; Appearance Urine Clear (Clear); Bilirubin Urine Negative (Negative); Blood Urine Negative (Negative); Color Urine Yellow (Yellow); Glucose Urine UA Negative (Negative); Ketones Urine Negative (Negative); Leukocyte Esterase Ur Negative LEU/UL (Negative); Nitrate Urine Negative (Negative); Protein Urine Negative (Negative); Specific Grav Ur 1.006 (1.001-1.035); Urobilinogen Urine Negative mg/dL (<2.0)
[2021-09-24 23:54] LABS: Creatinine Urine 55.5 mg/dL
[2021-09-24 23:56] LABS: Influenza A QL RT-PCR Negative (Negative); Influenza B QL RT-PCR Negative (Negative); SARS-CoV-2 RNA PCR Negative
[2021-09-24 23:58] LABS: Sodium Urine Random 76 meq/L
[2021-09-25] VITALS (20 sets, daily range): BP systolic 96–163; BP diastolic 57–87; PULSE 73–124; RESP 16–22; TEMP 36.7–39.4; O2SAT 94–100
--- NOTE | 2021-09-25 | ECHO_ITS ---
Patient Info Name: Freddy Ferguson Age: 81 years : 1940 Gender: Male Ht: 70 in Wt: 170 lbs BSA: 1.96 m2 HR: 95 bpm BP: 128 / 72 mmHg Heart Rhythm: Sinus Rhythm, Tachycardia Technical Quality: Fair Exam Date: 09/25/2021 1:49 PM Exam Location: [facility] Patient Status: Outpatient Admit Date: 09/24/2021 Staff Ordering Physician: Raj Lau MD Differential Repairer: Paloma Mota RDCS Attending Provider: Mey Mclaughlin MD Referring Physician: Judi RANKIN; Exam Type: CA echo doppler color flow Study Info Indications - cad, hypotension Complete two-dimensional, color flow and Doppler transthoracic echocardiogram is performed. Summary 1. Complete two-dimensional, color flow and Doppler transthoracic echocardiogram is performed. 2. Left ventricular chamber dimension is normal. 3. Left ventricular systolic function is normal, estimated at 65-70%. 4. There is mildly increased left ventricular wall thickness. 5. The left ventricular diastolic function is grade I diastolic dysfunction. 6. Left atrial chamber dimension is mildly enlarged. 7. There is mild aortic valve calcification. 8. There is moderate aortic valve sclerosis. 9. The mitral valve annulus is mildly calcified. 10. There is mild mitral valve regurgitation. 11. There is mild tricuspid valve regurgitation. Left Ventricle Left ventricular chamber dimension is normal. Left ventricular systolic function is normal, estimated at 65-70%. There is mildly increased left ventricular wall thickness. The left ventricular diastolic function is grade I diastolic dysfunction. Right Ventricle Right ventricular chamber dimension is normal. Right ventricular systolic function is normal. Left Atria Left atrial chamber dimension is mildly enlarged. Right Atria Right atrial chamber dimension is normal. Atrial Septum Intact interatrial septum visualized by color flow imaging. Aortic Valve The aortic valve is trileaflet. There is moderate aortic valve sclerosis. There is no aortic valve stenosis. There is trace aortic valve regurgitation. There is mild aortic valve calcification. Pulmonic Valve The pulmonic valve is normal. There is no pulmonic valve stenosis. There is trace pulmonic regurgitation. Mitral Valve There is no mitral valve stenosis. There is mild mitral valve regurgitation. The mitral valve annulus is mildly calcified. Tricuspid Valve The tricuspid valve leaflets are normal. There is no significant tricuspid valve stenosis. There is mild tricuspid valve regurgitation. No pulmonary hypertension, estimated pulmonary arterial systolic pressure is 28 mmHg. Pericardium/Pleural The pericardium appears normal. There is no pericardial effusion. Inferior Vena Cava Normal inferior vena cava with >50% collapse upon inspiration consistent with elevated right atrial pressure, 10 mmHg. Aorta The aortic root size at the sinus of Valsalva is normal. Left Ventricular Outflow Tract Name Value Normal LVOT 2D LVOT Diameter 2.1 cm LVOT Doppler LVOT Peak Gradient 5 mmHg
[2021-09-25 00:21] LABS: Lactic Acid Reflex 1.2 mmol/L (0.7-2.1)
[2021-09-25 00:25] LABS: CRP 6.1 mg/dL (<1.0); Lactate Dehydrogenase 535 U/L (313-618)
[2021-09-25] MEDS: SODIUM CHLORIDE 0.9% IV 1,000 ML 100 ML IV CONT (00:56)
[2021-09-25] MEDS: oxyCODONE HCL (*CRX) 5 MG TAB IR PO ×4 (02:30→22:28)
[2021-09-25 05:18] LABS: Basophils Percent Auto 0.3 % (0.2-1.2); Eosinophils Absolute Auto 0.3 K/mm3 (0-0.3); Eosinophils Percent Auto 8.1 % (0-4.4); Hematocrit 29.8 % (42.0-52.0); Hemoglobin 10.2 g/dL (14.0-18.0); Immature Granulocyte Absolute 0.02 K/mm3 (0.00-0.031); Immature Granulocyte Percent A 0.5 % (0-0.5); Lymphocytes Absolute Auto 0.93 K/mm3 (0.9-3.2); Lymphocytes Percent Auto 24.3 % (18.3-44.2); Mean Corpuscular HGB Conc 34.2 g/dl (32-36); Mean Corpuscular Hemoglobin 30.4 pg (26-34); Mean Platelet Volume 9.6 fl (7.4-10.4); Monocytes Absolute Auto 0.7 K/mm3 (0.1-0.6); Monocytes Percent Auto 19.4 % (2.6-8.5); Neutrophils Absolute Auto 1.8 K/mm3 (1.3-6.7); Neutrophils Percent Auto 47.4 % (45.5-73.1); Platelet Count Result 192 k/mm3 (150-375); Red Blood Count 3.35 M/mm3 (4.6-6.20); Red Cell Distribution Width 13.3 % (11.5-14.5); White Blood Count 3.8 K/mm3 (4.5-10.0)
[2021-09-25 05:35] LABS: Anion Gap 5 mmol/L (8-16); Blood Urea Nitrogen 18 mg/dL (9-20); Calcium 8.3 mg/dL (8.4-10.2); Carbon Dioxide 24 mmol/L (22-30); Chloride 101 mmol/L (98-107); Estimated CRCL calculation 32 ml/min; Estimated Glomerular Filt Rate 39; Glucose 121 mg/dL (65-110); Magnesium 1.9 mg/dL (1.6-2.3); Potassium 4.2 mmol/L (3.4-5.0); Sodium 130 mmol/L (137-145)
[2021-09-25 06:00] LABS: Cortisol Random 4.99 ug/dL
[2021-09-25] MEDS: POLYMYXIN/TRIMETHOPRIM OPHTH 10 ML DROPS 1 DROP EACH EYE ×5 (06:40→21:19)
[2021-09-25] MEDS: LEVOTHYROXINE SODIUM 25 MCG TABLET PO (06:42)
[2021-09-25 09:10] LABS: Glucose Point of Care 122 mg/dl (65-105)
[2021-09-25 10:06] LABS: Hemoglobin A1C 6.6 % (<5.7)
[2021-09-25] MEDS: PREGABALIN (*CRX) 75 MG CAPSULE 150 MG PO ×2 (10:14→19:29)
[2021-09-25] MEDS: CYANOCOBALAMIN 1,000 MCG TABLET 3000 MCG PO (10:16)
[2021-09-25] MEDS: METOPROLOL TARTRATE 25 MG TABLET PO ×2 (10:16→21:19)
[2021-09-25] MEDS: VITAMIN B COMPLEX CAPSULE 1 CAP PO (10:17)
[2021-09-25] MEDS: FEBUXOSTAT 40 MG TABLET PO (10:18)
[2021-09-25] MEDS: SODIUM BICARBONATE TAB 650 MG TABLET PO ×3 (10:18→18:30)
[2021-09-25] MEDS: POLYSACCHARIDE IRON COMPLEX 150 MG CAPSULE PO (10:18)
[2021-09-25] MEDS: CLOPIDOGREL BISULFATE 75 MG TABLET PO (10:18)
[2021-09-25] MEDS: ASPIRIN 81 MG ENTERIC TABLET PO (10:18)
[2021-09-25] MEDS: BENZONATATE 100 MG CAPSULE 200 MG PO ×3 (10:18→18:30)
[2021-09-25] MEDS: ERGOCALCIFEROL 50,000 UNIT CAPSULE 50000 UNITS PO (10:18)
[2021-09-25] MEDS: OPTI-GEN TAB 1 TABLET PO ×2 (10:19→18:30)
[2021-09-25] MEDS: CLINDAMYCIN PHOS 1% 30 GM GEL 1 APPLIC TOPICAL (10:20)
[2021-09-25] MEDS: polyethylene glycoL 3350 17 GM POWD.PACK PO (10:20)
[2021-09-25] MEDS: MICONAZOLE NITRATE 2% CREAM 30 GM TUBE 1 APPLIC TOPICAL (10:20)
--- NOTE | 2021-09-25 10:45 | PM.IMPN ---
Progress Note: A&P Assessment and Plan (1) Hyponatremia: Code(s): E87.1 - Hypo-osmolality and hyponatremia Status: Acute (2) Low blood pressure reading: Code(s): R03.1 - Nonspecific low blood-pressure reading Status: Acute (3) Sinus tachycardia: Code(s): R00.0 - Tachycardia, unspecified Status: Acute (4) Type 2 diabetes mellitus with other diabetic kidney complication: Code(s): E11.29 - Type 2 diabetes mellitus with other diabetic kidney complication Status: Chronic (5) Presence of aortocoronary bypass graft: Onset Date: 05/11/18 Code(s): Z95.1 - Presence of aortocoronary bypass graft Status: Chronic (6) OAB (overactive bladder): Code(s): N32.81 - Overactive bladder Status: Chronic (7) Mixed hyperlipidemia due to type 2 diabetes mellitus: Code(s): E11.69 - Type 2 diabetes mellitus with other specified complication; E78.2 - Mixed hyperlipidemia Status: Chronic (8) Chronic kidney disease, stage 3 (moderate): Onset Date: 03/08/19 Qualifiers: Chronic kidney disease stage 3 subtype: stage 3b (GFR 30-44) Qualified Code(s): N18.32 - Chronic kidney disease, stage 3b Code(s): N18.3 - Chronic kidney disease, stage 3 (moderate) Status: Chronic (9) Gastro-esophageal reflux disease without esophagitis: Onset Date: 03/08/19 Code(s): K21.9 - Gastro-esophageal reflux disease without esophagitis Status: Chronic (10) Diabetic peripheral neuropathy: Code(s): E11.42 - Type 2 diabetes mellitus with diabetic polyneuropathy Status: Chronic (11) Chronic gout, unspecified, without tophus (tophi): Code(s): M1A.9XX0 - Chronic gout, unspecified, without tophus (tophi) Status: Chronic (12) Mixed hyperlipidemia: Code(s): E78.2 - Mixed hyperlipidemia Status: Chronic (13) Chronic obstructive pulmonary disease, unspecified: Qualifiers: COPD type: unspecified COPD Qualified Code(s): J44.9 - Chronic obstructive pulmonary disease, unspecified Code(s): J44.9 - Chronic obstructive pulmonary disease, unspecified Status: Chronic (14) Ischemic cardiomyopathy: Code(s): I25.5 - Ischemic cardiomyopathy Status: Chronic (15) Anemia: Code(s): D64.9 - Anemia, unspecified Status: Acute (16) Obstructive sleep apnea on CPAP: Code(s): G47.33 - Obstructive sleep apnea (adult) (pediatric); Z99.89 - Dependence on other enabling machines and devices Status: Acute (17) Paroxysmal atrial fibrillation: Code(s): I48.0 - Paroxysmal atrial fibrillation Status: Acute (18) Essential hypertension: Code(s): I10 - Essential (primary) hypertension Status: Acute (19) Hypothyroidism: Code(s): E03.9 - Hypothyroidism, unspecified Status: Acute (20) Coronary artery disease: Code(s): I25.10 - Atherosclerotic heart disease of [place] coronary artery without angina pectoris Status: Acute (21) KHAI (obstructive sleep apnea): Code(s): G47.33 - Obstructive sleep apnea (adult) (pediatric) Status: Acute (22) Pulmonary fibrosis: Code(s): J84.10 - Pulmonary fibrosis, unspecified Status: Acute (23) Essential (primary) hypertension: Code(s): I10 - Essential (primary) hypertension Status: Chronic (24) CAD (coronary artery disease): Qualifiers: Associated angina: with unspecified angina Coronary Disease-Associated Artery/Lesion type: bypass graft [place] vs. transplanted heart: [place] heart Qualified Code(s): I25.709 - Atherosclerosis of coronary artery bypass graft(s), unspecified, with unspecified angina pectoris Code(s): I25.10 - Atherosclerotic heart disease of [place] coronary artery without angina pectoris Status: Chronic (25) Hypothyroidism (acquired): Code(s): E03.9 - Hypothyroidism, unspecified Status: Chronic (2
--- NOTE | 2021-09-25 11:25 | PM.CNCAR ---
Assessment and Plan Assessment and plan (1) Elevated troponin: Code(s): R77.8 - Other specified abnormalities of plasma proteins Status: Acute Assessment and Plan: I do not think that his troponins represent a acute coronary syndrome. There are flat and likely related to renal function. His chest pain is noncardiac in my opinion. (2) Sinus tachycardia: Code(s): R00.0 - Tachycardia, unspecified Status: Acute Assessment and Plan: Likely from beta-neris withdrawal. Will resume low-dose metoprolol tartrate 12.5 mg p.o. b.i.d. starting now. 2D echocardiogram Doppler will be ordered and reviewed. (3) Chest pain: Code(s): R07.9 - Chest pain, unspecified Status: Acute Assessment and Plan: Atypical and probably noncardiac (4) Ischemic cardiomyopathy: Code(s): I25.5 - Ischemic cardiomyopathy Status: Chronic Assessment and Plan: Will repeat a 2D echocardiogram with Doppler to evaluate his ejection fraction, tachycardia, chest pain (5) Paroxysmal atrial fibrillation: Code(s): I48.0 - Paroxysmal atrial fibrillation Status: Acute (6) Coronary artery disease: Code(s): I25.10 - Atherosclerotic heart disease of [place] coronary artery without angina pectoris Status: Acute Assessment and Plan: Recent PCI. Continue dual anti-platelet therapy. (7) Hypotension: Code(s): I95.9 - Hypotension, unspecified Status: Acute Assessment and Plan: Significant hypotension at home. Currently improved. I wonder if some of his issues are not related to orthostasis. Will reduce his tamsulosin 0.4 mg daily. Check orthostatics. He can be moved off IMU History of Present Illness History of Present Illness Consult date/time: 09/25/21 11:25 Requesting physician: Freddy Hummel DO Consult reason: chest pain and Other (Tachycardia) Reason For Visit: Sinus tachycardia/atypical chest pain/elevated tro Narrative: Reason consultation: Tachycardia, hypotension, dizziness elevated troponin CAD, chest pain Requesting provider: Dr. Hummel Date of service 09/25/2021 History patient is an 81-year-old male who now has his cardiac care performed at the [facility]. His history of CAD and stents as well as bypass surgery. He was here in this hospital in August and followed up at the [facility]. He had another stent placed in August of 2021. Chest pain has not significantly changed or gotten better. Certainly his chest pain has not gone away. There has been some adjustments to his medications recently including stopping isosorbide as well as metoprolol due to low blood pressure. Patient was having some issues with lightheadedness and dizziness as well as low blood pressure and was told to stop the [facility]. Heart rate subsequently increased significantly. Blood pressures have remained low. Came to hospital for further workup evaluation. He also complains of some very atypical nonexertional chest pain which starts on the left side of his chest and goes to the right side of his chest. Will last for only a few seconds and then go away spontaneously. He denies any syncope, paroxysmal nocturnal dyspnea, orthopnea, unusual edema or palpitations. Review of Systems Review of Systems: All systems reviewed & are unremarkable except as noted in HPI and below Constitutional: Constitutional: Reports weakness Eyes: Eyes: Denies blurry vision ENT: Denies Normal hearing present Cardiovascular: Cardiovascular: Reports chest pain and Reports pedal edema Respiratory: Respiratory: Denies dyspnea Gastrointestinal: Gastrointestinal: Denies abdominal pain Genitourinary: Genitourinary: Denies dysuria and Denies urinary frequency Musculoskeletal: Musculoskeletal: Denies back pain and Denies neck pain Integumentary/Breasts: Skin/Breast: Denies dry skin and Denies unusual bruising Neurologic: Denies headache(s) Psychiatric: Psychiatric
[2021-09-25 12:04] LABS: Glucose Point of Care 153 mg/dl (65-105)
[2021-09-25] MEDS: ACETAMINOPHEN 325 MG TABLET 650 MG PO (14:40)
--- NOTE | 2021-09-25 16:15 | PC.NURSE ---
Notified by Dr. Mclaughlin to obtain STAT blood cultures if patient spikes a fever greater than 100.4. Patients oral temp is 102.9. repeated oral temp and the reading was the same. Order was placed for STAT blood cultures. Prior to starting Antibiotics.
[2021-09-25 17:19] LABS: Glucose Point of Care 183 mg/dl (65-105)
[2021-09-25] MEDS: metroNIDAZOLE 500 MG/ISO 100ML 500 MG/100 ML BAG 100 MG IVPB (21:09)
[2021-09-25] MEDS: TAMSULOSIN HCL 0.4 MG CAPSULE PO (21:18)
[2021-09-25] MEDS: traZODone HCL 50 MG TABLET PO (21:18)
[2021-09-25 21:39] LABS: Glucose Point of Care 119 mg/dl (65-105)
[2021-09-25] MEDS: INSULIN GLARGINE (*BKC) 100 UNITS/ML 10 UNITS SUB-Q (22:29)
[2021-09-26] VITALS (17 sets, daily range): BP systolic 90–137; BP diastolic 54–77; PULSE 75–109; RESP 16–20; TEMP 36.6–37.4; O2SAT 92–100
[2021-09-26] MEDS: metroNIDAZOLE 500 MG/ISO 100ML 500 MG/100 ML BAG 100 MG IVPB ×4 (01:16→18:31)
[2021-09-26] MEDS: oxyCODONE HCL (*CRX) 5 MG TAB IR PO ×4 (05:21→19:50)
[2021-09-26] MEDS: POLYMYXIN/TRIMETHOPRIM OPHTH 10 ML DROPS 1 DROP EACH EYE ×4 (05:21→18:42)
[2021-09-26 05:41] LABS: Estimated CRCL calculation 32 ml/min; Estimated Glomerular Filt Rate 39
[2021-09-26] MEDS: LEVOTHYROXINE SODIUM 25 MCG TABLET PO (06:30)
[2021-09-26] MEDS: POLYSACCHARIDE IRON COMPLEX 150 MG CAPSULE PO (08:47)
[2021-09-26] MEDS: ASPIRIN 81 MG ENTERIC TABLET PO (08:48)
[2021-09-26] MEDS: CLOPIDOGREL BISULFATE 75 MG TABLET PO (08:48)
[2021-09-26] MEDS: BENZONATATE 100 MG CAPSULE 200 MG PO ×3 (08:48→18:24)
[2021-09-26] MEDS: CYANOCOBALAMIN 1,000 MCG TABLET 3000 MCG PO (08:49)
[2021-09-26] MEDS: CLINDAMYCIN PHOS 1% 30 GM GEL 1 APPLIC TOPICAL (08:49)
[2021-09-26] MEDS: FEBUXOSTAT 40 MG TABLET PO (08:50)
[2021-09-26] MEDS: METOPROLOL TARTRATE 25 MG TABLET PO ×2 (08:50→20:01)
[2021-09-26] MEDS: OPTI-GEN TAB 1 TABLET PO ×2 (08:51→18:25)
[2021-09-26] MEDS: polyethylene glycoL 3350 17 GM POWD.PACK PO (08:51)
[2021-09-26] MEDS: MICONAZOLE NITRATE 2% CREAM 30 GM TUBE 1 APPLIC TOPICAL (08:51)
[2021-09-26] MEDS: SODIUM BICARBONATE TAB 650 MG TABLET PO ×3 (08:52→18:25)
[2021-09-26] MEDS: VITAMIN B COMPLEX CAPSULE 1 CAP PO (08:52)
[2021-09-26 08:53] LABS: Glucose Point of Care 128 mg/dl (65-105)
[2021-09-26] MEDS: PREGABALIN (*CRX) 75 MG CAPSULE 150 MG PO ×2 (09:00→18:30)
[2021-09-26 10:32] LABS: Basophils Percent Auto 0.2 % (0.2-1.2); Eosinophils Absolute Auto 0.3 K/mm3 (0-0.3); Eosinophils Percent Auto 5.8 % (0-4.4); Hematocrit 36.5 % (42.0-52.0); Hemoglobin 12.2 g/dL (14.0-18.0); Immature Granulocyte Absolute 0.02 K/mm3 (0.00-0.031); Immature Granulocyte Percent A 0.5 % (0-0.5); Lymphocytes Absolute Auto 0.72 K/mm3 (0.9-3.2); Lymphocytes Percent Auto 16.7 % (18.3-44.2); Mean Corpuscular HGB Conc 33.4 g/dl (32-36); Mean Corpuscular Hemoglobin 31.1 pg (26-34); Mean Corpuscular Volume 93.1 fl (80-100); Mean Platelet Volume 9.6 fl (7.4-10.4); Monocytes Absolute Auto 0.8 K/mm3 (0.1-0.6); Neutrophils Absolute Auto 2.5 K/mm3 (1.3-6.7); Neutrophils Percent Auto 57.8 % (45.5-73.1); Platelet Count Result 220 k/mm3 (150-375); Red Blood Count 3.92 M/mm3 (4.6-6.20); Red Cell Distribution Width 13.8 % (11.5-14.5); White Blood Count 4.3 K/mm3 (4.5-10.0)
--- NOTE | 2021-09-26 10:32 | PM.PNCARD ---
Progress Note: A&P Assessment and Plan (1) Elevated troponin: Code(s): R77.8 - Other specified abnormalities of plasma proteins Status: Acute Assessment and Plan: Elevated troponins not a representation of ACS. Not having any further complaints of chest pain. He is okay to discharge today from a cardiac perspective. 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 (2) Sinus tachycardia: Code(s): R00.0 - Tachycardia, unspecified Status: Acute Assessment and Plan: Likely from beta-neris withdrawal. Heart rate has improved. Continue low-dose metoprolol tartrate 12.5 mg p.o. b.i.d. 2D echocardiogram Doppler showed normal LV systolic function with an EF of 65-70%, grade 1 diastolic dysfunction. Mild calcification of the aortic valve, moderate aortic valve sclerosis. Mild MR, mild TR. (3) Chest pain: Code(s): R07.9 - Chest pain, unspecified Status: Acute Assessment and Plan: Atypical and probably noncardiac (4) Ischemic cardiomyopathy: Code(s): I25.5 - Ischemic cardiomyopathy Status: Chronic Assessment and Plan: Recent echocardiogram showed normal systolic function. Grade 1 diastolic dysfunction. No regional wall motion abnormalities. (5) Paroxysmal atrial fibrillation: Code(s): I48.0 - Paroxysmal atrial fibrillation Status: Acute Assessment and Plan: Currently in sinus rhythm. (6) Coronary artery disease: Code(s): I25.10 - Atherosclerotic heart disease of [place] coronary artery without angina pectoris Status: Acute Assessment and Plan: Recent PCI. Continue dual anti-platelet therapy. (7) Hypotension: Code(s): I95.9 - Hypotension, unspecified Status: Acute Assessment and Plan: Significant hypotension at home. Currently improved. Subjective Date/time seen: 09/26/21 10:32 cardiology follow-up for chest pain. He feels well this morning. Denies any chest pain, shortness of breath. He is complaining of some back pain and shoulder pain. He tells me that he has sciatica and is seeking out some help from pain management for this. Review of Systems Review of Systems: All systems reviewed & are unremarkable except as noted in HPI and below Constitutional: Constitutional: Denies fatigue, Denies headache(s) and Reports weakness Eyes: Eyes: Denies blurry vision ENT: Denies Normal hearing present, Denies headache(s) and Denies neck pain Cardiovascular: Cardiovascular: Reports chest pain, Reports pedal edema and Denies dyspnea Respiratory: Respiratory: Denies dyspnea Gastrointestinal: Gastrointestinal: Denies abdominal pain Genitourinary: Genitourinary: Denies dysuria and Denies urinary frequency Musculoskeletal: Musculoskeletal: Denies back pain and Denies neck pain Integumentary/Breasts: Skin/Breast: Denies dry skin and Denies unusual bruising Neurologic: Denies Normal hearing present, Denies confusion, Denies headache(s) and Reports weakness Psychiatric: Psychiatric: Denies anxiety and Denies confusion Endocrine: Endocrine: Denies fatigue Hematologic/Lymphatic: Hematologic/Lymphatic: Denies easy bleeding Allergic/Immunologic: Allergic/Immunologic: Denies GI upset with certain foods Exam Narrative: Awake alert and oriented appears stated age Const: General: comfortable and no acute distress; No confusion Orientation/consciousness: No confusion HENMT: General nose exam: Normal nares present Eyes: Sclera: sclerae normal Neck: Neck: supple and no JVD Resp: Auscultation: clear to auscultation bilaterally Cardio: Rate: regular rate Rhythm: regular rhythm Heart sounds: no murmurs GI: Auscultation: normal bowel sounds Skin: General skin exam: normal color Neuro: General: No confusion Cranial nerves: No Normal hearing present Cognition (Neuro): normal cognition Speech: normal speech Extrem: General: normal to inspection and no edema
[2021-09-26 10:42] LABS: Anion Gap 9 mmol/L (8-16); Blood Urea Nitrogen 19 mg/dL (9-20); Calcium 9.3 mg/dL (8.4-10.2); Carbon Dioxide 26 mmol/L (22-30); Chloride 94 mmol/L (98-107); Estimated CRCL calculation 30 ml/min; Estimated Glomerular Filt Rate 36; Glucose 206 mg/dL (65-110); Potassium 4.3 mmol/L (3.4-5.0); Sodium 129 mmol/L (137-145)
[2021-09-26 12:28] LABS: Glucose Point of Care 224 mg/dl (65-105)
[2021-09-26] MEDS: INSULIN ASPART (*BKC) 100 UNITS/ML SUB-Q (13:40)
[2021-09-26 16:56] LABS: Glucose Point of Care 122 mg/dl (65-105)
--- NOTE | 2021-09-26 19:42 | PM.IMPN ---
Progress Note: A&P Assessment and Plan (1) Hyponatremia: Code(s): E87.1 - Hypo-osmolality and hyponatremia Status: Acute (2) Low blood pressure reading: Code(s): R03.1 - Nonspecific low blood-pressure reading Status: Acute (3) Sinus tachycardia: Code(s): R00.0 - Tachycardia, unspecified Status: Acute (4) Type 2 diabetes mellitus with other diabetic kidney complication: Code(s): E11.29 - Type 2 diabetes mellitus with other diabetic kidney complication Status: Chronic (5) Presence of aortocoronary bypass graft: Onset Date: 05/11/18 Code(s): Z95.1 - Presence of aortocoronary bypass graft Status: Chronic (6) OAB (overactive bladder): Code(s): N32.81 - Overactive bladder Status: Chronic (7) Mixed hyperlipidemia due to type 2 diabetes mellitus: Code(s): E11.69 - Type 2 diabetes mellitus with other specified complication; E78.2 - Mixed hyperlipidemia Status: Chronic (8) Chronic kidney disease, stage 3 (moderate): Onset Date: 03/08/19 Qualifiers: Chronic kidney disease stage 3 subtype: stage 3b (GFR 30-44) Qualified Code(s): N18.32 - Chronic kidney disease, stage 3b Code(s): N18.3 - Chronic kidney disease, stage 3 (moderate) Status: Chronic (9) Gastro-esophageal reflux disease without esophagitis: Onset Date: 03/08/19 Code(s): K21.9 - Gastro-esophageal reflux disease without esophagitis Status: Chronic (10) Diabetic peripheral neuropathy: Code(s): E11.42 - Type 2 diabetes mellitus with diabetic polyneuropathy Status: Chronic (11) Chronic gout, unspecified, without tophus (tophi): Code(s): M1A.9XX0 - Chronic gout, unspecified, without tophus (tophi) Status: Chronic (12) Mixed hyperlipidemia: Code(s): E78.2 - Mixed hyperlipidemia Status: Chronic (13) Chronic obstructive pulmonary disease, unspecified: Qualifiers: COPD type: unspecified COPD Qualified Code(s): J44.9 - Chronic obstructive pulmonary disease, unspecified Code(s): J44.9 - Chronic obstructive pulmonary disease, unspecified Status: Chronic (14) Ischemic cardiomyopathy: Code(s): I25.5 - Ischemic cardiomyopathy Status: Chronic (15) Anemia: Code(s): D64.9 - Anemia, unspecified Status: Acute (16) Obstructive sleep apnea on CPAP: Code(s): G47.33 - Obstructive sleep apnea (adult) (pediatric); Z99.89 - Dependence on other enabling machines and devices Status: Acute (17) Paroxysmal atrial fibrillation: Code(s): I48.0 - Paroxysmal atrial fibrillation Status: Acute (18) Essential hypertension: Code(s): I10 - Essential (primary) hypertension Status: Acute (19) Hypothyroidism: Code(s): E03.9 - Hypothyroidism, unspecified Status: Acute (20) Coronary artery disease: Code(s): I25.10 - Atherosclerotic heart disease of [place] coronary artery without angina pectoris Status: Acute (21) KHAI (obstructive sleep apnea): Code(s): G47.33 - Obstructive sleep apnea (adult) (pediatric) Status: Acute (22) Pulmonary fibrosis: Code(s): J84.10 - Pulmonary fibrosis, unspecified Status: Acute (23) Essential (primary) hypertension: Code(s): I10 - Essential (primary) hypertension Status: Chronic (24) Hypothyroidism (acquired): Code(s): E03.9 - Hypothyroidism, unspecified Status: Chronic (25) Benign prostatic hyperplasia with weak urinary stream: Code(s): N40.1 - Benign prostatic hyperplasia with lower urinary tract symptoms; R39.12 - Poor urinary stream Status: Chronic (26) Atherosclerotic heart disease of [place] coronary artery with angina pectoris: Code(s): I25.119 - Atherosclerotic heart disease of [place] coronary artery with unspecified angina pectoris Status: Chronic (27) Chronic diastolic heart failure with preserve
[2021-09-26] MEDS: ARTIFICIAL TEARS OPHTH SOLN 15 ML BOTTLE 1 DROP EACH EYE (19:57)
[2021-09-26] MEDS: TAMSULOSIN HCL 0.4 MG CAPSULE PO (20:00)
[2021-09-26] MEDS: traZODone HCL 50 MG TABLET PO (20:01)
[2021-09-26 21:14] LABS: Glucose Point of Care 184 mg/dl (65-105)
[2021-09-26] MEDS: INSULIN GLARGINE (*BKC) 100 UNITS/ML 10 UNITS SUB-Q (22:20)
[2021-09-27] VITALS (24 sets, daily range): BP systolic 102–143; BP diastolic 60–80; PULSE 70–114; RESP 16–24; TEMP 36.9–38.7; O2SAT 91–100
[2021-09-27] MEDS: ACETAMINOPHEN 325 MG TABLET 650 MG PO ×3 (00:33→20:36)
[2021-09-27] MEDS: metroNIDAZOLE 500 MG/ISO 100ML 500 MG/100 ML BAG 100 MG IVPB ×2 (00:42→05:59)
[2021-09-27] MEDS: LEVOTHYROXINE SODIUM 25 MCG TABLET PO (05:57)
[2021-09-27 06:11] LABS: Basophils Percent Auto 0.4 % (0.2-1.2); Eosinophils Absolute Auto 0.4 K/mm3 (0-0.3); Eosinophils Percent Auto 7.7 % (0-4.4); Hematocrit 32.6 % (42.0-52.0); Hemoglobin 10.9 g/dL (14.0-18.0); Immature Granulocyte Absolute 0.03 K/mm3 (0.00-0.031); Immature Granulocyte Percent A 0.6 % (0-0.5); Lymphocytes Absolute Auto 1.02 K/mm3 (0.9-3.2); Lymphocytes Percent Auto 20.2 % (18.3-44.2); Mean Corpuscular HGB Conc 33.4 g/dl (32-36); Mean Corpuscular Hemoglobin 31.4 pg (26-34); Mean Corpuscular Volume 93.9 fl (80-100); Mean Platelet Volume 9.9 fl (7.4-10.4); Monocytes Absolute Auto 0.9 K/mm3 (0.1-0.6); Monocytes Percent Auto 17.6 % (2.6-8.5); Neutrophils Absolute Auto 2.7 K/mm3 (1.3-6.7); Neutrophils Percent Auto 53.5 % (45.5-73.1); Platelet Count Result 224 k/mm3 (150-375); Red Blood Count 3.47 M/mm3 (4.6-6.20); White Blood Count 5.1 K/mm3 (4.5-10.0)
[2021-09-27 06:31] LABS: Alanine Aminotransferase 16 U/L (4-50); Albumin Level 3.8 g/dL (3.5-5.1); Alkaline Phosphatase 76 U/L (38-126); Anion Gap 9 mmol/L (8-16); Aspartate Amino Transferase 28 U/L (17-59); Bilirubin,Total 0.5 mg/dL (0.2-1.3); Blood Urea Nitrogen 27 mg/dL (9-20); Calcium 8.9 mg/dL (8.4-10.2); Carbon Dioxide 25 mmol/L (22-30); Chloride 95 mmol/L (98-107); Estimated CRCL calculation 27 ml/min; Estimated Glomerular Filt Rate 32; Glucose 152 mg/dL (65-110); Potassium 4.3 mmol/L (3.4-5.0); Sodium 129 mmol/L (137-145)
[2021-09-27 07:31] LABS: CRP 12.6 mg/dL (<1.0)
[2021-09-27 08:53] LABS: Glucose Point of Care 122 mg/dl (65-105)
[2021-09-27] MEDS: SODIUM BICARBONATE TAB 650 MG TABLET PO ×3 (08:59→17:49)
[2021-09-27] MEDS: POLYSACCHARIDE IRON COMPLEX 150 MG CAPSULE PO (08:59)
[2021-09-27] MEDS: CYANOCOBALAMIN 1,000 MCG TABLET 3000 MCG PO (08:59)
[2021-09-27] MEDS: ASPIRIN 81 MG ENTERIC TABLET PO (08:59)
[2021-09-27] MEDS: FEBUXOSTAT 40 MG TABLET PO (08:59)
[2021-09-27] MEDS: CLOPIDOGREL BISULFATE 75 MG TABLET PO (08:59)
[2021-09-27] MEDS: BENZONATATE 100 MG CAPSULE 200 MG PO ×3 (09:00→17:48)
[2021-09-27] MEDS: MICONAZOLE NITRATE 2% CREAM 30 GM TUBE 1 APPLIC TOPICAL (09:00)
[2021-09-27] MEDS: CLINDAMYCIN PHOS 1% 30 GM GEL 1 APPLIC TOPICAL (09:00)
[2021-09-27] MEDS: PREGABALIN (*CRX) 75 MG CAPSULE 150 MG PO ×2 (09:00→17:49)
[2021-09-27] MEDS: VITAMIN B COMPLEX CAPSULE 1 CAP PO (09:00)
[2021-09-27] MEDS: OPTI-GEN TAB 1 TABLET PO ×2 (09:00→17:49)
[2021-09-27] MEDS: METOPROLOL TARTRATE 25 MG TABLET PO ×2 (09:00→20:27)
[2021-09-27] MEDS: polyethylene glycoL 3350 17 GM POWD.PACK PO (09:01)
[2021-09-27] MEDS: POLYMYXIN/TRIMETHOPRIM OPHTH 10 ML DROPS 1 DROP EACH EYE ×4 (09:44→20:28)
--- NOTE | 2021-09-27 10:43 | PM.IMPN ---
Progress Note: A&P Assessment and Plan (1) Hyponatremia: Code(s): E87.1 - Hypo-osmolality and hyponatremia Status: Acute (2) Low blood pressure reading: Code(s): R03.1 - Nonspecific low blood-pressure reading Status: Acute (3) Sinus tachycardia: Code(s): R00.0 - Tachycardia, unspecified Status: Acute (4) Type 2 diabetes mellitus with other diabetic kidney complication: Code(s): E11.29 - Type 2 diabetes mellitus with other diabetic kidney complication Status: Chronic (5) Presence of aortocoronary bypass graft: Onset Date: 05/11/18 Code(s): Z95.1 - Presence of aortocoronary bypass graft Status: Chronic (6) OAB (overactive bladder): Code(s): N32.81 - Overactive bladder Status: Chronic (7) Mixed hyperlipidemia due to type 2 diabetes mellitus: Code(s): E11.69 - Type 2 diabetes mellitus with other specified complication; E78.2 - Mixed hyperlipidemia Status: Chronic (8) Chronic kidney disease, stage 3 (moderate): Onset Date: 03/08/19 Qualifiers: Chronic kidney disease stage 3 subtype: stage 3b (GFR 30-44) Qualified Code(s): N18.32 - Chronic kidney disease, stage 3b Code(s): N18.3 - Chronic kidney disease, stage 3 (moderate) Status: Chronic (9) Gastro-esophageal reflux disease without esophagitis: Onset Date: 03/08/19 Code(s): K21.9 - Gastro-esophageal reflux disease without esophagitis Status: Chronic (10) Diabetic peripheral neuropathy: Code(s): E11.42 - Type 2 diabetes mellitus with diabetic polyneuropathy Status: Chronic (11) Chronic gout, unspecified, without tophus (tophi): Code(s): M1A.9XX0 - Chronic gout, unspecified, without tophus (tophi) Status: Chronic (12) Mixed hyperlipidemia: Code(s): E78.2 - Mixed hyperlipidemia Status: Chronic (13) Chronic obstructive pulmonary disease, unspecified: Qualifiers: COPD type: unspecified COPD Qualified Code(s): J44.9 - Chronic obstructive pulmonary disease, unspecified Code(s): J44.9 - Chronic obstructive pulmonary disease, unspecified Status: Chronic (14) Ischemic cardiomyopathy: Code(s): I25.5 - Ischemic cardiomyopathy Status: Chronic (15) Anemia: Code(s): D64.9 - Anemia, unspecified Status: Acute (16) Obstructive sleep apnea on CPAP: Code(s): G47.33 - Obstructive sleep apnea (adult) (pediatric); Z99.89 - Dependence on other enabling machines and devices Status: Acute (17) Paroxysmal atrial fibrillation: Code(s): I48.0 - Paroxysmal atrial fibrillation Status: Acute (18) Essential hypertension: Code(s): I10 - Essential (primary) hypertension Status: Acute (19) Hypothyroidism: Code(s): E03.9 - Hypothyroidism, unspecified Status: Acute (20) Coronary artery disease: Code(s): I25.10 - Atherosclerotic heart disease of [place] coronary artery without angina pectoris Status: Acute (21) KHAI (obstructive sleep apnea): Code(s): G47.33 - Obstructive sleep apnea (adult) (pediatric) Status: Acute (22) Pulmonary fibrosis: Code(s): J84.10 - Pulmonary fibrosis, unspecified Status: Acute (23) Essential (primary) hypertension: Code(s): I10 - Essential (primary) hypertension Status: Chronic (24) Hypothyroidism (acquired): Code(s): E03.9 - Hypothyroidism, unspecified Status: Chronic (25) Benign prostatic hyperplasia with weak urinary stream: Code(s): N40.1 - Benign prostatic hyperplasia with lower urinary tract symptoms; R39.12 - Poor urinary stream Status: Chronic (26) Atherosclerotic heart disease of [place] coronary artery with angina pectoris: Code(s): I25.119 - Atherosclerotic heart disease of [place] coronary artery with unspecified angina pectoris Status: Chronic (27) Chronic diastolic heart failure with preserve
[2021-09-27] MEDS: SODIUM CHLORIDE 0.9% IV 1,000 ML 75 ML IV CONT (12:01)
[2021-09-27] MEDS: BISACODYL 10 MG SUPPOSITORY RECTAL (12:01)
[2021-09-27 12:44] LABS: Glucose Point of Care 156 mg/dl (65-105)
[2021-09-27] MEDS: INSULIN ASPART (*BKC) 100 UNITS/ML SUB-Q (17:49)
[2021-09-27 17:51] LABS: Glucose Point of Care 208 mg/dl (65-105)
[2021-09-27] MEDS: TAMSULOSIN HCL 0.4 MG CAPSULE PO (20:27)
[2021-09-27] MEDS: traZODone HCL 50 MG TABLET PO (20:28)
[2021-09-27] MEDS: INSULIN GLARGINE (*BKC) 100 UNITS/ML 10 UNITS SUB-Q (20:36)
[2021-09-27 21:03] LABS: Glucose Point of Care 172 mg/dl (65-105)
[2021-09-27 21:03] LABS: Glucose Point of Care 144 mg/dl (65-105)
[2021-09-27] MEDS: oxyCODONE HCL (*CRX) 5 MG TAB IR PO (22:00)
[2021-09-28] VITALS (12 sets, daily range): BP systolic 110–153; BP diastolic 62–76; PULSE 61–103; RESP 16–20; TEMP 36.3–38.3; O2SAT 94–97
[2021-09-28] MEDS: SODIUM CHLORIDE 0.9% IV 1,000 ML 75 ML IV CONT ×2 (02:15→16:58)
--- NOTE | 2021-09-28 02:55 | PC.NURSE ---
At 0230 received pt from IMU room 210-1 per bed. IV intact, Tele setup. Call light in reach. Reoriented to his new room. Bed exit alarm activated. Pt is Alert and oriented and has no complaints at this time. Received report from Tonny BETHEL.
--- NOTE | 2021-09-28 03:07 | PC.NURSE ---
This patient, Freddy Ferguson, was transferred to [facility] on 09/28/21 at 0230. Personal belongings sent with patient. Report given to Jayashree HUGO. Appropriate documentation sent with patient.
[2021-09-28 05:49] LABS: Basophils Percent Auto 0.2 % (0.2-1.2); Eosinophils Absolute Auto 0.2 K/mm3 (0-0.3); Eosinophils Percent Auto 4.7 % (0-4.4); Hematocrit 32.3 % (42.0-52.0); Hemoglobin 10.8 g/dL (14.0-18.0); Immature Granulocyte Absolute 0.02 K/mm3 (0.00-0.031); Immature Granulocyte Percent A 0.5 % (0-0.5); Lymphocytes Absolute Auto 1.03 K/mm3 (0.9-3.2); Mean Corpuscular HGB Conc 33.4 g/dl (32-36); Mean Corpuscular Hemoglobin 30.8 pg (26-34); Mean Platelet Volume 10.1 fl (7.4-10.4); Monocytes Absolute Auto 0.8 K/mm3 (0.1-0.6); Monocytes Percent Auto 18.4 % (2.6-8.5); Neutrophils Absolute Auto 2.2 K/mm3 (1.3-6.7); Neutrophils Percent Auto 52.2 % (45.5-73.1); Platelet Count Result 211 k/mm3 (150-375); Red Blood Count 3.51 M/mm3 (4.6-6.20); Red Cell Distribution Width 13.6 % (11.5-14.5); White Blood Count 4.3 K/mm3 (4.5-10.0)
[2021-09-28] MEDS: LEVOTHYROXINE SODIUM 25 MCG TABLET PO (05:53)
[2021-09-28] MEDS: POLYMYXIN/TRIMETHOPRIM OPHTH 10 ML DROPS 1 DROP EACH EYE ×5 (05:53→21:32)
[2021-09-28 06:01] LABS: Anion Gap 5 mmol/L (8-16); Blood Urea Nitrogen 26 mg/dL (9-20); Calcium 9.1 mg/dL (8.4-10.2); Carbon Dioxide 26 mmol/L (22-30); Chloride 99 mmol/L (98-107); Estimated CRCL calculation 30 ml/min; Estimated Glomerular Filt Rate 36; Glucose 131 mg/dL (65-110); Potassium 4.4 mmol/L (3.4-5.0); Sodium 130 mmol/L (137-145)
[2021-09-28 06:10] LABS: CRP 13.4 mg/dL (<1.0)
[2021-09-28 07:00] LABS: Osmolality, Urine 296 mOsm/kg (50-1200)
[2021-09-28] MEDS: PREGABALIN (*CRX) 75 MG CAPSULE 150 MG PO ×2 (08:02→16:52)
[2021-09-28] MEDS: SODIUM BICARBONATE TAB 650 MG TABLET PO ×3 (08:02→16:53)
[2021-09-28] MEDS: VITAMIN B COMPLEX CAPSULE 1 CAP PO (08:02)
[2021-09-28] MEDS: CYANOCOBALAMIN 1,000 MCG TABLET 3000 MCG PO (08:02)
[2021-09-28] MEDS: FEBUXOSTAT 40 MG TABLET PO (08:03)
[2021-09-28] MEDS: CLOPIDOGREL BISULFATE 75 MG TABLET PO (08:03)
[2021-09-28] MEDS: METOPROLOL TARTRATE 25 MG TABLET PO (08:03)
[2021-09-28] MEDS: OPTI-GEN TAB 1 TABLET PO ×2 (08:03→16:54)
[2021-09-28] MEDS: POLYSACCHARIDE IRON COMPLEX 150 MG CAPSULE PO (08:03)
[2021-09-28] MEDS: ASPIRIN 81 MG ENTERIC TABLET PO (08:05)
[2021-09-28] MEDS: BENZONATATE 100 MG CAPSULE 200 MG PO ×3 (08:05→16:54)
[2021-09-28] MEDS: polyethylene glycoL 3350 17 GM POWD.PACK PO (08:06)
[2021-09-28 08:14] LABS: Glucose Point of Care 105 mg/dl (65-105)
[2021-09-28] MEDS: oxyCODONE HCL (*CRX) 5 MG TAB IR PO ×3 (08:14→16:53)
--- NOTE | 2021-09-28 09:12 | PM.IMPN ---
Progress Note: A&P Assessment and Plan (1) Hyponatremia: Code(s): E87.1 - Hypo-osmolality and hyponatremia Status: Acute (2) Low blood pressure reading: Code(s): R03.1 - Nonspecific low blood-pressure reading Status: Acute (3) Sinus tachycardia: Code(s): R00.0 - Tachycardia, unspecified Status: Acute (4) Type 2 diabetes mellitus with other diabetic kidney complication: Code(s): E11.29 - Type 2 diabetes mellitus with other diabetic kidney complication Status: Chronic (5) Presence of aortocoronary bypass graft: Onset Date: 05/11/18 Code(s): Z95.1 - Presence of aortocoronary bypass graft Status: Chronic (6) OAB (overactive bladder): Code(s): N32.81 - Overactive bladder Status: Chronic (7) Mixed hyperlipidemia due to type 2 diabetes mellitus: Code(s): E11.69 - Type 2 diabetes mellitus with other specified complication; E78.2 - Mixed hyperlipidemia Status: Chronic (8) Chronic kidney disease, stage 3 (moderate): Onset Date: 03/08/19 Qualifiers: Chronic kidney disease stage 3 subtype: stage 3b (GFR 30-44) Qualified Code(s): N18.32 - Chronic kidney disease, stage 3b Code(s): N18.3 - Chronic kidney disease, stage 3 (moderate) Status: Chronic (9) Gastro-esophageal reflux disease without esophagitis: Onset Date: 03/08/19 Code(s): K21.9 - Gastro-esophageal reflux disease without esophagitis Status: Chronic (10) Diabetic peripheral neuropathy: Code(s): E11.42 - Type 2 diabetes mellitus with diabetic polyneuropathy Status: Chronic (11) Chronic gout, unspecified, without tophus (tophi): Code(s): M1A.9XX0 - Chronic gout, unspecified, without tophus (tophi) Status: Chronic (12) Mixed hyperlipidemia: Code(s): E78.2 - Mixed hyperlipidemia Status: Chronic (13) Chronic obstructive pulmonary disease, unspecified: Qualifiers: COPD type: unspecified COPD Qualified Code(s): J44.9 - Chronic obstructive pulmonary disease, unspecified Code(s): J44.9 - Chronic obstructive pulmonary disease, unspecified Status: Chronic (14) Ischemic cardiomyopathy: Code(s): I25.5 - Ischemic cardiomyopathy Status: Chronic (15) Anemia: Code(s): D64.9 - Anemia, unspecified Status: Acute (16) Obstructive sleep apnea on CPAP: Code(s): G47.33 - Obstructive sleep apnea (adult) (pediatric); Z99.89 - Dependence on other enabling machines and devices Status: Acute (17) Paroxysmal atrial fibrillation: Code(s): I48.0 - Paroxysmal atrial fibrillation Status: Acute (18) Essential hypertension: Code(s): I10 - Essential (primary) hypertension Status: Acute (19) Hypothyroidism: Code(s): E03.9 - Hypothyroidism, unspecified Status: Acute (20) Coronary artery disease: Code(s): I25.10 - Atherosclerotic heart disease of [place] coronary artery without angina pectoris Status: Acute (21) KHAI (obstructive sleep apnea): Code(s): G47.33 - Obstructive sleep apnea (adult) (pediatric) Status: Acute (22) Pulmonary fibrosis: Code(s): J84.10 - Pulmonary fibrosis, unspecified Status: Acute (23) Essential (primary) hypertension: Code(s): I10 - Essential (primary) hypertension Status: Chronic (24) Hypothyroidism (acquired): Code(s): E03.9 - Hypothyroidism, unspecified Status: Chronic (25) Benign prostatic hyperplasia with weak urinary stream: Code(s): N40.1 - Benign prostatic hyperplasia with lower urinary tract symptoms; R39.12 - Poor urinary stream Status: Chronic (26) Atherosclerotic heart disease of [place] coronary artery with angina pectoris: Code(s): I25.119 - Atherosclerotic heart disease of [place] coronary artery with unspecified angina pectoris Status: Chronic (27) Chronic diastolic heart failure with preserve
[2021-09-28 09:34] LABS: Lactic Acid Reflex 1.2 mmol/L (0.7-2.1)
[2021-09-28 09:58] LABS: Procalcitonin 0.1 ng/mL
[2021-09-28 09:59] LABS: Rheumatoid Factor < 8.6 IU/ML (<12)
[2021-09-28 10:38] LABS: HIV 1/2 Ab P24 Ag Result Negative (Negative)
[2021-09-28 12:00] LABS: Glucose Point of Care 103 mg/dl (65-105)
--- NOTE | 2021-09-28 12:13 | PM.CNPUL ---
Assessment and Plan Assessment and plan (1) Pulmonary fibrosis: Code(s): J84.10 - Pulmonary fibrosis, unspecified Status: Acute Assessment and Plan: Patient with a history of interstitial lung disease 1st seen on CT scan on 10/27/2020 with mild peripheral predominant banding and mild ground-glass opacities. At that time he had a negative VIVIEN cascade for 11 to for an auto antibodies, negative hypersensitivity pneumonitis panel negative rheumatoid factor. 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 Patient continued to have dyspnea on exertion after his COVID and he tells me today that he has never fully recovered post COVID. Patient currently has worsening cough mildly increased dyspnea on exertion over the last [address] scan on 09/25/2021 with no change in his mild peripheral predominant banding and mild ground-glass opacities. His chest x-ray is negative on 09/24/21. Patient remains on room air throughout this hospitalization. He has had intermittent fevers during this hospitalization and clinically appears nontoxic. He does have a high eosinophil percentage (6-10%) with a relatively low total white blood cell count resulting in total eosinophils < 500/uL. CT abd/pelvis negative. Oncology has been consulted. He is COVID negative and I will send influenza swab. I will repeat an VIVIEN cascade and also send an ANCA at this time. His cough has 80% better since hospitalization and treatment with empiric broad-spectrum antibiotics and he may have had a tracheobronchitis with a worsening cough. Overall I do not think his fevers are related to a pulmonary issue at this time. He can follow with us in the pulmonary clinic and have outpatient PFTs to assess his lung function, volumes and DLCO. Discussed with Odilia Mclaughlin. Will sign off. Call with questions. History of Present Illness History of Present Illness Consult date: 09/28/21 Requesting physician: Mey Mclaughlin MD Reason for consult: pulmonary fibrosis Chief complaint: Sinus tachycardia/atypical chest pain/elevated tro Narrative: 09/28/2021: This is a new Pulmonary consultation for fever of unknown origin. 81-year-old man with a history of coronary artery disease status post CABG and status post stents in March of 2021 and August of 2021, hypertension, diabetes, hyperlipidemia, chronic kidney disease with a baseline creatinine of about 1.8, paroxysmal atrial fibrillation Caro, obstructive sleep apnea on CPAP, a history of COVID pneumonia on 07/10/2020. Patient never required hospitalization for his COVID pneumonia. Patient had a chest x-ray on 07/16/2020 with bibasilar subtle opacities. Repeat chest x-ray on 07/19/2020 demonstrated clearing of these bibasilar infiltrates. I had previously seen the patient in the hospital on 1320 when he was in for shortness of breath he was being diuresed and he had a CT scan that showed peripheral basilar predominant interstitial lung disease with no honeycombing. This was new since 02/22/2019 CT scan which was clear. Patient was on room air at that time. Rheumatoid factor was sent which was negative, and a cascade including 11 different auto antibodies was negative, hypersensitivity pneumonitis panel was negative. Patient was to follow up with his primary physician and return to Pulmonary Clinic if needed. Patient tells me in March of 2021 he went to a hospital in [place] with chest pain, had a positive heart attack and a stent placed. 2-3 days later he had pains with blood pressure low blood pressure and he tells me his gallbladder was infected requiring a drain and antibiotics for 4 weeks. In July of 2021 the patient developed left sciatica which has limited his ability to walk. He could only walk across the room now. At that time he also says that he felt like at times h
[2021-09-28 12:31] LABS: SARS-CoV-2 RNA PCR Negative
[2021-09-28 15:56] LABS: Vancomycin Trough 5.4 ug/mL (10.0-20.0)
[2021-09-28 16:55] LABS: Glucose Point of Care 110 mg/dl (65-105)
[2021-09-28 17:15] LABS: Influenza Control Positive
[2021-09-28] MEDS: ACETAMINOPHEN 325 MG TABLET 650 MG PO (18:04)
[2021-09-28] MEDS: traMADol HCL (*CRX) 50 MG TABLET PO (21:30)
[2021-09-28] MEDS: traZODone HCL 50 MG TABLET PO (21:31)
[2021-09-28] MEDS: TAMSULOSIN HCL 0.4 MG CAPSULE PO (21:31)
[2021-09-28] MEDS: INSULIN GLARGINE (*BKC) 100 UNITS/ML 10 UNITS SUB-Q (21:32)
[2021-09-29] VITALS (19 sets, daily range): BP systolic 106–164; BP diastolic 60–95; PULSE 69–103; RESP 16–20; TEMP 36.5–37.6; O2SAT 92–99
[2021-09-29 00:09] LABS: Glucose Point of Care 149 mg/dl (65-105)
[2021-09-29] MEDS: oxyCODONE HCL (*CRX) 5 MG TAB IR PO ×5 (04:44→21:51)
[2021-09-29] MEDS: POLYMYXIN/TRIMETHOPRIM OPHTH 10 ML DROPS 1 DROP EACH EYE ×5 (04:44→21:27)
[2021-09-29 05:11] LABS: Basophils Percent Auto 0.4 % (0.2-1.2); Eosinophils Absolute Auto 0.5 K/mm3 (0-0.3); Hemoglobin 9.9 g/dL (14.0-18.0); Immature Granulocyte Absolute 0.04 K/mm3 (0.00-0.031); Immature Granulocyte Percent A 0.9 % (0-0.5); Lymphocytes Absolute Auto 1.17 K/mm3 (0.9-3.2); Lymphocytes Percent Auto 25.3 % (18.3-44.2); Mean Corpuscular Hemoglobin 30.7 pg (26-34); Mean Corpuscular Volume 92.9 fl (80-100); Mean Platelet Volume 9.9 fl (7.4-10.4); Monocytes Absolute Auto 0.9 K/mm3 (0.1-0.6); Monocytes Percent Auto 18.8 % (2.6-8.5); Neutrophils Percent Auto 43.6 % (45.5-73.1); Platelet Count Result 219 k/mm3 (150-375); Red Blood Count 3.23 M/mm3 (4.6-6.20); Red Cell Distribution Width 13.9 % (11.5-14.5); White Blood Count 4.6 K/mm3 (4.5-10.0)
[2021-09-29] MEDS: SODIUM CHLORIDE 0.9% IV 1,000 ML 75 ML IV CONT ×2 (05:25→18:01)
[2021-09-29] MEDS: LEVOTHYROXINE SODIUM 25 MCG TABLET PO (05:32)
[2021-09-29 05:41] LABS: Alanine Aminotransferase 18 U/L (4-50); Albumin Level 3.6 g/dL (3.5-5.1); Alkaline Phosphatase 74 U/L (38-126); Anion Gap 8 mmol/L (8-16); Aspartate Amino Transferase 26 U/L (17-59); Bilirubin,Total 0.6 mg/dL (0.2-1.3); Blood Urea Nitrogen 23 mg/dL (9-20); CRP 7.6 mg/dL (<1.0); Calcium 8.8 mg/dL (8.4-10.2); Carbon Dioxide 28 mmol/L (22-30); Chloride 96 mmol/L (98-107); Creatine Kinase 41 U/L (55-170); Estimated CRCL calculation 34 ml/min; Estimated Glomerular Filt Rate 42; Glucose 101 mg/dL (65-110); Lactate Dehydrogenase 604 U/L (313-618); Magnesium 2.1 mg/dL (1.6-2.3); Phosphorus 3.6 mg/dL (2.5-4.5); Sodium 132 mmol/L (137-145)
[2021-09-29 07:31] LABS: D Dimer < 0.22 ug/mL (<0.48)
[2021-09-29 07:52] LABS: Glucose Point of Care 92 mg/dl (65-105)
[2021-09-29] MEDS: BENZONATATE 100 MG CAPSULE 200 MG PO ×3 (08:36→17:53)
[2021-09-29] MEDS: SODIUM BICARBONATE TAB 650 MG TABLET PO ×3 (08:36→17:53)
[2021-09-29] MEDS: CYANOCOBALAMIN 1,000 MCG TABLET 3000 MCG PO (08:36)
[2021-09-29] MEDS: LIDOCAINE 5% PATCH 2 PATCH TRANSDERM (08:36)
[2021-09-29] MEDS: ASPIRIN 81 MG ENTERIC TABLET PO (08:37)
[2021-09-29] MEDS: OPTI-GEN TAB 1 TABLET PO ×2 (08:37→17:54)
[2021-09-29] MEDS: PREGABALIN (*CRX) 75 MG CAPSULE 150 MG PO ×2 (08:37→17:57)
[2021-09-29] MEDS: CLOPIDOGREL BISULFATE 75 MG TABLET PO (08:37)
[2021-09-29] MEDS: FEBUXOSTAT 40 MG TABLET PO (08:37)
[2021-09-29] MEDS: POLYSACCHARIDE IRON COMPLEX 150 MG CAPSULE PO (08:37)
[2021-09-29] MEDS: VITAMIN B COMPLEX CAPSULE 1 CAP PO (08:37)
[2021-09-29] MEDS: polyethylene glycoL 3350 17 GM POWD.PACK PO (08:38)
--- NOTE | 2021-09-29 10:06 | PM.IMPN ---
Progress Note: A&P Assessment and Plan (1) Hyponatremia: Code(s): E87.1 - Hypo-osmolality and hyponatremia Status: Acute (2) Low blood pressure reading: Code(s): R03.1 - Nonspecific low blood-pressure reading Status: Acute (3) Sinus tachycardia: Code(s): R00.0 - Tachycardia, unspecified Status: Acute (4) Type 2 diabetes mellitus with other diabetic kidney complication: Code(s): E11.29 - Type 2 diabetes mellitus with other diabetic kidney complication Status: Chronic (5) Presence of aortocoronary bypass graft: Onset Date: 05/11/18 Code(s): Z95.1 - Presence of aortocoronary bypass graft Status: Chronic (6) OAB (overactive bladder): Code(s): N32.81 - Overactive bladder Status: Chronic (7) Mixed hyperlipidemia due to type 2 diabetes mellitus: Code(s): E11.69 - Type 2 diabetes mellitus with other specified complication; E78.2 - Mixed hyperlipidemia Status: Chronic (8) Chronic kidney disease, stage 3 (moderate): Onset Date: 03/08/19 Qualifiers: Chronic kidney disease stage 3 subtype: stage 3b (GFR 30-44) Qualified Code(s): N18.32 - Chronic kidney disease, stage 3b Code(s): N18.3 - Chronic kidney disease, stage 3 (moderate) Status: Chronic (9) Gastro-esophageal reflux disease without esophagitis: Onset Date: 03/08/19 Code(s): K21.9 - Gastro-esophageal reflux disease without esophagitis Status: Chronic (10) Diabetic peripheral neuropathy: Code(s): E11.42 - Type 2 diabetes mellitus with diabetic polyneuropathy Status: Chronic (11) Chronic gout, unspecified, without tophus (tophi): Code(s): M1A.9XX0 - Chronic gout, unspecified, without tophus (tophi) Status: Chronic (12) Mixed hyperlipidemia: Code(s): E78.2 - Mixed hyperlipidemia Status: Chronic (13) Chronic obstructive pulmonary disease, unspecified: Qualifiers: COPD type: unspecified COPD Qualified Code(s): J44.9 - Chronic obstructive pulmonary disease, unspecified Code(s): J44.9 - Chronic obstructive pulmonary disease, unspecified Status: Chronic (14) Ischemic cardiomyopathy: Code(s): I25.5 - Ischemic cardiomyopathy Status: Chronic (15) Anemia: Code(s): D64.9 - Anemia, unspecified Status: Acute (16) Obstructive sleep apnea on CPAP: Code(s): G47.33 - Obstructive sleep apnea (adult) (pediatric); Z99.89 - Dependence on other enabling machines and devices Status: Acute (17) Paroxysmal atrial fibrillation: Code(s): I48.0 - Paroxysmal atrial fibrillation Status: Acute (18) Essential hypertension: Code(s): I10 - Essential (primary) hypertension Status: Acute (19) Hypothyroidism: Code(s): E03.9 - Hypothyroidism, unspecified Status: Acute (20) Coronary artery disease: Code(s): I25.10 - Atherosclerotic heart disease of [place] coronary artery without angina pectoris Status: Acute (21) KHAI (obstructive sleep apnea): Code(s): G47.33 - Obstructive sleep apnea (adult) (pediatric) Status: Acute (22) Pulmonary fibrosis: Code(s): J84.10 - Pulmonary fibrosis, unspecified Status: Acute (23) Essential (primary) hypertension: Code(s): I10 - Essential (primary) hypertension Status: Chronic (24) Hypothyroidism (acquired): Code(s): E03.9 - Hypothyroidism, unspecified Status: Chronic (25) Benign prostatic hyperplasia with weak urinary stream: Code(s): N40.1 - Benign prostatic hyperplasia with lower urinary tract symptoms; R39.12 - Poor urinary stream Status: Chronic (26) Atherosclerotic heart disease of [place] coronary artery with angina pectoris: Code(s): I25.119 - Atherosclerotic heart disease of [place] coronary artery with unspecified angina pectoris Status: Chronic (27) Chronic diastolic heart failure with preserve
[2021-09-29 11:17] LABS: Glucose Point of Care 113 mg/dl (65-105)
[2021-09-29] MEDS: NITROGLYCERIN SL 0.4 MG TABLET SUBLINGUAL ×3 (11:23→11:58)
--- NOTE | 2021-09-29 11:30 | ECG_ITS ---
Measurements Intervals [place] Rate: 86 P: 0 NH: 177 QRS: -54 QRSD: 92 T: 1 QT: 371 QTc: 446 Interpretive Statements SINUS RHYTHM LEFT AXIS DEVIATION POOR R WAVE PROGRESSION, ANTERIOR LEADS BORDERLINE T WAVE ABNORMALITY- INFERIOR LEADS BORDERLINE ECG Electronically Signed On 09-29-2021 15:23:28 CHIEF STATION ENGINEER by James Sanchez D.O.
[2021-09-29 12:14] LABS: Troponin I 0.038 ng/mL (0.000-0.034)
--- NOTE | 2021-09-29 13:12 | PCPTNOTE ---
Attempt PT treatment: Per RN, patient needs to be put on hold for therapy the rest of the day due to patient not feeling well. Per RN, patient was being given nitroglycerin.
--- NOTE | 2021-09-29 13:20 | PM.CNOR ---
Assessment and Plan Additional Plan assessment: C/W rotator cuff tear chronic. NOT c/w infection I was prepared to aspirate the shoulder but his clinical exam is so benign for infection there is no need. Will not do a steroid injection at this time as he seems to be transiently bacteremic and injecting steroid with that possibility is not a good option. OT or PT could see modalities for pain. sling if necessary although on my assessment I don't believe he would utilize. said no when i mentioned it. f/u as an outpt. might be a candidate for steriod injection. Could f/u with his shoulder surgeon at [place] or with me. History of Present Illness HPI Consult date: 09/29/21 Chief complaint: Sinus tachycardia/atypical chest pain/elevated tro Narrative: 81 yo male admitted for cardiac w/u. During admission has had fever and WBC elevated. Concern if right shoulder could be etiology. WRT r shoulder has had repair of rotator cuff with reoccurance. Sees a at [place] for this. states his shoulder pain is essentially his baseline. Was hoping for a shoulder injection. [facility] Past Medical History Medical History Adrenal insufficiency (Lisandro's disease) Poorly documented, patient denies. Anemia Benign prostatic hyperplasia Cerebrovascular accident (2019) Chronic kidney disease due to diabetes mellitus Chronic obstructive pulmonary disease, unspecified Coronary artery disease History of multiple stents and CABG. COVID-19 Degenerative disc disease Essential hypertension Gastroesophageal reflux disease GI bleed (11/2018) Presumed to be diverticular in origin. Gout Hypothyroidism Insulin dependent type 2 diabetes mellitus Ischemic cardiomyopathy Macular degeneration Mixed hyperlipidemia Myocardial infarction Obstructive sleep apnea on CPAP Osteoarthritis Paroxysmal atrial fibrillation Peptic ulcer Peripheral vascular disease due to secondary diabetes Vitamin D deficiency Surgical History Surgical History History of appendectomy (1963) History of bilateral cataract extraction History of cardiac catheterization Multiple over the years History of colonoscopy with polypectomy History of coronary artery bypass graft x 3 (01/2018) MOHAMUD graft to LAD and vein graft to OM1 and OM3. Done at [facility]. History of fusion of cervical spine History of heart artery stent History of loop recorder History of lumbar discectomy History of throat surgery History of tonsillectomy History of transurethral resection of prostate Status post trigger finger release Family History Family History Mother Family history of diabetes mellitus in first degree relative Diabetes mellitus Kidney disease Father Family history of congestive heart failure Macular degeneration Sibling Macular degeneration Social History Social History Social History: The patient is and lives with his in [place], [place]. They have no children and have been for 50+ years. He is a lifelong nonsmoker and drinks perhaps 2 to 3 alcoholic beverages a month. No illicit substance use. He designates his , Sherice, as his surrogate decision maker. Code status: Full code. Meds Home Medications and Allergies Home Medications Medication Instructions Recorded Confirmed Type febuxostat 40 mg tablet 40 mg PO DAILY 07/20/19 09/24/21 History polymyxin B sulfate 10,000 1 drop OPHTHALMIC (EYE) Q4HWA ml 12/13/19 09/24/21 History unit-trimethoprim 1 mg/mL eye drops cyanocobalamin (vitamin B-12) 3,000 mcg PO DAILY 90 Days #90 cap 12/20/19 09/24/21 Rx 3,000 mcg capsule PreserVision AREDS-2 1 tablet PO BID 05/25/20 09/24/21 History insulin aspart U-100 [Novolog 1 sliding scale dose SUBCUT 05/25/20 09/24/21 History U-1
[2021-09-29 16:32] LABS: Troponin I 0.045 ng/mL (0.000-0.034)
--- NOTE | 2021-09-29 16:36 | PM.PNCARD ---
Progress Note: A&P Assessment and Plan (1) Elevated troponin: Code(s): R77.8 - Other specified abnormalities of plasma proteins Status: Acute Assessment and Plan: Elevated troponins, probably chronically elevated. Fairly flat curve so far. No ischemic changes on his EKG Continue aspirin, metoprolol, Repatha. He will need outpatient follow-up with his ruby on rails web developer at the [place]. (2) Sinus tachycardia: Code(s): R00.0 - Tachycardia, unspecified Status: Acute Assessment and Plan: Likely from beta-neris withdrawal. Heart rate has improved. Continue low-dose metoprolol tartrate 12.5 mg p.o. b.i.d. 2D echocardiogram Doppler showed normal LV systolic function with an EF of 65-70%, grade 1 diastolic dysfunction. Mild calcification of the aortic valve, moderate aortic valve sclerosis. Mild MR, mild TR. (3) Chest pain: Code(s): R07.9 - Chest pain, unspecified Status: Acute Assessment and Plan: Atypical and probably noncardiac. Continue with symptomatic treatment. (4) Ischemic cardiomyopathy: Code(s): I25.5 - Ischemic cardiomyopathy Status: Chronic Assessment and Plan: Recent echocardiogram showed normal systolic function. Grade 1 diastolic dysfunction. No regional wall motion abnormalities. (5) Paroxysmal atrial fibrillation: Code(s): I48.0 - Paroxysmal atrial fibrillation Status: Acute Assessment and Plan: Currently in sinus rhythm. (6) Coronary artery disease: Code(s): I25.10 - Atherosclerotic heart disease of [place] coronary artery without angina pectoris Status: Acute Assessment and Plan: Recent PCI. Continue dual anti-platelet therapy. (7) Hypotension: Code(s): I95.9 - Hypotension, unspecified Status: Acute Assessment and Plan: Significant hypotension at home. Currently improved. Subjective Date/time seen: 09/29/21 16:36 Interval history: Cardiology follow-up for chest pain. History of CAD. 09/26/2019 to:He feels well this morning. Denies any chest pain, shortness of breath. He is complaining of some back pain and shoulder pain. He tells me that he has sciatica and is seeking out some help from pain management [place] elevated troponins did not represent ACS, chest pain atypical, continue usual care for secondary prevention. Date of service 09/29/2021: Had some chest discomfort today, like he has had for years. He was talking to his brother in suddenly felt overwhelmingly weak, like he 1 to collapse, none was having some chest pains going across his chest lasting 4 minute at a time but recurrent. He received TN G x3, faded away. Nontender, nonpleuritic, nonpositional. Troponins: 0.038 and 0.045. Blood pressure stable. Last fever was yesterday afternoon up to 101.1, and this morning 99.7. Review of Systems Constitutional: Constitutional: Reports weakness Eyes: Eyes: Reports blurry vision ENT: Denies epistaxis Cardiovascular: Cardiovascular: Reports chest pain, Denies leg edema and Denies palpitations Gastrointestinal: Gastrointestinal: Denies abdominal pain Genitourinary: Genitourinary: Denies dysuria Musculoskeletal: Musculoskeletal: Reports no additional musculoskeletal complaints Integumentary/Breasts: Skin/Breast: Denies rash Neurologic: Reports system reviewed and no additional complaints, except as documented Psychiatric: Psychiatric: Reports no additional psychiatric complaints Exam Narrative: Pleasant older male watching TV, eating dinner no distress Const: General: comfortable and no acute distress HENMT: General nose exam: no epistaxis Eyes: EOM: EOMs intact bilaterally Neck: Neck: supple Resp: Effort & Inspection: normal respiratory effort Auscultation: clear to auscultation bilaterally Cardio: Rate: regular rate Rhythm: regular rhythm Heart sounds: no murmurs GI: GI Palp: Yes Soft to palpation and No Tenderness to palpation p
[2021-09-29 16:38] LABS: Glucose Point of Care 128 mg/dl (65-105)
[2021-09-29 18:34] LABS: Troponin I 0.045 ng/mL (0.000-0.034)
[2021-09-29] MEDS: traZODone HCL 50 MG TABLET PO (21:27)
[2021-09-29] MEDS: TAMSULOSIN HCL 0.4 MG CAPSULE PO (21:27)
[2021-09-29] MEDS: INSULIN GLARGINE (*BKC) 100 UNITS/ML 10 UNITS SUB-Q (21:31)
[2021-09-29 22:07] LABS: Glucose Point of Care 130 mg/dl (65-105)
[2021-09-30] VITALS (27 sets, daily range): BP systolic 96–184; BP diastolic 56–81; PULSE 79–114; RESP 14–20; TEMP 36.4–37.2; O2SAT 92–97
[2021-09-30] MEDS: POLYMYXIN/TRIMETHOPRIM OPHTH 10 ML DROPS 1 DROP EACH EYE ×5 (04:51→20:41)
[2021-09-30] MEDS: LEVOTHYROXINE SODIUM 25 MCG TABLET PO (04:52)
[2021-09-30 06:04] LABS: Estimated CRCL calculation 32 ml/min; Estimated Glomerular Filt Rate 39
[2021-09-30] MEDS: SODIUM CHLORIDE 0.9% IV 1,000 ML 75 ML IV CONT (06:41)
[2021-09-30 07:21] LABS: Rapid Plasma Reagin Non-Reactive (NonReactive)
[2021-09-30 08:16] LABS: Glucose Point of Care 146 mg/dl (65-105)
[2021-09-30] MEDS: NITROGLYCERIN SL 0.4 MG TABLET SUBLINGUAL ×3 (09:26→11:26)
[2021-09-30] MEDS: PREGABALIN (*CRX) 75 MG CAPSULE 150 MG PO ×2 (09:35→17:44)
[2021-09-30] MEDS: oxyCODONE HCL (*CRX) 5 MG TAB IR PO ×3 (09:35→21:30)
[2021-09-30] MEDS: LIDOCAINE 5% PATCH 2 PATCH TRANSDERM (09:36)
[2021-09-30] MEDS: POLYSACCHARIDE IRON COMPLEX 150 MG CAPSULE PO (09:37)
[2021-09-30] MEDS: SODIUM BICARBONATE TAB 650 MG TABLET PO ×3 (09:37→17:45)
[2021-09-30] MEDS: CYANOCOBALAMIN 1,000 MCG TABLET 3000 MCG PO (09:37)
[2021-09-30] MEDS: BENZONATATE 100 MG CAPSULE 200 MG PO ×3 (09:37→17:44)
[2021-09-30] MEDS: CLINDAMYCIN PHOS 1% 30 GM GEL 1 APPLIC TOPICAL (09:38)
[2021-09-30] MEDS: FEBUXOSTAT 40 MG TABLET PO (09:38)
[2021-09-30] MEDS: MICONAZOLE NITRATE 2% CREAM 30 GM TUBE 1 APPLIC TOPICAL (09:38)
[2021-09-30] MEDS: OPTI-GEN TAB 1 TABLET PO ×2 (09:38→17:44)
[2021-09-30] MEDS: ASPIRIN 81 MG ENTERIC TABLET PO (09:39)
[2021-09-30] MEDS: VITAMIN B COMPLEX CAPSULE 1 CAP PO (09:39)
[2021-09-30] MEDS: CLOPIDOGREL BISULFATE 75 MG TABLET PO (09:39)
[2021-09-30] MEDS: polyethylene glycoL 3350 17 GM POWD.PACK PO (09:39)
--- NOTE | 2021-09-30 11:17 | ECG_ITS ---
Measurements Intervals [place] Rate: 106 P: 24 SC: 193 QRS: -64 QRSD: 88 T: 12 QT: 358 QTc: 477 Interpretive Statements SINUS TACHYCARDIA INCOMPLETE RIGHT BUNDLE BRANCH BLOCK LEFT ANTERIOR FASCICULAR BLOCK BORDERLINE T WAVE ABNORMALITY- INFERIOR LEADS BASELINE WANDER- V5 ABNORMAL ECG Electronically Signed On 09-30-2021 13:57:04 DEBURRING MACHINE OPERATOR by James Sanchez D.O.
--- NOTE | 2021-09-30 11:18 | PM.PNCARD ---
Progress Note: A&P Assessment and Plan (1) Chest pain: Qualifiers: Chest pain type: chest pain due to myocardial ischemia Ischemic chest pain type: other angina pectoris type Qualified Code(s): I20.8 - Other forms of angina pectoris Code(s): R07.9 - Chest pain, unspecified Status: Acute Assessment and Plan: He has a longstanding history of atypical intermittent recurrent chest pain and referred pain and previous MIs and multiple stent implantation. While chest pain atypical given increasing severity and similarity to chest pain resolved after PCI, this is concerning. Give sublingual nitroglycerin now, repeat 12 lead EKG, troponin. One inch Nitropaste q6h may be useful if able to tolerate, however, he has longstanding complicated history with orthostatic hypotension and intolerance to Imdur and Ranexa previously. Continue with symptomatic treatment. Differential GI, musculoskeletal etiology, spasm. Unlikely acute stent thrombosis unless significant troponin elevation and or EKG changes. Discussed risk versus benefit of repeat coronary angiography particular dangers associated with underlying renal insufficiency and worsening renal failure in addition to standard risks of which he knows well. Recommendations to follow. Will discuss with Interventional Cardiology. (2) Elevated troponin: Code(s): R77.8 - Other specified abnormalities of plasma proteins Status: Acute Assessment and Plan: Elevated troponins, probably chronically elevated. Fairly flat curve thus far suggestive of Type II infarction in setting of renal failure, CAD. Previously, no ischemic changes on his EKG Continue aspirin, metoprolol, Repatha. He will need outpatient follow-up with his roof assembler at the [place]. (3) Coronary artery disease: Qualifiers: Coronary Disease-Associated Artery/Lesion type: [place] artery [place] vs. transplanted heart: [place] heart Associated angina: with other forms of angina Qualified Code(s): I25.118 - Atherosclerotic heart disease of [place] coronary artery with other forms of angina pectoris Code(s): I25.10 - Atherosclerotic heart disease of [place] coronary artery without angina pectoris Status: Acute Assessment and Plan: Recent PCI at [place]. Continue dual anti-platelet therapy. Need to review records. (4) Sinus tachycardia: Code(s): R00.0 - Tachycardia, unspecified Status: Acute Assessment and Plan: Likely from beta-neris withdrawal. Heart rate has improved. Continue low-dose metoprolol tartrate 12.5 mg p.o. b.i.d. 2D echocardiogram Doppler showed normal LV systolic function with an EF of 65-70%, grade 1 diastolic dysfunction. Mild calcification of the aortic valve, moderate aortic valve sclerosis. Mild MR, mild TR. (5) Ischemic cardiomyopathy: Code(s): I25.5 - Ischemic cardiomyopathy Status: Chronic Assessment and Plan: Echocardiogram showed normal systolic function. Grade 1 diastolic dysfunction. No regional wall motion abnormalities. (6) Paroxysmal atrial fibrillation: Code(s): I48.0 - Paroxysmal atrial fibrillation Status: Acute Assessment and Plan: Currently in sinus rhythm, sinus tachycardia. (7) Hypotension: Qualifiers: Hypotension type: orthostatic hypotension Qualified Code(s): I95.1 - Orthostatic hypotension Code(s): I95.9 - Hypotension, unspecified Status: Acute Assessment and Plan: Significant hypotension at home. Currently improved. (8) Fever: Qualifiers: Fever type: due to other condition Qualified Code(s): R50.81 - Fever presenting with conditions classified elsewhere Code(s): R50.9 - Fever, unspecified Status: Acute Assessment and Plan: Workup underway per PCP. Oncology consultation. Subjective Date/time seen: Date of service: 09/30/21 11:18 Interval history: Cardiology follow-up for chest pain.
[2021-09-30 11:54] LABS: Glucose Point of Care 131 mg/dl (65-105)
[2021-09-30] MEDS: METOPROLOL TARTRATE 12.5 MG TABLET PO ×2 (12:27→20:49)
--- NOTE | 2021-09-30 12:42 | PDONCCN ---
HPI - Date of Consult Date/Time: 09/30/21 12:42 Requesting Physician: Mey Mclaughlin MD Primary Care Provider: Annetta Burton MD - Consult Narrative Reason for consult: Normocytic anemia and fever Narrative: Freddy Ferguson is a 81 year old male with multiple comorbidities including type 2 diabetes, hypothyroidism, ischemic cardiomyopathy, obstructive sleep apnea, atrial fibrillation and history of stroke came into the hospital with low blood pressure and tachycardia. He was also having intermittent chest discomfort. He denies any dysuria and hematuria. No bleeding and bruising. In the hospital he was found to have intermittent febrile episodes. CT chest showed stable chronic interstitial lung disease. CT abdomen showed nonspecific splenic hypodensity could be granuloma versus hemangioma. Metastatic disease and lymphoma is less likely. Lesion was 1.8 cm in size. Labs showed hemoglobin of 9.9 dropped from 12.4 previously. WBC count now normal at 4.6. Platelet normal. He denies any lymphadenopathy. He denies any night sweats. He has lost 35 lb weight in last 6 months duration. He was admitted to the hospital in [place] for 6 weeks duration due to heart attack. He is eating better and slowly gaining weight. Denies any other complaints. Review of Systems - Review of Systems All systems reviewed & are unremarkable except as noted in HPI and bel - Neurologic Reports system reviewed and no additional complaints, except as documented, Reports behavioral changes, Reports weakness, Denies hearing normal, Denies confusion, Denies headache(s) [facility] Medical History: Medical History (Last Reviewed 09/25/21 @ 11:27 by Raj Lau MD) Adrenal insufficiency (Lisandro's disease) Poorly documented, patient denies. Anemia Benign prostatic hyperplasia Cerebrovascular accident Onset Date: 2018 Chronic kidney disease due to diabetes mellitus Chronic obstructive pulmonary disease, unspecified Coronary artery disease History of multiple stents and CABG. COVID-19 Degenerative disc disease Essential hypertension Gastroesophageal reflux disease GI bleed Onset Date: 11/2018 Presumed to be diverticular in origin. Gout Hypothyroidism Insulin dependent type 2 diabetes mellitus Ischemic cardiomyopathy Macular degeneration Mixed hyperlipidemia Myocardial infarction Obstructive sleep apnea on CPAP Osteoarthritis Paroxysmal atrial fibrillation Peptic ulcer Peripheral vascular disease due to secondary diabetes Vitamin D deficiency Surgical History: Surgical History (Last Reviewed 09/25/21 @ 11:27 by Raj Lau MD) History of appendectomy Onset Date: 1962 History of bilateral cataract extraction History of cardiac catheterization Multiple over the years History of colonoscopy with polypectomy History of coronary artery bypass graft x 3 Onset Date: 01/2018 MOHAMUD graft to LAD and vein graft to OM1 and OM3. Done at [facility]. History of fusion of cervical spine History of heart artery stent History of loop recorder History of lumbar discectomy History of throat surgery History of tonsillectomy History of transurethral resection of prostate Status post trigger finger release Family History: Family History (Last Reviewed 09/25/21 @ 11:27 by Raj Lau MD) Mother Family history of diabetes mellitus in first degree relative Diabetes mellitus Kidney disease Father Family history of congestive heart failure Macular degeneration Sibling Macular degeneration Meds Home Medications Medication Instructions Recorded Confirmed Type febuxostat 40 mg tablet 40 mg PO DAILY 07/20/19 09/24/21 History polymyxin B sulfate 10,000 1 drop OPHTHALMIC (EYE) Q4HWA ml 12/13/19 09/24/21 History unit-trimethoprim 1 mg/mL eye drops cyanocobalamin (vitamin B-12) 3,000 mcg PO DAILY 90 Days #90 cap 12/20/19 09/24/21 Rx 3,000 mcg capsule PreserVision AREDS-2 1 tablet
[2021-09-30 14:28] LABS: Iron 37 ug/dL (49-181)
[2021-09-30 14:37] LABS: Percent Iron Saturation 20 % (20-50)
--- NOTE | 2021-09-30 15:00 | WPDCDIQUERY2 ---
CDI Query Clarification Request -Sepsis documented -Blood Cultures negative -IV antibiotics given 09/25- 09/27 then placed on hold -No source of infection identified -SOFA score 0 Please clarify if Sepsis is ruled in or ruled out or unable to determine <Dipika Kurtz - Last Filed: 09/30/21 15:09> sepsis ruled out <Mey Mclaughlin MD - Last Filed: 09/30/21 21:56> Clarified Diagnosis (1) Fever of unknown origin (FUO): Code(s): R50.9 - Fever, unspecified <Dipika Kurtz - Last Filed: 09/30/21 15:09> Status: Acute <Dipika Kurtz - Last Filed: 09/30/21 15:09> Provider Comments sepsis ruled out <Mey Mclaughlin MD - Last Filed: 09/30/21 21:56>
[2021-09-30 15:31] LABS: Lactate Dehydrogenase 630 U/L (313-618)
--- NOTE | 2021-09-30 16:32 | PM.IMPN ---
Progress Note: A&P Assessment and Plan (1) Hyponatremia: Code(s): E87.1 - Hypo-osmolality and hyponatremia Status: Acute (2) Low blood pressure reading: Code(s): R03.1 - Nonspecific low blood-pressure reading Status: Acute (3) Sinus tachycardia: Code(s): R00.0 - Tachycardia, unspecified Status: Acute (4) Type 2 diabetes mellitus with other diabetic kidney complication: Code(s): E11.29 - Type 2 diabetes mellitus with other diabetic kidney complication Status: Chronic (5) Presence of aortocoronary bypass graft: Onset Date: 05/11/18 Code(s): Z95.1 - Presence of aortocoronary bypass graft Status: Chronic (6) OAB (overactive bladder): Code(s): N32.81 - Overactive bladder Status: Chronic (7) Mixed hyperlipidemia due to type 2 diabetes mellitus: Code(s): E11.69 - Type 2 diabetes mellitus with other specified complication; E78.2 - Mixed hyperlipidemia Status: Chronic (8) Chronic kidney disease, stage 3 (moderate): Onset Date: 03/08/19 Qualifiers: Chronic kidney disease stage 3 subtype: stage 3b (GFR 30-44) Qualified Code(s): N18.32 - Chronic kidney disease, stage 3b Code(s): N18.3 - Chronic kidney disease, stage 3 (moderate) Status: Chronic (9) Gastro-esophageal reflux disease without esophagitis: Onset Date: 03/08/19 Code(s): K21.9 - Gastro-esophageal reflux disease without esophagitis Status: Chronic (10) Diabetic peripheral neuropathy: Code(s): E11.42 - Type 2 diabetes mellitus with diabetic polyneuropathy Status: Chronic (11) Chronic gout, unspecified, without tophus (tophi): Code(s): M1A.9XX0 - Chronic gout, unspecified, without tophus (tophi) Status: Chronic (12) Mixed hyperlipidemia: Code(s): E78.2 - Mixed hyperlipidemia Status: Chronic (13) Chronic obstructive pulmonary disease, unspecified: Qualifiers: COPD type: unspecified COPD Qualified Code(s): J44.9 - Chronic obstructive pulmonary disease, unspecified Code(s): J44.9 - Chronic obstructive pulmonary disease, unspecified Status: Chronic (14) Ischemic cardiomyopathy: Code(s): I25.5 - Ischemic cardiomyopathy Status: Chronic (15) Anemia: Code(s): D64.9 - Anemia, unspecified Status: Acute (16) Obstructive sleep apnea on CPAP: Code(s): G47.33 - Obstructive sleep apnea (adult) (pediatric); Z99.89 - Dependence on other enabling machines and devices Status: Acute (17) Paroxysmal atrial fibrillation: Code(s): I48.0 - Paroxysmal atrial fibrillation Status: Acute (18) Essential hypertension: Code(s): I10 - Essential (primary) hypertension Status: Acute (19) Hypothyroidism: Code(s): E03.9 - Hypothyroidism, unspecified Status: Acute (20) Coronary artery disease: Qualifiers: Coronary Disease-Associated Artery/Lesion type: [place] artery [place] vs. transplanted heart: [place] heart Associated angina: with other forms of angina Qualified Code(s): I25.118 - Atherosclerotic heart disease of [place] coronary artery with other forms of angina pectoris Code(s): I25.10 - Atherosclerotic heart disease of [place] coronary artery without angina pectoris Status: Acute (21) KHAI (obstructive sleep apnea): Code(s): G47.33 - Obstructive sleep apnea (adult) (pediatric) Status: Acute (22) Pulmonary fibrosis: Code(s): J84.10 - Pulmonary fibrosis, unspecified Status: Acute (23) Essential (primary) hypertension: Code(s): I10 - Essential (primary) hypertension Status: Chronic (24) Hypothyroidism (acquired): Code(s): E03.9 - Hypothyroidism, unspecified Status: Chronic (25) Benign prostatic hyperplasia with weak urinary stream: Code(s): N40.1 - Benign prostatic hyperplasia with lower urinary tract symptoms; R39.12 - Poor urinary
[2021-09-30 16:33] LABS: Glucose Point of Care 109 mg/dl (65-105)
[2021-09-30 16:59] LABS: Folic Acid > 20.0 ng/mL (2.76->20); Vitamin B12 > 1000.0 pg/mL (239-931)
[2021-09-30 20:19] LABS: Glucose Point of Care 131 mg/dl (65-105)
[2021-09-30] MEDS: traZODone HCL 50 MG TABLET PO (20:41)
[2021-09-30] MEDS: INSULIN GLARGINE (*BKC) 100 UNITS/ML 10 UNITS SUB-Q (20:41)
[2021-09-30] MEDS: TAMSULOSIN HCL 0.4 MG CAPSULE PO (20:41)
[2021-10-01] VITALS (12 sets, daily range): BP systolic 114–133; BP diastolic 62–78; PULSE 78–116; RESP 16–20; TEMP 36.3–36.9; O2SAT 92–97
[2021-10-01] MEDS: POLYMYXIN/TRIMETHOPRIM OPHTH 10 ML DROPS 1 DROP EACH EYE ×4 (05:43→16:36)
[2021-10-01] MEDS: LEVOTHYROXINE SODIUM 25 MCG TABLET PO (05:43)
[2021-10-01 05:51] LABS: Basophils Percent Auto 0.4 % (0.2-1.2); Eosinophils Absolute Auto 0.4 K/mm3 (0-0.3); Eosinophils Percent Auto 8.2 % (0-4.4); Hematocrit 29.5 % (42.0-52.0); Hemoglobin 9.7 g/dL (14.0-18.0); Immature Granulocyte Absolute 0.07 K/mm3 (0.00-0.031); Immature Granulocyte Percent A 1.6 % (0-0.5); Lymphocytes Absolute Auto 0.96 K/mm3 (0.9-3.2); Lymphocytes Percent Auto 21.3 % (18.3-44.2); Mean Corpuscular HGB Conc 32.9 g/dl (32-36); Mean Corpuscular Hemoglobin 30.6 pg (26-34); Mean Corpuscular Volume 93.1 fl (80-100); Mean Platelet Volume 10.1 fl (7.4-10.4); Monocytes Percent Auto 21.1 % (2.6-8.5); Neutrophils Absolute Auto 2.1 K/mm3 (1.3-6.7); Neutrophils Percent Auto 47.4 % (45.5-73.1); Platelet Count Result 212 k/mm3 (150-375); Red Blood Count 3.17 M/mm3 (4.6-6.20); Red Cell Distribution Width 14.2 % (11.5-14.5); White Blood Count 4.5 K/mm3 (4.5-10.0)
[2021-10-01 06:06] LABS: Alanine Aminotransferase 17 U/L (4-50); Albumin Level 3.4 g/dL (3.5-5.1); Alkaline Phosphatase 67 U/L (38-126); Anion Gap 6 mmol/L (8-16); Aspartate Amino Transferase 26 U/L (17-59); Bilirubin,Total 0.4 mg/dL (0.2-1.3); Blood Urea Nitrogen 19 mg/dL (9-20); Calcium 8.8 mg/dL (8.4-10.2); Carbon Dioxide 30 mmol/L (22-30); Chloride 98 mmol/L (98-107); Estimated CRCL calculation 32 ml/min; Estimated Glomerular Filt Rate 39; Glucose 121 mg/dL (65-110); Magnesium 2.1 mg/dL (1.6-2.3); Potassium 4.1 mmol/L (3.4-5.0); Sodium 134 mmol/L (137-145)
[2021-10-01 07:57] LABS: Glucose Point of Care 109 mg/dl (65-105)
[2021-10-01] MEDS: PREGABALIN (*CRX) 75 MG CAPSULE 150 MG PO ×2 (08:53→16:36)
[2021-10-01] MEDS: LIDOCAINE 5% PATCH 2 PATCH TRANSDERM (08:53)
[2021-10-01] MEDS: ASPIRIN 81 MG ENTERIC TABLET PO (08:53)
[2021-10-01] MEDS: polyethylene glycoL 3350 17 GM POWD.PACK PO (08:53)
[2021-10-01] MEDS: OPTI-GEN TAB 1 TABLET PO ×2 (08:54→16:36)
[2021-10-01] MEDS: SODIUM BICARBONATE TAB 650 MG TABLET PO ×3 (08:54→16:36)
[2021-10-01] MEDS: METOPROLOL TARTRATE 12.5 MG TABLET PO (08:54)
[2021-10-01] MEDS: VITAMIN B COMPLEX CAPSULE 1 CAP PO (08:54)
[2021-10-01] MEDS: POLYSACCHARIDE IRON COMPLEX 150 MG CAPSULE PO (08:54)
[2021-10-01] MEDS: FEBUXOSTAT 40 MG TABLET PO (08:54)
[2021-10-01] MEDS: CLOPIDOGREL BISULFATE 75 MG TABLET PO (08:54)
[2021-10-01] MEDS: CYANOCOBALAMIN 1,000 MCG TABLET 3000 MCG PO (08:54)
[2021-10-01] MEDS: BENZONATATE 100 MG CAPSULE 200 MG PO ×3 (08:54→16:36)
[2021-10-01] MEDS: oxyCODONE HCL (*CRX) 5 MG TAB IR PO ×2 (09:06→16:40)
--- NOTE | 2021-10-01 11:12 | PM.IMPN ---
Progress Note: A&P Assessment and Plan (1) Fever of unknown origin (FUO): Code(s): R50.9 - Fever, unspecified Status: Resolved Assessment and Plan: See below plan Additional Plan 09/25/21 trop elevated cp resolved bp elevated metoprolol home dose restarted cardio consulted meets criteria for sepsis pt febrile source?? COVID negative, urine clean, cxr unrevealing, CT chest ordered blood cultures pending cefepime and vanc until further evaluation complete remain in IMU for now STAT blood culture if becomes febrile again 09/26/21 complains of L sided neuropathic pain and hip pain febrile yesterday hypotensive today cont current care cultures pending will eval spine and pelvis w CT transfer to med surg w tele 09/27/21 pt afebrile > 24 hours cultures and imaging without etiology will monitor off abx for 48hrs prior to dc home bladder scan straight cath PRN laxative x now stool on CT slight rise in cr today, vanco and nephrotoxic meds discontinued remains stable for med tele dispo 09/28/21 pt cont to have fever since admission, CRP rising, BP improved differential malignancy, infection viral/fungal/bacterial/parasitic, thrombus, vasculitis, ILD, autoimmune (low 09/18 age) ECHO and labs ordered hold abx until seen by oncology and pulmonology cont supportive care renal fxn stable 09/29/21 ECHO from admission without signs of valvulopathy still with fever of unknown origin complains of shoulder pain, acute on chronic had rotator cuff repair and remote h/o b/l steroid injections lidocaine patches PRN tramadol PRN renal fxn stable CKD3 pending workup consult ortho customer response representative 09/30/21 Seen by Ortho no source of infection noted seen by Oncology unlikely to have oncological source of fever Patient now afebrile 48 hours off antibiotics Anticipate discharge home tomorrow if remains afebrile with outpatient follow-up at the [facility] for ongoing investigation of fever of unknown origin if initial workup negative 10/01/21 Pt feels very weak in his legs awaiting placement Subjective Date/time seen: 10/01/21 11:12 Interval history: 81-year-old male with coronary artery disease with history of stents and bypass, hypertension, dyslipidemia, insulin-dependent type 2 diabetes mellitus, chronic kidney disease, paroxysmal atrial fibrillation, and several other comorbidities who presented to the emergency department for evaluation of low blood pressure, high heart rate and chest pain. Pt is awaiting placement appears much better today . Review of Systems Review of Systems: All systems reviewed & are unremarkable except as noted in HPI and below Exam Const: General: cooperative and healthy appearing; No in distress Nutritional Appearance: overweight Orientation/consciousness: oriented to person HENMT: Head: normal to inspection Resp: Effort & Inspection: no respiratory distress Auscultation: no rhonchi and no wheezes Cardio: Rate: regular rate Rhythm: regular rhythm GI: Inspection: normal to inspection GI Palp: No abdominal tenderness, No Guarding due to palpation present (GI) and No Hepatomegaly present Auscultation: normal bowel sounds Neuro: General: oriented to person Objective Data Vital Signs Vital Signs: Vital Signs - 24 hr 09/30/21 11:25 09/30/21 11:32 09/30/21 11:59 Temperature Pulse Rate 110 H 110 H Respiratory Rate Blood Pressure 113/66 96/66 L Pulse Oximetry 92 09/30/21 12:00 09/30/21 14:55 09/30/21 16:00 Temperature 36.8 C Pulse Rate 114 H 86 80 Respiratory Rate 18 Blood Pressure 134/72 Pulse Oximetry 96 09/30/21 18:14 09/30/21 19:53 09/30/21 19:54 Temperature 37.1 C 36.4 C L 36.4 C L Pulse Rate 97 101 H 101 H Respiratory Rate 18 20 20 Blood Pressure 149/79 H 130/74 130/74 Pulse Oximetry 95 95 95 09/30/21 20:00 09/30/21 20:01 09/30/21 20:02 Temperature 36.4 C L 36.4 C L Pulse Rate 104 H 106 H 113 H Respiratory Rate 20 20 Blood Pressure 123/71 126/7
[2021-10-01 11:46] LABS: Glucose Point of Care 129 mg/dl (65-105)
--- NOTE | 2021-10-01 13:36 | PM.DS ---
DS: Admitting Diagnosis Discharge Date 10/02/2021 Admitting Diagnosis low blood pressure high HR DS: Discharge Diagnosis Discharge Diagnosis (1) Fever of unknown origin (FUO): Code(s): R50.9 - Fever, unspecified Status: Resolved Assessment and Plan: 09/25/21 trop elevated cp resolved bp elevated metoprolol home dose restarted cardio consulted meets criteria for sepsis pt febrile source?? COVID negative, urine clean, cxr unrevealing, CT chest ordered blood cultures pending cefepime and vanc until further evaluation complete remain in IMU for now STAT blood culture if becomes febrile again 09/26/21 complains of L sided neuropathic pain and hip pain febrile yesterday hypotensive today cont current care cultures pending will eval spine and pelvis w CT transfer to [employer] surg w tele 09/27/21 pt afebrile > 24 hours cultures and imaging without etiology will monitor off abx for 48hrs prior to dc home bladder scan straight cath PRN laxative x now stool on CT slight rise in cr today, vanco and nephrotoxic meds discontinued remains stable for med tele dispo 09/28/21 pt cont to have fever since admission, CRP rising, BP improved differential malignancy, infection viral/fungal/bacterial/parasitic, thrombus, vasculitis, ILD, autoimmune (low 09/18 age) ECHO and labs ordered hold abx until seen by oncology and pulmonology cont supportive care renal fxn stable 09/29/21 ECHO from admission without signs of valvulopathy still with fever of unknown origin complains of shoulder pain, acute on chronic had rotator cuff repair and remote h/o b/l steroid injections lidocaine patches PRN tramadol PRN renal fxn stable CKD3 pending workup consult ortho vice president of contracts 09/30/21 Seen by Ortho no source of infection noted seen by Oncology unlikely to have oncological source of fever Patient now afebrile 48 hours off antibiotics Anticipate discharge home tomorrow if remains afebrile with outpatient follow-up at the [facility] for ongoing investigation of fever of unknown origin if initial workup negative 10/01/21 Pt feels very weak in his legs awaiting placement (2) Spinal stenosis at L4-L5 level: Code(s): M48.061 - Spinal stenosis, lumbar region without neurogenic claudication Status: Acute Assessment and Plan: SEE ABOVE (3) 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: Code(s): M48.061 - Spinal stenosis, lumbar region without neurogenic claudication Status: Acute (4) Post-COVID syndrome: Code(s): B94.8 - Sequelae of other specified infectious and parasitic diseases Status: Acute DS: Summary Hospital Course Hospital Course: 81-year-old male with coronary artery disease with history of stents and bypass, hypertension, dyslipidemia, insulin-dependent type 2 diabetes mellitus, chronic kidney disease, paroxysmal atrial fibrillation, and several other comorbidities who presented to the emergency department for evaluation of low blood pressure, high heart rate and chest pain. Pt is awaiting placement appears much better today Time Spent with Patient Time attestation: Total time spent providing and/or coordinating discharge services:45 minutes on day of discharge Exam Const: General: cooperative and healthy appearing; No in distress Nutritional Appearance: overweight Orientation/consciousness: oriented to person HENMT: Head: normal to inspection Resp: Effort & Inspection: no respiratory distress Auscultation: no rhonchi and no wheezes Cardio: Rate: regular rate Rhythm: regular rhythm GI: Inspection: normal to inspection Auscultation: normal bowel sounds Neuro: General: oriented to person DS: Data Data Completed and Pending Labs on day of discharge: Labs from last 24 hours 10/01/21 10/01/21 10/01/21 11:31 07:49 05:25 WBC RBC Hgb Hct MCV MCH MCHC RDW Plt Count MPV Immature Gran % (Auto) Neut % (Auto) Lymph % (Auto) [place] % (Au
--- NOTE | 2021-10-01 14:39 | PM.PNCARD ---
Progress Note: A&P Assessment and Plan (1) Chest pain: Qualifiers: Chest pain type: chest pain due to myocardial ischemia Ischemic chest pain type: other angina pectoris type Qualified Code(s): I20.8 - Other forms of angina pectoris Code(s): R07.9 - Chest pain, unspecified Status: Acute Assessment and Plan: Trop stable minimal elevation not c/w ACS or plaque rupture. CP resolved after resuming Metoprolol. Inc to 25mg BID at discharge. stable for discharge (2) Elevated troponin: Code(s): R77.8 - Other specified abnormalities of plasma proteins Status: Acute Assessment and Plan: Elevated troponins, probably chronically elevated. Fairly flat curve thus far suggestive of Type II infarction in setting of renal failure, CAD. As above. Previously, no ischemic changes on his EKG Continue aspirin, metoprolol, Repatha. He will need outpatient follow-up with his infectious disease physician at the [facility]. (3) Coronary artery disease: Qualifiers: Associated angina: with other forms of angina Coronary Disease-Associated Artery/Lesion type: [place] artery [place] vs. transplanted heart: [place] heart Qualified Code(s): I25.118 - Atherosclerotic heart disease of [place] coronary artery with other forms of angina pectoris Code(s): I25.10 - Atherosclerotic heart disease of [place] coronary artery without angina pectoris Status: Acute Assessment and Plan: Recent PCI at [facility]. Continue dual anti-platelet therapy. (4) Sinus tachycardia: Code(s): R00.0 - Tachycardia, unspecified Status: Acute Assessment and Plan: Likely from beta-neris withdrawal. Heart rate has improved. Continue low-dose metoprolol tartrate 12.5 mg p.o. b.i.d. 2D echocardiogram Doppler showed normal LV systolic function with an EF of 65-70%, grade 1 diastolic dysfunction. Mild calcification of the aortic valve, moderate aortic valve sclerosis. Mild MR, mild TR. (5) Ischemic cardiomyopathy: Code(s): I25.5 - Ischemic cardiomyopathy Status: Chronic Assessment and Plan: Echocardiogram showed normal systolic function. Grade 1 diastolic dysfunction. No regional wall motion abnormalities. (6) Paroxysmal atrial fibrillation: Code(s): I48.0 - Paroxysmal atrial fibrillation Status: Acute Assessment and Plan: Currently in sinus rhythm, sinus tachycardia. (7) Hypotension: Qualifiers: Hypotension type: orthostatic hypotension Qualified Code(s): I95.1 - Orthostatic hypotension Code(s): I95.9 - Hypotension, unspecified Status: Acute Assessment and Plan: Significant hypotension at home. Currently improved. (8) Fever: Qualifiers: Fever type: due to other condition Qualified Code(s): R50.81 - Fever presenting with conditions classified elsewhere Code(s): R50.9 - Fever, unspecified Status: Acute Assessment and Plan: Workup underway per PCP. Oncology consultation noted. Subjective Date/time seen: Date of Service: 10/01/21 14:39 Interval history: Cardiology follow-up for chest pain. History of CAD. 09/26/2019 to:He feels well this morning. Denies any chest pain, shortness of breath. He is complaining of some back pain and shoulder pain. He tells me that he has sciatica and is seeking out some help from pain management [place] elevated troponins did not represent ACS, chest pain atypical, continue usual care for secondary prevention. 09/29/2021: Had some chest discomfort today, like he has had for years. He was talking to his brother in suddenly felt overwhelmingly weak, like he 1 to collapse, none was having some chest pains going across his chest lasting 4 minute at a time but recurrent. He received TN G x3, faded away. Nontender, nonpleuritic, nonpositional. Troponins: 0.038 and 0.045. Blood pressure stable. Last fever was yesterday afternoon up to 101.1, and this morning 99.7. 09/30/21:
[2021-10-01 15:19] LABS: EDCOVIDSCREEN Negative (Negative)
[2021-10-01 16:19] LABS: Glucose Point of Care 116 mg/dl (65-105)
[2021-10-01 21:32] LABS: CMV DNA Quant PCR IU/mL Not Detected; Cytomegalovirus DNA Quant PCR Not Detected log IU/mL; Cytomegalovirus DNA Source Plasma
[2021-10-02 20:19] LABS: ANA Cascade Screen Negative (Negative)
[2021-10-03 11:32] LABS: ANCA Screen Negative (Negative)
== END 2021-10-01 17:45 | DRG 864 ==
LOC: ANHED 14:40 → ANHIMU 14:57 → ANH2MED 10-01 13:33 → ANHIMU 10-02 11:14
PROVIDERS: Internal Medicine Cardiovascular Disease; Internal Medicine Hematology & Oncology; Internal Medicine Pulmonary Disease; Physician Assistant; Admitting Provider Hospitalist; Emergency Provider Emergency Medicine; PCP Family Medicine; Visit Provider Family Medicine
DX: R50.9 Fever, unspecified (principal); I21.A1 Myocardial infarction type 2; E27.40 Unspecified adrenocortical insufficiency; E87.1 Hypo-osmolality and hyponatremia; I50.32 Chronic diastolic (congestive) heart failure; I13.0 Hypertensive heart and chronic kidney disease with heart failure and stage 1 through stage 4 chronic kidney disease, or unspecified chronic kidney disease; R00.0 Tachycardia, unspecified; R07.89 Other chest pain; U09.9 Post COVID-19 condition, unspecified; Z20.822 Contact with and (suspected) exposure to COVID-19; I25.5 Ischemic cardiomyopathy; I48.0 Paroxysmal atrial fibrillation; I95.1 Orthostatic hypotension; R50.81 Fever presenting with conditions classified elsewhere; E11.51 Type 2 diabetes mellitus with diabetic peripheral angiopathy without gangrene; I73.9 Peripheral vascular disease, unspecified; E11.22 Type 2 diabetes mellitus with diabetic chronic kidney disease; N18.32 Chronic kidney disease, stage 3b; K21.9 Gastro-esophageal reflux disease without esophagitis; E03.9 Hypothyroidism, unspecified; E11.69 Type 2 diabetes mellitus with other specified complication; E78.2 Mixed hyperlipidemia; H35.30 Unspecified macular degeneration; G47.33 Obstructive sleep apnea (adult) (pediatric); M19.90 Unspecified osteoarthritis, unspecified site; I95.9 Hypotension, unspecified; E55.9 Vitamin D deficiency, unspecified; J44.9 Chronic obstructive pulmonary disease, unspecified; M1A.9XX0 Chronic gout, unspecified, without tophus (tophi); D63.1 Anemia in chronic kidney disease; D63.8 Anemia in other chronic diseases classified elsewhere; I25.10 Atherosclerotic heart disease of native coronary artery without angina pectoris; N32.81 Overactive bladder; J84.10 Pulmonary fibrosis, unspecified; N40.0 Benign prostatic hyperplasia without lower urinary tract symptoms; M48.061 Spinal stenosis, lumbar region without neurogenic claudication; Z79.4 Long term (current) use of insulin; Z95.1 Presence of aortocoronary bypass graft; Z95.5 Presence of coronary angioplasty implant and graft; Z86.73 Personal history of transient ischemic attack (TIA), and cerebral infarction without residual deficits; Z90.49 Acquired absence of other specified parts of digestive tract; Z98.42 Cataract extraction status, left eye; Z98.41 Cataract extraction status, right eye
CPT/HCPCS: 36415; 71045; 71250; 72131; 73030; 74176; 76705; 78306; 80048; 80053; 80202; 81001; 82533; 82550; 82565; 82570; 82607; 82728; 82746; 82948; 83036; 83540; 83550; 83605; 83615; 83690; 83735; 83880; 83930; 83935; 84100; 84145; 84300; 84443; 84484; 85025; 85380; 85610; 85730; 86036; 86038; 86140; 86430; 86592; 86703; 86757; 87040; 87103; 87426; 87497; 87502; 87804; 93005; 93306; 93970; 96360; 97110; 97161; 97165; 97530; 97535; 99285; A9270; A9561; C9803; G0378; G0432; J0692; J1815; J3370; J7030; U0003; U0005

== ENCOUNTER 2022-06-09 06:00 | Emergency (ER) | payer MEDICARE, OTHER, SELFPAY ==
--- NOTE | ~2022-06-09 | CT_ITS ---
EXAMINATION: CT abdomen pelvis wo con DATE: 06/09/2022 07:31 INDICATION: Urinary frequency, dysuria with burning sensation with urination and intermittent back pa in. TECHNIQUE: Computed tomography (CT) of the abdomen and pelvis was performed without intravenous contr ast. Automated exposure control and iterative reconstruction technique were employed. The dose-length product was 740.26 mGy-cm. COMPARISON: None FINDINGS: Mild bronchiectasis and scattered mild atelectasis at the bilateral lung bases. Heart size is normal. Median sternotomy wires and mediastinal surgical clips consistent with prior coronary artery bypass grafting. There is also been prior coronary artery stenting. No pericardial effusion. Small sliding-t ype hiatal hernia. Liver, gallbladder, pancreas and bilateral adrenal glands are normal. 2.4 cm fluid attenuation splenic cyst. There are also a few small splenic calcifications consistent with old gran ulomatous disease. Nonobstructing stones at the upper poles of both kidneys measuring 2 mm on the lef t and 1 mm on the right. No ureteral stones or hydronephrosis. Subtle haziness to the fat along the b ladder which could be seen with cystitis. Prostatomegaly. There are a few diverticula along the sigmo id colon without adjacent inflammatory change to suggest diverticulitis. No bowel obstruction. The ap pendix is not visualized. No pericecal inflammatory change to suggest acute appendicitis. Small amoun t of likely reactive free fluid in the pelvis. No abscess or free intraperitoneal gas. Mild lumbar de xtrocurvature with severe lumbosacral and moderate lumbar spondylosis. IMPRESSION: 1. Bilateral nonobstructing nephrolithiasis with no ureteral stones or hydronephrosis. 2. Subtle haziness to the fat surrounding the bladder which could be seen with cystitis. 3. Minimal likely reactive free fluid in the pelvis. Reviewed, dictated and finalized at location A. IMPRESSION: 1. Bilateral nonobstructing nephrolithiasis with no ureteral stones or hydronep hrosis. 2. Subtle haziness to the fat surrounding the bladder which could be seen with cystitis. 3. Minimal likely reactive free fluid in the pelvis.
[2022-06-09 06:05] VITALS: BP 141/84; PULSE 113; RESP 20; TEMP 36.5; O2SAT 96
--- NOTE | 2022-06-09 06:36 | ED.MALEGU ---
HPI - Male Genitourinary General Chief complaint: Urogenital-Male <Merna Valdes MD - Last Filed: 06/20/22 15:34> Stated complaint: UTI? <Merna Valdes MD - Last Filed: 06/20/22 15:34> Time Seen by Provider: 06/09/22 06:04 <Merna Valdes MD - Last Filed: 06/20/22 15:34> History of Present Illness HPI Narrative: Patient is an 82-year-old male with a history of CKD, CAD, hypertension, diabetes presenting with dysuria. Patient states that for the last 3 months he has had increasing difficulty with urination. States that he has also had intermittent burning. Patient has been traveling lately so he did not mention any of his symptoms to his family until today. Patient states he will sometimes have intermittent abdominal pain that lasts for several seconds and goes away. Denies any fevers or chills, chest pain, new shortness of breath, nausea or vomiting, leg swelling. Endorses chronic diarrhea. <Merna Valdes MD - Last Filed: 06/20/22 15:34> Related Data Home medications: Home Medications Medication Instructions Recorded Confirmed febuxostat 40 mg tablet 40 mg PO DAILY 07/20/19 06/17/22 polymyxin B sulfate 10,000 1 drop ophthalmic (eye) Q4HWA 12/13/19 06/17/22 unit-trimethoprim 1 mg/mL eye drops insulin aspart U-100 100 unit/mL 1 sliding scale dose subcut 05/25/20 06/17/22 subcutaneous solution (Novolog USEASDIRECTD U-100 Insulin aspart) vit C 250 mg-vit E 90 mg-zinc 40 1 tablet PO BID 05/25/20 06/17/22 mg-copper 1 [id number] capsule (PreserVision AREDS-2) vitamin B complex (B 1 tablet PO DAILY 05/25/20 06/17/22 Complex-Vitamin B12 tablet) clopidogrel 75 mg tablet 75 mg PO DAILY 10/27/20 06/17/22 alirocumab 75 mg/mL subcutaneous 75 mg subcut [id number] 07/16/21 06/17/22 pen injector aspirin 81 mg tablet,delayed 81 mg PO DAILY 09/24/21 06/17/22 release clindamycin phosphate 1 % topical 1 applic topical DAILY 09/24/21 06/17/22 swab hydrocortisone 2.5 % topical cream 1 applic topical DAILY 09/24/21 06/17/22 ketoconazole 2 % topical cream 1 applic topical DAILY 09/24/21 06/17/22 polyvinyl alcohol 1.4 % eye drops 1 drp EACH EYE TID PRN Dry Eyes 09/24/21 06/17/22 insulin glargine 100 unit/mL 15 unit subcut HS 03/12/22 06/17/22 subcutaneous cartridge pantoprazole 40 mg tablet,delayed 40 mg PO QAM 03/12/22 06/17/22 release <Merna Valdes MD - Last Filed: 06/20/22 15:34> Allergies/Adverse reactions: Allergies Allergy/AdvReac Type Severity Reaction Status Date / Time [id number] Reductase Allergy Unknown Muscle Verified 06/17/22 09:47 Inhibitor Twitching [Iryrfbr-Aae-Fuk Reductase Inhibitor] <Merna Valdes MD - Last Filed: 06/20/22 15:34> Review of Systems Review of Systems: All systems reviewed & are unremarkable except as noted in HPI and below <Merna Valdes MD - Last Filed: 06/20/22 15:34> [facility] Past Medical History Medical History: Medical History 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 Anemia Benign prostatic hyperplasia Cerebrovascular accident (2019) Chronic kidney disease due to diabetes mellitus Chronic obstructive pulmonary disease, unspecified Coronary artery disease History of multiple stents and CABG. COVID-19 Degenerative disc disease Essential hypertension Gastroesophageal reflux disease GI bleed (11/2018) Presumed to be diverticular in origin. Gout Hypothyroidism Insulin dependent type 2 diabetes mellitus Ischemic cardiomyopathy Macular degeneration Mixed hyperlipidemia Myocardial infarction Obstructive sleep apnea on CPAP Osteoarthritis Paroxysmal atrial fibrillation Peptic ulcer Peripheral vascular disease due to secondary diabetes Vitamin D deficiency <Merna Valdes MD - Last Filed: 06/20/22 15:34> Surgical History Surgical History: Surgical History (R
[2022-06-09 06:38] LABS: Add Urine Microscopic? YES; Appearance Urine Clear (Clear); Bilirubin Urine Negative (Negative); Blood Urine 1+ (Negative); Color Urine Yellow (Yellow); Glucose Urine UA Negative (Negative); Ketones Urine Negative (Negative); Leukocyte Esterase Ur Negative LEU/UL (Negative); Nitrate Urine Negative (Negative); Protein Urine 2+ mg/dL (Negative); Urobilinogen Urine Negative mg/dL (<2.0)
[2022-06-09 06:51] LABS: Basophils Percent Auto 0.1 % (0.2-1.2); Eosinophils Absolute Auto 0.1 K/mm3 (0-0.3); Eosinophils Percent Auto 1.2 % (0-4.4); Hematocrit 34.8 % (42.0-52.0); Immature Granulocyte Absolute 0.05 K/mm3 (0.00-0.031); Immature Granulocyte Percent A 0.7 % (0-0.5); Lymphocytes Absolute Auto 0.94 K/mm3 (0.9-3.2); Lymphocytes Percent Auto 12.9 % (18.3-44.2); Mean Corpuscular HGB Conc 34.5 g/dl (32-36); Mean Corpuscular Hemoglobin 31.2 pg (26-34); Mean Corpuscular Volume 90.4 fl (80-100); Mean Platelet Volume 9.7 fl (7.4-10.4); Monocytes Absolute Auto 0.9 K/mm3 (0.1-0.6); Monocytes Percent Auto 12.4 % (2.6-8.5); Neutrophils Absolute Auto 5.3 K/mm3 (1.3-6.7); Neutrophils Percent Auto 72.7 % (45.5-73.1); Platelet Count Result 150 k/mm3 (150-375); Red Blood Count 3.85 M/mm3 (4.6-6.20); White Blood Count 7.3 K/mm3 (4.5-10.0)
[2022-06-09 07:09] VITALS: BP 145/92; PULSE 107; RESP 17; O2SAT 97
[2022-06-09 07:10] LABS: Anion Gap 11 mmol/L (8-16); Blood Urea Nitrogen 24 mg/dL (9-20); Calcium 8.6 mg/dL (8.4-10.2); Carbon Dioxide 26 mmol/L (22-30); Chloride 99 mmol/L (98-107); Estimated CRCL calculation 30 ml/min; Estimated Glomerular Filt Rate 36; Glucose 152 mg/dL (65-110); Potassium 4.2 mmol/L (3.4-5.0); Sodium 136 mmol/L (137-145)
[2022-06-09 08:36] VITALS: BP 154/96; PULSE 105; RESP 20; O2SAT 98
== END 2022-06-09 08:38 | disposition home or self-care (01) ==
PROVIDERS: Emergency Medicine; Emergency Provider Emergency Medicine; PCP Family Medicine
DX: N30.90 Cystitis, unspecified without hematuria (principal); I25.10 Atherosclerotic heart disease of native coronary artery without angina pectoris; E11.22 Type 2 diabetes mellitus with diabetic chronic kidney disease; I12.9 Hypertensive chronic kidney disease with stage 1 through stage 4 chronic kidney disease, or unspecified chronic kidney disease; N18.9 Chronic kidney disease, unspecified; I48.0 Paroxysmal atrial fibrillation; I25.5 Ischemic cardiomyopathy; I25.2 Old myocardial infarction; E11.51 Type 2 diabetes mellitus with diabetic peripheral angiopathy without gangrene; I73.9 Peripheral vascular disease, unspecified; D64.9 Anemia, unspecified; K21.9 Gastro-esophageal reflux disease without esophagitis; M10.9 Gout, unspecified; E03.9 Hypothyroidism, unspecified; H35.30 Unspecified macular degeneration; Z87.11 Personal history of peptic ulcer disease; E55.9 Vitamin D deficiency, unspecified; N40.0 Benign prostatic hyperplasia without lower urinary tract symptoms; Z95.1 Presence of aortocoronary bypass graft; Z95.5 Presence of coronary angioplasty implant and graft; Z98.1 Arthrodesis status; Z98.41 Cataract extraction status, right eye; Z98.42 Cataract extraction status, left eye; Z86.16 Personal history of COVID-19; Z79.82 Long term (current) use of aspirin; Z79.4 Long term (current) use of insulin
CPT/HCPCS: 36415; 74176; 80048; 81001; 85025; 87086; 96365; 99284; J0696

== ENCOUNTER 2022-06-10 18:43 | Emergency (ER) | payer MEDICARE, OTHER, SELFPAY ==
[2022-06-10] VITALS (9 sets, daily range): BP systolic 166–184; BP diastolic 100–112; PULSE 88–106; RESP 18–20; TEMP 36.7; O2SAT 96–100
--- NOTE | 2022-06-10 19:37 | ED.MALEGU ---
HPI - Male Genitourinary General Chief complaint: Urogenital-Male <Florencia Emanuel PA-C - Last Filed: 06/10/22 20:42> Stated complaint: uti, unable to urinate <TYSON Mckeon Last Filed: 06/10/22 20:42> Time Seen by Provider: 06/10/22 19:01 <TYSON Mckeon Last Filed: 06/10/22 20:42> Source: patient <Florencia Emanuel PA-C - Last Filed: 06/10/22 20:42> Mode of arrival: ambulatory <TYSON Mckeon Last Filed: 06/10/22 20:42> Limitations: no limitations <Florencia Emanuel PA-C - Last Filed: 06/10/22 20:42> History of Present Illness HPI Narrative: This is a 82 year old male that presents to the ER for difficulty urinating today. Reports he was seen in the ER yesterday and diagnosed with a UTI. Started on Macrobid. Reports he has been having difficulty urinating today. He has only been able to get out dribbles. Denies fever or vomiting. <Florencia Emanuel PA-C - Last Filed: 06/10/22 20:42> Related Data Home medications: Home Medications Medication Instructions Recorded Confirmed febuxostat 40 mg tablet 40 mg PO DAILY 07/20/19 03/12/22 polymyxin B sulfate 10,000 1 drop ophthalmic (eye) Q4HWA 12/13/19 03/12/22 unit-trimethoprim 1 mg/mL eye drops insulin aspart U-100 100 unit/mL 1 sliding scale dose subcut 05/25/20 03/12/22 subcutaneous solution (Novolog USEASDIRECTD U-100 Insulin aspart) vit C 250 mg-vit E 90 mg-zinc 40 1 tablet PO BID 05/25/20 03/12/22 mg-copper 1 bp-elajht-zdwrdt capsule (PreserVision AREDS-2) vitamin B complex (B 1 tablet PO DAILY 05/25/20 03/12/22 Complex-Vitamin B12 tablet) clopidogrel 75 mg tablet 75 mg PO DAILY 10/27/20 03/12/22 alirocumab 75 mg/mL subcutaneous 75 mg subcut [id number] 07/16/21 03/12/22 pen injector aspirin 81 mg tablet,delayed 81 mg PO DAILY 09/24/21 03/12/22 release clindamycin phosphate 1 % topical 1 applic topical DAILY 09/24/21 03/12/22 swab hydrocortisone 2.5 % topical cream 1 applic topical DAILY 09/24/21 03/12/22 ketoconazole 2 % topical cream 1 applic topical DAILY 09/24/21 03/12/22 polyvinyl alcohol 1.4 % eye drops 1 drp EACH EYE TID PRN Dry Eyes 09/24/21 03/12/22 insulin glargine 100 unit/mL 15 unit subcut HS 03/12/22 03/12/22 subcutaneous cartridge pantoprazole 40 mg tablet,delayed 40 mg PO QAM 03/12/22 03/12/22 release <Florencia Emanuel PA-C - Last Filed: 06/10/22 20:42> Allergies/Adverse reactions: Allergies Allergy/AdvReac Type Severity Reaction Status Date / Time Kluflys-IVL-QdD Reductase Allergy Unknown Muscle Verified 06/10/22 18:50 Inhibitor Twitching [Rhmqcuu-Ijg-Euq Reductase Inhibitor] <Florencia Emanuel PA-C - Last Filed: 06/10/22 20:42> Review of Systems Review of Systems: CONSTITUTIONAL: Denies fever GASTROINTESTINAL: Denies abdominal pain, nausea, vomiting GENITOURINARY: Reports dysuria. Denies hematuria <Florencia Emanuel PA-C - Last Filed: 06/10/22 20:42> All systems reviewed & are unremarkable except as noted in HPI and below <Florencia Emanuel PA-C - Last Filed: 06/10/22 20:42> [facility] Past Medical History Medical History: Medical History Adrenal insufficiency (Hinds's disease) Poorly documented, patient denies. Anemia Benign prostatic hyperplasia Cerebrovascular accident (2018) Chronic kidney disease due to diabetes mellitus Chronic obstructive pulmonary disease, unspecified Coronary artery disease History of multiple stents and CABG. COVID-19 Degenerative disc disease Essential hypertension Gastroesophageal reflux disease GI bleed (11/2018) Presumed to be diverticular in origin. Gout Hypothyroidism Insulin dependent type 2 diabetes mellitus Ischemic cardiomyopathy Macular degeneration Mixed hyperlipidemia Myocardial infarction Obstructive sleep apnea on CPAP Osteoarthritis Paroxysmal atrial fibrillation Peptic ulcer Peripheral vascular disease due to seco
[2022-06-10 19:49] LABS: Basophils Percent Auto 0.6 % (0.2-1.2); Eosinophils Absolute Auto 0.1 K/mm3 (0-0.3); Eosinophils Percent Auto 1.5 % (0-4.4); Immature Granulocyte Absolute 0.04 K/mm3 (0.00-0.031); Immature Granulocyte Percent A 0.7 % (0-0.5); Lymphocytes Absolute Auto 1.18 K/mm3 (0.9-3.2); Lymphocytes Percent Auto 21.8 % (18.3-44.2); Mean Corpuscular HGB Conc 32.5 g/dl (32-36); Mean Corpuscular Hemoglobin 31.6 pg (26-34); Mean Corpuscular Volume 97.1 fl (80-100); Mean Platelet Volume 10.6 fl (7.4-10.4); Monocytes Absolute Auto 0.8 K/mm3 (0.1-0.6); Neutrophils Absolute Auto 3.3 K/mm3 (1.3-6.7); Neutrophils Percent Auto 61.4 % (45.5-73.1); Platelet Count Result 191 k/mm3 (150-375); Red Blood Count 4.12 M/mm3 (4.6-6.20); Red Cell Distribution Width 13.9 % (11.5-14.5); White Blood Count 5.4 K/mm3 (4.5-10.0)
[2022-06-10 20:00] LABS: Anion Gap 15 mmol/L (8-16); Blood Urea Nitrogen 27 mg/dL (9-20); Calcium 8.7 mg/dL (8.4-10.2); Carbon Dioxide 27 mmol/L (22-30); Chloride 95 mmol/L (98-107); Estimated CRCL calculation 31 ml/min; Estimated Glomerular Filt Rate 39; Glucose 143 mg/dL (65-110); Potassium 3.9 mmol/L (3.4-5.0); Sodium 137 mmol/L (137-145)
[2022-06-10] MEDS: CEFDINIR 300 MG CAPSULE PO (21:00)
== END 2022-06-10 21:28 | disposition home or self-care (01) ==
PROVIDERS: Physician Assistant; Emergency Provider Emergency Medicine; PCP Family Medicine
DX: N40.1 Benign prostatic hyperplasia with lower urinary tract symptoms (principal); R33.8 Other retention of urine; I25.10 Atherosclerotic heart disease of native coronary artery without angina pectoris; E11.22 Type 2 diabetes mellitus with diabetic chronic kidney disease; I12.9 Hypertensive chronic kidney disease with stage 1 through stage 4 chronic kidney disease, or unspecified chronic kidney disease; N18.9 Chronic kidney disease, unspecified; I48.0 Paroxysmal atrial fibrillation; I25.5 Ischemic cardiomyopathy; I25.2 Old myocardial infarction; E11.51 Type 2 diabetes mellitus with diabetic peripheral angiopathy without gangrene; I73.9 Peripheral vascular disease, unspecified; D64.9 Anemia, unspecified; K21.9 Gastro-esophageal reflux disease without esophagitis; M10.9 Gout, unspecified; E03.9 Hypothyroidism, unspecified; H35.30 Unspecified macular degeneration; Z87.11 Personal history of peptic ulcer disease; E55.9 Vitamin D deficiency, unspecified; Z95.1 Presence of aortocoronary bypass graft; Z95.5 Presence of coronary angioplasty implant and graft; Z98.1 Arthrodesis status; Z98.41 Cataract extraction status, right eye; Z98.42 Cataract extraction status, left eye; Z86.16 Personal history of COVID-19; Z79.82 Long term (current) use of aspirin; Z79.4 Long term (current) use of insulin
CPT/HCPCS: 36415; 80048; 85025; 99283; A9270